=== PATIENT | female | born 1935 | race Caucasian/White ===

== ENCOUNTER 2020-09-03 13:22 | Outpatient (REF) | payer MEDICARE, SELFPAY ==
--- NOTE | 2020-09-03 13:52 | XR_ITS ---
EXAMINATION: XR LUMBOSACRAL SPINE CLINICAL INFORMATION: Back pain. COMPARISON: None TECHNIQUE: Three views of the lumbosacral spine. FINDINGS: There is normal lumbar lordosis. There is mild levoscoliosis The vertebral heights are normal. There is loss of disc height virtually at every disc level with ventral spondylosis. No lytic or sclerotic process seen. The paravertebral soft tissues are normal. XR/XR lumbar spine 2-3V IMPRESSION: Degenerative disc changes lumbar spine with mild levoscoliosis and spondylosis. No visible acute fracture or dislocation.
[2020-09-03 14:30] LABS: MANUAL DIFF FLAG NO
[2020-09-03 14:40] LABS: Basophils Absolute Auto 0.1 X10*3/uL (0.0-0.2); Basophils Percent Auto 1.2 % (0-2); Eosinophils Absolute Auto 0.2 X10*3/uL (0.0-0.4); Eosinophils Percent Auto 2.2 % (0-4); Hemoglobin 14.4 g/dl (12.0-16.0); Imm Gran Abs Auto 0.05 X10*3/uL (0.00-0.03); Imm Gran Pct Auto 0.6 % (0.0-0.4); Lymphocytes Absolute Auto 1.8 X10*3/uL (1.2-4.9); Lymphocytes Percent Auto 20.8 % (20-40); Mean Corpuscular HGB Conc 32.7 g/dl (31.0-35.0); Mean Corpuscular Hemoglobin 28.6 pg (27.0-33.0); Mean Corpuscular Volume 87.5 fL (80-98); Monocytes Absolute Auto 1.3 X10*3/uL (0.1-1.2); Monocytes Percent Auto 14.9 % (2-11); Neutrophils Absolute Auto 5.2 X10*3/uL (2.0-8.3); Neutrophils Percent Auto 60.3 % (45-73); Platelet Count 307 X10*3/uL (160-400); Red Blood Count 5.03 X10*6/uL (4.20-5.50); Red Cell Distribution Width 14.7 % (11.0-16.0); White Blood Count 8.7 X10*3/uL (4.8-10.8)
[2020-09-03 15:13] LABS: Alanine Aminotransferase 11 U/L (0-31); Alkaline Phosphatase 69 U/L (39-117); Anion Gap 15 (12-20); Aspartate Amino Transferase 20 U/L (5-31); Bilirubin Total 0.3 mg/dL (0.0-1.0); Blood Urea Nitrogen 20 mg/dL (9-16); C Reactive Protein 0.04 mg/dL (< or = 0.50); Calcium 9.4 mg/dL (8.4-10.2); Carbon Dioxide 25 mmol/L (22-29); Chloride 102 mmol/L (96-108); Estimated Glomerular Filt Rate 51; Glucose Random 84 mg/dL (60-115); Potassium 5.5 mmol/l (3.3-5.1); Sodium 136 mmol/L (135-145); Total Protein 7.1 g/dL (6.5-8.0)
== END 2020-09-03 13:23 | disposition home or self-care (01) ==
LOC: HO.LAB 13:22
PROVIDERS: PCP Internal Medicine; Visit Provider Internal Medicine
DX: M54.9 Dorsalgia, unspecified (principal); K21.9 Gastro-esophageal reflux disease without esophagitis; J44.9 Chronic obstructive pulmonary disease, unspecified; I10 Essential (primary) hypertension
CPT/HCPCS: 36415; 72100; 80053; 85025; 86140

== ENCOUNTER 2021-02-09 10:57 | Outpatient (REF) | payer MEDICARE, SELFPAY ==
--- NOTE | ~2021-02-09 | XR_ITS ---
EXAMINATION: XR CHEST CLINICAL INFORMATION: Chest wall pain, right. Hypertension. COMPARISON: Previous chest x-rays most recent February [address] February 2020 TECHNIQUE: 2 views of the chest were obtained. FINDINGS: The cardiac and mediastinal contours are stable. There is slight elevation of the right hemidiaphragm similar to previous exams. The lungs are clear. There is blunting of the right costophrenic angle that is unchanged. When compared with previous CT scan there is evidence of previous right lower lobe lobectomy. There is no left pleural effusion. There is no pneumothorax. There are degenerative changes of the spine and thoracolumbar scoliosis. No rib fracture or bone lesion is seen.. XR/XR chest 2V IMPRESSION: Stable postsurgical changes to the right hemithorax with elevation of the right hemidiaphragm and blunting of the costophrenic angle. No evidence for acute disease in the chest.
[2021-02-09 11:30] LABS: MANUAL DIFF FLAG NO
[2021-02-09 11:36] LABS: Basophils Absolute Auto 0.1 X10*3/uL (0.0-0.2); Basophils Percent Auto 0.8 % (0-2); Eosinophils Absolute Auto 0.2 X10*3/uL (0.0-0.4); Hematocrit 44.6 % (37-47); Hemoglobin 14.6 g/dl (12.0-16.0); Imm Gran Abs Auto 0.04 X10*3/uL (0.00-0.03); Imm Gran Pct Auto 0.4 % (0.0-0.4); Lymphocytes Percent Auto 22.5 % (20-40); Mean Corpuscular HGB Conc 32.7 g/dl (31.0-35.0); Mean Corpuscular Hemoglobin 28.5 pg (27.0-33.0); Mean Corpuscular Volume 86.9 fL (80-98); Mean Platelet Volume 11.7 fL (9.4-12.3); Monocytes Absolute Auto 1.2 X10*3/uL (0.1-1.2); Monocytes Percent Auto 13.4 % (2-11); Neutrophils Absolute Auto 5.5 X10*3/uL (2.0-8.3); Neutrophils Percent Auto 60.9 % (45-73); Platelet Count 267 X10*3/uL (160-400); Red Blood Count 5.13 X10*6/uL (4.20-5.50); Red Cell Distribution Width 15.2 % (11.0-16.0)
[2021-02-09 12:17] LABS: Alanine Aminotransferase 13 U/L (0-31); Alkaline Phosphatase 65 U/L (39-117); Anion Gap 16 (12-20); Aspartate Amino Transferase 19 U/L (5-31); Bilirubin Total 0.4 mg/dL (0.0-1.0); Blood Urea Nitrogen 19 mg/dL (9-16); C Reactive Protein 0.04 mg/dL (< or = 0.50); Calcium 9.3 mg/dL (8.4-10.2); Carbon Dioxide 24 mmol/L (22-29); Chloride 102 mmol/L (96-108); Estimated Glomerular Filt Rate 54; Glucose Random 89 mg/dL (60-115); Potassium 5.3 mmol/L (3.3-5.1); Sodium 137 mmol/L (135-145); Total Protein 7.1 g/dL (6.5-8.0)
== END 2021-02-09 10:58 | disposition home or self-care (01) ==
LOC: HO.LAB 10:57
PROVIDERS: PCP Internal Medicine; Visit Provider Internal Medicine
DX: I12.9 Hypertensive chronic kidney disease with stage 1 through stage 4 chronic kidney disease, or unspecified chronic kidney disease (principal); N18.9 Chronic kidney disease, unspecified; R07.89 Other chest pain
CPT/HCPCS: 36415; 71046; 80053; 85025; 86140

== ENCOUNTER → 2021-05-27 14:14 | Outpatient (BNVA) | payer MEDICARE, SELFPAY | PROVIDERS: PCP Internal Medicine; Visit Provider Internal Medicine | DX: R05 Cough (principal); J44.9 Chronic obstructive pulmonary disease, unspecified; R53.83 Other fatigue; Z79.899 Other long term (current) drug therapy | CPT/HCPCS: 99202 ==

== ENCOUNTER 2021-06-23 12:49 | Outpatient (REF) | payer MEDICARE, SELFPAY ==
--- NOTE | 2021-06-23 14:12 | PFT_ITS ---
Forced vital capacity is normal. FEV1 is slightly reduced. [id number] and MVV are moderately reduced. Post bronchodilator therapy, there is no significant response. Total lung capacity and residual volume are slightly decreased. Diffusion capacity is markedly decreased. Resting O2 saturation 91% and with 6 minutes walking, the patient had an oxygen dropped to 84% to 85%, after oxygen 2 L/minute, O2 saturation remained around 94%. IMPRESSION: Mild obstructive airway disorder. Mild restrictive lung disorder. Marked decrease in the diffusion capacity, probably related to pulmonary emphysema and non-pulmonary factors. No significant response to bronchodilator therapy was noted. MD MIKE Trinidad/MODL / [id number]
== END 2021-06-23 12:50 | disposition home or self-care (01) ==
LOC: HO.RESP 12:49
PROVIDERS: PCP Internal Medicine; Visit Provider Internal Medicine
DX: J44.9 Chronic obstructive pulmonary disease, unspecified (principal); R09.02 Hypoxemia; Z79.899 Other long term (current) drug therapy
CPT/HCPCS: 94060; 94727; 94729; 99212

== ENCOUNTER 2021-08-10 12:03 | Outpatient (REF) | payer MEDICARE, SELFPAY ==
--- NOTE | ~2021-08-10 | XR_ITS ---
EXAMINATION: XR LUMBOSACRAL SPINE CLINICAL INFORMATION: Low back pain. COMPARISON: Lumbar spine 09/03/2020 TECHNIQUE: Three views of the lumbosacral spine. FINDINGS: Is maintained lumbar lordosis with grade 1 anterolisthesis L4 over L5 and grade 1 retrolisthesis L2 over L3 L3. Is mild levoscoliosis with loss of disc height from L2-L3 through L5/S1 disc levels. No acute fracture or lytic process seen. Paravertebral soft tissues are normal. XR/XR lumbar spine 2-3V IMPRESSION: Listhesis as described above. Severe degenerative disc changes with mild to moderate levoscoliosis midlumbar spine. No acute fracture or lytic process seen.
--- NOTE | ~2021-08-10 | XR_ITS ---
EXAMINATION: XR PELVIS CLINICAL INFORMATION: Low back pain. COMPARISON: None TECHNIQUE: AP view of the pelvis. FINDINGS: There is normal symmetry of bilateral hip joints and SI joints. No visible acute fracture or dislocation seen. There is no lytic process. The soft tissues are normal. XR/XR pelvis 1-2V IMPRESSION: Unremarkable AP pelvis exam.
[2021-08-10 12:25] LABS: MANUAL DIFF FLAG NO
[2021-08-10 12:30] LABS: Basophils Absolute Auto 0.1 X10*3/uL (0.0-0.2); Eosinophils Absolute Auto 0.1 X10*3/uL (0.0-0.4); Eosinophils Percent Auto 1.8 % (0-4); Hematocrit 43.9 % (37-47); Hemoglobin 14.4 g/dl (12.0-16.0); Imm Gran Abs Auto 0.04 X10*3/uL (0.00-0.03); Imm Gran Pct Auto 0.5 % (0.0-0.4); Lymphocytes Absolute Auto 1.8 X10*3/uL (1.2-4.9); Lymphocytes Percent Auto 22.7 % (20-40); Mean Corpuscular HGB Conc 32.8 g/dl (31.0-35.0); Mean Corpuscular Hemoglobin 28.5 pg (27.0-33.0); Mean Corpuscular Volume 86.8 fL (80-98); Mean Platelet Volume 11.1 fL (9.4-12.3); Monocytes Absolute Auto 1.1 X10*3/uL (0.1-1.2); Monocytes Percent Auto 13.5 % (2-11); Neutrophils Absolute Auto 4.8 X10*3/uL (2.0-8.3); Neutrophils Percent Auto 60.5 % (45-73); Platelet Count 246 X10*3/uL (160-400); Red Blood Count 5.06 X10*6/uL (4.20-5.50); Red Cell Distribution Width 15.4 % (11.0-16.0); White Blood Count 7.9 X10*3/uL (4.8-10.8)
[2021-08-10 13:01] LABS: Alanine Aminotransferase 15 U/L (0-31); Alkaline Phosphatase 68 U/L (39-117); Anion Gap 13 (12-20); Aspartate Amino Transferase 21 U/L (5-31); Bilirubin Total 0.5 mg/dL (0.0-1.0); Blood Urea Nitrogen 15 mg/dL (9-16); Calcium 9.4 mg/dL (8.4-10.2); Carbon Dioxide 23 mmol/L (22-29); Chloride 102 mmol/L (96-108); Estimated Glomerular Filt Rate 55; Glucose Random 91 mg/dL (60-115); Sodium 133 mmol/L (135-145); Total Protein 7.1 g/dL (6.5-8.0)
== END 2021-08-10 12:04 | disposition home or self-care (01) ==
LOC: HO.LAB 12:03
PROVIDERS: Visit Provider Internal Medicine
DX: J44.9 Chronic obstructive pulmonary disease, unspecified (principal); R05 Cough; I12.9 Hypertensive chronic kidney disease with stage 1 through stage 4 chronic kidney disease, or unspecified chronic kidney disease; N18.9 Chronic kidney disease, unspecified; M54.5 Low back pain; R09.02 Hypoxemia
CPT/HCPCS: 36415; 72100; 72170; 80053; 85025; 99212

== ENCOUNTER 2021-12-08 12:10 | Outpatient (REF) | payer MEDICARE, SELFPAY ==
[2021-12-08 12:24] LABS: MANUAL DIFF FLAG NO
[2021-12-08 12:36] LABS: Basophils Absolute Auto 0.1 X10*3/uL (0.0-0.2); Basophils Percent Auto 0.9 % (0-2); Eosinophils Absolute Auto 0.2 X10*3/uL (0.0-0.4); Eosinophils Percent Auto 2.1 % (0-4); Hematocrit 45.4 % (37.0-47.0); Hemoglobin 14.7 g/dl (12.0-16.0); Imm Gran Abs Auto 0.05 X10*3/uL (0.00-0.03); Imm Gran Pct Auto 0.6 % (0.0-0.4); Lymphocytes Percent Auto 23.9 % (20-40); Mean Corpuscular HGB Conc 32.4 g/dl (31.0-35.0); Mean Corpuscular Hemoglobin 28.3 pg (27.0-33.0); Mean Corpuscular Volume 87.5 fL (80.0-98.0); Mean Platelet Volume 11.4 fL (9.4-12.3); Monocytes Absolute Auto 1.2 X10*3/uL (0.1-1.2); Monocytes Percent Auto 14.2 % (2-11); Neutrophils Percent Auto 58.3 % (45-73); Platelet Count 250 X10*3/uL (160-400); Red Blood Count 5.19 X10*6/uL (4.20-5.50); Red Cell Distribution Width 15.8 % (11.0-16.0); White Blood Count 8.5 X10*3/uL (4.8-10.8)
[2021-12-08 12:56] LABS: Anion Gap 13 (12-20); Blood Urea Nitrogen 21 mg/dL (9-16); C Reactive Protein 0.04 mg/dL (< or = 0.50); Calcium 9.8 mg/dL (8.4-10.2); Carbon Dioxide 24 mmol/L (22-29); Chloride 105 mmol/L (96-108); Estimated Glomerular Filt Rate 52; Glucose Random 84 mg/dL (60-115); Potassium 5.2 mmol/L (3.3-5.1); Sodium 137 mmol/L (135-145)
== END 2021-12-08 12:11 | disposition home or self-care (01) ==
LOC: HO.LAB 12:10
PROVIDERS: PCP Internal Medicine; Visit Provider Internal Medicine
DX: R04.2 Hemoptysis (principal); J44.9 Chronic obstructive pulmonary disease, unspecified; N18.9 Chronic kidney disease, unspecified
CPT/HCPCS: 36415; 80048; 85025; 86140

== ENCOUNTER 2021-12-31 13:12 | Outpatient (REF) | payer MEDICARE, SELFPAY ==
--- NOTE | ~2021-12-31 | CT_ITS ---
EXAMINATION: CT CHEST WITHOUT CONTRAST CLINICAL INFORMATION: Unspecified voice and resonance disorder. COMPARISON: CT chest 03/11/2020. TECHNIQUE: Multidetector volumetric CT imaging of the chest was done. Axial MIP volume rendering provided. Sagittal and coronal reformatted images were obtained. This CT examination was performed using dose optimization techniques as appropriate, variously including the following: *Automated exposure control *Adjustment of mA and/or kV according to patient size (this includes techniques or standardized protocols for targeted exams where dose is matched to indication/reason for exam; i.e. extremities or head) *Use of iterative reconstruction technique DLP: 417 mGy-cm FINDINGS: DERRICKMAN HELPER: Well-inflated lungs. LUNGS: The lungs are hyperinflated but clear of acute pneumonic process. Tiny pulmonary nodules described measuring a few millimeters are stable to previous exam. There is no new pulmonary nodule, mass or consolidation. No ground-glass density seen. There is minimal peribronchial thickening in both upper lobes but no bronchiectasis. Mild atelectasis changes are seen in the right middle lobe subpleural-based. Thick surgical scar is seen along the right middle lobe adjacent to the mediastinum. MEDIASTINUM: The thyroid lobes are symmetrical. The central trachea and the bronchi are widely patent. No abnormal size lymph node or mass seen in the hilar regions or the mediastinum. There are moderate coronary artery calcifications present. No pericardial effusion seen. No abnormal mediastinal lymph nodes. PLEURA: There is minimal right posterior pleural thickening. No evidence of pleural calcification or effusion. AXILLA: There are small scattered bilateral axillary lymph nodes. UPPER ABDOMEN: Visualized liver, spleen, pancreas and bilateral adrenal glands are unremarkable. OSSEOUS STRUCTURES: No lytic or sclerotic process seen. CT/CT chest wo con IMPRESSION: Postsurgical changes following right lower lobectomy. No change in small 1-2 mm pulmonary nodules right lower lobe. There are no new nodules seen. No abnormal mediastinal or axillary lymphadenopathy. Fleischner guidelines were followed.
--- NOTE | ~2021-12-31 | CT_ITS ---
EXAMINATION: CT SOFT TISSUE NECK WITHOUT CONTRAST CLINICAL INFORMATION: 86-year-old with unspecified voice and resonance disorder. COMPARISON: None. TECHNIQUE: Helical imaging was performed in the axial plane with generation of coronal and sagittal reformatted images. This CT examination was performed using dose optimization techniques as appropriate, variously including the following: *Automated exposure control *Adjustment of mA and/or kV according to patient size (this includes techniques or standardized protocols for targeted exams where dose is matched to indication/reason for exam; i.e. extremities or head) *Use of iterative reconstruction technique DLP: 417 mGy-cm FINDINGS: Skull Base: The bony skull base appears grossly intact. Osteopenia is noted. The visualized calvarium is grossly intact. The mastoids and middle ear cavities are unopacified. There is a tiny sclerotic focus in the alveolar process of the maxilla on the left, which is nonspecific and may be a bone marrow and. The visualized intracranial soft tissue structures are grossly unremarkable within the limitations of the exam. Limited assessment. Bilateral lens extractions are suspected at both globes, with nonspecific scleral calcifications bilaterally. Suprahyoid Neck: The nasopharynx, flash oven operator and parapharyngeal spaces appear within normal limits. Multiple calcified tonsilloliths are seen within the pharyngeal tonsils bilaterally, which are otherwise bilaterally symmetric with unremarkable noncontrast attenuation. The oropharynx is smoothly contoured without nodularity and there is a normal appearance to the retropharyngeal soft tissues. The parotid glands are bilaterally symmetric and are normal in morphology and attenuation. The oral tongue, base of the tongue and floor of the mouth structures demonstrate relative symmetry and unremarkable in attenuation. Small, normal-sized, nonpathologic-appearing bilateral submandibular space lymph nodes and bilateral IJ chain lymph nodes are noted. Vallecula and epiglottis appear smoothly contoured. Submandibular glands are unremarkable. Minor calcified plaque at both carotid bulbs. Infrahyoid Neck: The hypopharynx is smoothly contoured. The aryepiglottic folds, preepiglottic and paraglottic fat stripes appear within normal limits. The true vocal folds are symmetric and are apposed and therefore the free edges are not clearly distinct. There is dense, asymmetric calcification of the arytenoid cartilage on the right, which is a normal variant in the absence of any history of laryngeal cancer. No definite soft tissue mass seen in this region. Piriform sinuses appear relatively symmetric and smoothly contoured. The thyroid gland demonstrates multiple, subcentimeter hyperdense nodules in both thyroid lobes. Not clinically significant and probably unchanged from previous CT of 03/10/2020. No follow up recommended. No cervical lymphadenopathy at this level. Upper Chest: 3 mm ground-glass nodule in the left upper lobe noted on image 357 of series 4. Probable pleural-parenchymal scarring in the right lung apex and to a lesser degree left lung apex. Extensive atheromatous calcification of the thoracic aorta. Atheromatous calcifications of the brachiocephalic vessels are also noted. Skeletal: Multilevel cervical DDD and spondylosis, with mild anterolisthesis at C3-C4 and minimal anterolisthesis at C4-C5. Osteopenia. Multilevel cervical facet arthropathy and uncovertebral arthrosis with severe left-sided neural foraminal stenosis at C3-C4 as well as other levels of okgzbnei-py-[id number] foraminal stenosis. Other Comments: None. CT/CT soft tissue neck wo con IMPRESSION: 1. No evidence for vocal cord paralysis or laryngeal mass. Asymmetric calcification of the right arytenoid cartilages noted, which can be a normal variant and is unchanged from previous CT of 03/10/2020. 2. No cervical lymphadenopathy identified. 3. Pulmonary parenchymal findings. See accompanying CT of the chest of 11/30/2021. 4. Cervical degenerative changes as discussed above.
== END 2021-12-31 13:13 | disposition home or self-care (01) ==
LOC: HO.CT 13:12
PROVIDERS: PCP Internal Medicine; Visit Provider Internal Medicine
DX: R49.9 Unspecified voice and resonance disorder (principal)
CPT/HCPCS: 70490; 71250

== ENCOUNTER 2022-01-11 12:27 | Outpatient (REF) | payer MEDICARE, SELFPAY ==
[2022-01-11 12:53] LABS: MANUAL DIFF FLAG NO
[2022-01-11 13:04] LABS: Basophils Absolute Auto 0.1 X10*3/uL (0.0-0.2); Eosinophils Absolute Auto 0.1 X10*3/uL (0.0-0.4); Eosinophils Percent Auto 1.1 % (0-4); Hematocrit 48.2 % (37.0-47.0); Hemoglobin 15.2 g/dl (12.0-16.0); Imm Gran Abs Auto 0.05 X10*3/uL (0.00-0.03); Imm Gran Pct Auto 0.5 % (0.0-0.4); Lymphocytes Absolute Auto 1.6 X10*3/uL (1.2-4.9); Lymphocytes Percent Auto 17.4 % (20-40); Mean Corpuscular HGB Conc 31.5 g/dl (31.0-35.0); Mean Corpuscular Volume 88.9 fL (80.0-98.0); Mean Platelet Volume 11.6 fL (9.4-12.3); Monocytes Absolute Auto 1.1 X10*3/uL (0.1-1.2); Monocytes Percent Auto 12.2 % (2-11); Neutrophils Absolute Auto 6.2 x10*3/uL (2.0-8.3); Neutrophils Percent Auto 67.8 % (45-73); Platelet Count 241 X10*3/uL (160-400); Red Blood Count 5.42 X10*6/uL (4.20-5.50); Red Cell Distribution Width 14.9 % (11.0-16.0); White Blood Count 9.2 X10*3/uL (4.8-10.8)
[2022-01-11 13:33] LABS: Alanine Aminotransferase 9 U/L (0-31); Alkaline Phosphatase 65 U/L (39-117); Anion Gap 13 (12-20); Aspartate Amino Transferase 22 U/L (5-31); Bilirubin Total 0.6 mg/dL (0.0-1.0); Blood Urea Nitrogen 18 mg/dL (9-16); Calcium 9.8 mg/dL (8.4-10.2); Carbon Dioxide 24 mmol/L (22-29); Chloride 104 mmol/L (96-108); Estimated Glomerular Filt Rate 54; Glucose Random 90 mg/dL (60-115); Potassium 4.9 mmol/L (3.3-5.1); Sodium 136 mmol/L (135-145); Total Protein 7.3 g/dL (6.5-8.0)
== END 2022-01-11 12:28 | disposition home or self-care (01) ==
LOC: HO.LAB 12:27
PROVIDERS: PCP Internal Medicine; Visit Provider Internal Medicine
DX: J44.9 Chronic obstructive pulmonary disease, unspecified (principal); M54.9 Dorsalgia, unspecified; I12.9 Hypertensive chronic kidney disease with stage 1 through stage 4 chronic kidney disease, or unspecified chronic kidney disease; N18.9 Chronic kidney disease, unspecified
CPT/HCPCS: 36415; 80053; 85025

== ENCOUNTER 2022-05-03 14:00 | Outpatient (REF) | payer MEDICARE, SELFPAY ==
--- NOTE | ~2022-05-03 | XR_ITS ---
EXAMINATION: CHEST X-RAY AND BILATERAL RIB X-RAYS CLINICAL INFORMATION: Adenocarcinoma of the lung COMPARISON: Previous chest x-ray January [address] December 2021 TECHNIQUE: PA and lateral chest. 3 views of the ribs FINDINGS: . CHEST: The cardiac and mediastinal contours are stable. There is elevation of the right hemidiaphragm and blunting of the right costophrenic angle. This is similar to previous exams and probably related to postsurgical changes from right lower lobe lobectomy. The lungs are clear. There is no pleural effusion or pneumothorax. There are degenerative changes of the spine and scoliosis. There are old right posterior lateral eighth and ninth rib fractures. No acute rib fracture is seen. XR/XR ribs BI 3V IMPRESSION: Stable elevation of the right hemidiaphragm and blunting of the right lateral costophrenic angle from previous exams. No evidence for acute disease in the chest. Old right posterior lateral eighth and ninth rib fractures. No acute rib fracture seen.
--- NOTE | ~2022-05-03 | XR_ITS ---
EXAMINATION: CHEST X-RAY AND BILATERAL RIB X-RAYS CLINICAL INFORMATION: Adenocarcinoma of the lung COMPARISON: Previous chest x-ray January [address] December 2021 TECHNIQUE: PA and lateral chest. 3 views of the ribs FINDINGS: . CHEST: The cardiac and mediastinal contours are stable. There is elevation of the right hemidiaphragm and blunting of the right costophrenic angle. This is similar to previous exams and probably related to postsurgical changes from right lower lobe lobectomy. The lungs are clear. There is no pleural effusion or pneumothorax. There are degenerative changes of the spine and scoliosis. There are old right posterior lateral eighth and ninth rib fractures. No acute rib fracture is seen. XR/XR chest 2V IMPRESSION: Stable elevation of the right hemidiaphragm and blunting of the right lateral costophrenic angle from previous exams. No evidence for acute disease in the chest. Old right posterior lateral eighth and ninth rib fractures. No acute rib fracture seen.
== END 2022-05-03 14:01 | disposition home or self-care (01) ==
LOC: HO.XRAY 14:00
PROVIDERS: PCP Internal Medicine; Visit Provider Internal Medicine Medical Oncology
DX: C34.90 Malignant neoplasm of unspecified part of unspecified bronchus or lung (principal)
CPT/HCPCS: 71046; 71110

== ENCOUNTER 2023-01-31 09:10 | Outpatient (REF) | payer MEDICARE, SELFPAY ==
--- NOTE | ~2023-01-31 | CT_ITS ---
EXAMINATION: CT CHEST WITHOUT CONTRAST CLINICAL INFORMATION: History of lung cancer, chronic cough, rib pain COMPARISON: 12/31/2021 TECHNIQUE: Multidetector volumetric CT imaging of the chest was done. Axial MIP volume rendering provided. Sagittal and coronal reformatted images were obtained. This CT examination was performed using dose optimization techniques as appropriate, variously including the following: *Automated exposure control *Adjustment of mA and/or kV according to patient size (this includes techniques or standardized protocols for targeted exams where dose is matched to indication/reason for exam; i.e. extremities or head) *Use of iterative reconstruction technique DLP: 115.5 mGy-cm FINDINGS: LUNGS: Postsurgical changes of the right lung consistent with partial lobectomies. Mild bronchial wall thickening in the bilateral lower lobes likely reflects small airways inflammation/infection. Right lower lobe 2 mm nodule is unchanged (5:232) Central airways are patent. No new or enlarging pulmonary nodule. MEDIASTINUM: Dense coronary artery atherosclerotic calcifications. No mediastinal adenopathy. PLEURA: There is no pleural effusion. No pleural mass or thickening. AXILLA: No lymphadenopathy. UPPER ABDOMEN: Unremarkable. OSSEOUS STRUCTURES/SOFT TISSUES: Old right-sided rib fractures. Degenerative changes of the spine. CT/CT chest wo IV con IMPRESSION: 1. Mild bronchial wall thickening in the bilateral lower lobes likely reflects small airways inflammation/infection. 2. Right lower lobe 2 mm nodule is unchanged. No new or enlarging pulmonary nodule.
== END 2023-01-31 09:11 | disposition home or self-care (01) ==
LOC: HO.CT 09:10
PROVIDERS: Visit Provider Internal Medicine
DX: R07.81 Pleurodynia (principal); R05.3 Chronic cough; Z85.118 Personal history of other malignant neoplasm of bronchus and lung
CPT/HCPCS: 71250

== ENCOUNTER 2023-04-25 15:06 | Outpatient (REF) | payer MEDICARE, SELFPAY ==
--- NOTE | ~2023-04-25 | CT_ITS ---
EXAMINATION: CT head/brain wo IV con CLINICAL INFORMATION: Reason for Exam DIZZINESS GIDDINESS S/P FALL COMPARISON: None. TECHNIQUE: Contiguous axial imaging was performed from the skull base to vertex without intravenous contrast. Sagittal and coronal reformatted images were obtained. This CT examination was performed using dose optimization techniques as appropriate, variously including the following: * Automated exposure control * Adjustment of mA and/or kV according to patient size (this includes techniques or standardized protocols for targeted exams where dose is matched to indication/reason for exam; i.e. extremities or head) Use of iterative reconstruction technique DLP: 621 mGy-cm FINDINGS: No acute osseous or soft tissue abnormality. The mastoid air cells and visualized portions of the paranasal sinuses are well aerated. There is no evidence of acute intracranial hemorrhage or territorial infarction. No abnormal mass effect or midline shift is seen. [place] to white matter differentiation is well preserved. No extra-axial fluid collections are identified. No hydrocephalus. No significant volume loss. Patchy periventricular and deep white matter hypoattenuation is consistent with mild small vessel ischemic changes. CT/CT head/brain wo IV con IMPRESSION: No acute intracranial abnormality including hemorrhage, mass effect, hydrocephalus, or acute territorial edematous infarction.
== END 2023-04-25 15:07 | disposition home or self-care (01) ==
LOC: HO.CT 15:06
PROVIDERS: PCP Internal Medicine; Visit Provider Internal Medicine
DX: R42 Dizziness and giddiness (principal)
CPT/HCPCS: 70450

== ENCOUNTER 2024-11-07 09:24 | Outpatient (REF) | payer MEDICARE, SELFPAY ==
--- NOTE | ~2024-11-07 | XR_ITS ---
EXAMINATION: XR CHEST CLINICAL INFORMATION: COPD, cough. COMPARISON: Most recent chest CT dated 01/31/2023. TECHNIQUE: 2 views of the chest were obtained. FINDINGS: Small right-sided pleural effusion, new when compared to the prior examination. No left-sided pleural effusion. No pneumothorax. Stable cardiomediastinal silhouette. No focal airspace consolidation. XR/XR chest 2V IMPRESSION: Small right-sided pleural effusion, new when compared to the prior examination. Electronically signed by: Juan Mitchell MD 11/07/2024 02:34 PM EST
--- NOTE | ~2024-11-07 | XR_ITS ---
EXAMINATION: XR PELVIS CLINICAL INFORMATION: Pain. COMPARISON: Pelvic radiograph dated 08/10/2021. TECHNIQUE: AP view of the pelvis. FINDINGS: No acute fracture or dislocation. Mild bilateral hip osteoarthritis with chondrocalcinosis, unchanged. No concerning lytic or blastic osseous lesion. No evidence of femoral head avascular necrosis. Phleboliths within the pelvis. XR/XR pelvis 1-2V IMPRESSION: Mild bilateral hip osteoarthritis with chondrocalcinosis, unchanged. Electronically signed by: Juan Mitchell MD 11/07/2024 02:34 PM BILL
[2024-11-07 10:01] LABS: MANUAL DIFF FLAG NO
[2024-11-07 10:50] LABS: Basophils Absolute Auto 0.1 X10*3/uL (0.0-0.2); Basophils Percent Auto 1.5 % (0-2); Eosinophils Absolute Auto 0.2 X10*3/uL (0.0-0.4); Eosinophils Percent Auto 2.4 % (0-4); Hematocrit 43.4 % (37.0-47.0); Hemoglobin 13.9 g/dl (12.0-16.0); Imm Gran Abs Auto 0.03 X10*3/uL (0.00-0.03); Imm Gran Pct Auto 0.4 % (0.0-0.4); Lymphocytes Absolute Auto 1.5 X10*3/uL (1.2-4.9); Lymphocytes Percent Auto 19.6 % (20-40); Mean Corpuscular Hemoglobin 25.6 pg (27.0-33.0); Mean Corpuscular Volume 80.1 fL (80.0-98.0); Mean Platelet Volume 11.8 fL (9.4-12.3); Monocytes Percent Auto 13.8 % (2-11); Neutrophils Absolute Auto 4.6 x10*3/uL (2.0-8.3); Neutrophils Percent Auto 62.3 % (45-73); Platelet Count 280 X10*3/uL (160-400); Red Blood Count 5.42 X10*6/uL (4.20-5.50); Red Cell Distribution Width 17.7 % (11.0-16.0); White Blood Count 7.4 X10*3/uL (4.8-10.8)
[2024-11-07 11:26] LABS: Alanine Aminotransferase 17 U/L (0-31); Albumin Level 4.1 g/dL (3.5-5.0); Anion Gap 13 (12-20); Aspartate Amino Transferase 26 U/L (5-31); Bilirubin Total 0.5 mg/dL (0.0-1.0); Blood Urea Nitrogen 20 mg/dL (9-16); C Reactive Protein < 0.04 mg/dL (< or = 0.50); Calcium 9.6 mg/dL (8.4-10.2); Carbon Dioxide 25 mmol/L (22-29); Chloride 102 mmol/L (96-108); Estimated Glomerular Filt Rate 56; Glucose Random 103 mg/dL (60-115); Potassium 4.7 mmol/L (3.3-5.1); Sodium 135 mmol/L (135-145); Total Protein 7.6 g/dL (6.5-8.0)
[2024-11-07 11:53] LABS: Thyroid Stimulating Hormone 1.57 uIU/mL (0.32-4.0)
[2024-11-07 11:58] LABS: Alkaline Phosphatase 57 U/L (39-117)
[2024-11-07 11:59] LABS: Vitamin B12 1062 pg/mL (200-900)
== END 2024-11-07 09:25 | disposition home or self-care (01) ==
LOC: HO.XRAY 09:24
PROVIDERS: PCP Internal Medicine; Visit Provider Internal Medicine
DX: J90 Pleural effusion, not elsewhere classified (principal); M16.0 Bilateral primary osteoarthritis of hip; J44.9 Chronic obstructive pulmonary disease, unspecified; R06.9 Unspecified abnormalities of breathing; Z85.118 Personal history of other malignant neoplasm of bronchus and lung; R63.4 Abnormal weight loss
CPT/HCPCS: 36415; 71046; 72170; 80053; 82607; 84443; 85025; 86140

== ENCOUNTER 2025-04-03 12:53 | Outpatient (AMB) | payer MEDICARE, SELFPAY ==
--- OUTSIDE RECORDS SUMMARY | 2025-04-03 12:56 | XMS_ITS | Patient Health Record ---
Author Organization Kyle Lechuga III, MD Address [address] [place] [address] Care Team Providers Care Lead Javascript Engineer Name Role Phone Júnior Sunshine MD Primary Care Provider Kyle Gomes Unavailable [phone] Allergies No Known Allergies Reason For Referral No Information Medications Medication SIG (Take, Route, Frequency, Duration) Notes Start Date End Date Status Spiriva HandiHaler 18 MCG 1 capsule Inha lation Once a day Active Robitussin AC 6.25-2.5-160 MG/5ML 20 ml as needed Orally every 4 hrs Active Omeprazole 40 MG 1 capsule Orally Onc e a day Active Losartan Potassium 50 MG 1 tablet Orally Once a day Active Metoprolol Tartrate 25 MG 1/2 tablet Ora lly Twice a day Active Aleve 220 MG 1 tablet as needed O rally every 12 hrs Active Breo Ellipta 100-25 MCG/INH 1 puff Inhalation Once a day Active Immunizations Vaccine Route Administration Date Status Comme nts Influenza Unknown 08/13/2013 Administered Pneumococcal Unknown 11/13/2009 Administered Social History Tobacco Use: Social History Observation Description Date Details (start date - stop date) Former Smoker NA - NA Tobacco Use/Smoking Question Answer Notes Patient is a former smoker How long has it been since you last smoked? 1-5 years Alcohol Screen Question Answer Notes Did you have a drink containing alcohol in the p ast year? No Points 0 Interpretation Negative Problems Problem Type SNOMED Code ICD Code Onset Dates Problem Status W/U Status Risk Notes Problem 3168555 Former smoker (Z87.891) Active confirmed She is highly motivated not to smoke. She has a plan to prevent relapse in times of stress and illness. Problem 87007654 Hypertension (I10) Active confirmed Her blood press ure stable at this time and no change in her regimen is necessary. Problem 51520495 COPD (chronic obstructive pulmonary disease) (J44.9) Active confirmed Her COPD is stable and she is breathing room air comfortably. No change in her regimen was necessary. Problem 08208720 Colonic polyp (K63.5) Active confirmed Problem 407409425 Osteoarthritis (M19.90) Active confirmed Problem 727281760 Barretts esophagus (K22.70) Active confirmed I have strongly recommended that she see a digital product manager periodically for endoscopy. She has agreed to do so. Problem 607768449 Adenocarcinoma of lung (C34.90) Active confirmed There is cu rrently no sign of recurrent disease and she is comfortable breathing room air. He is medically stable only be followed annually. Problem 00088925 Pleural effusion on right (J90) Active confirmed The chest x-r ay is stable and no change is noted compared to previous examinations. Plan Of Treatment Pending Test Test Name Order Date XR CHEST 2 VIEW PA & LAT 03/29/2019 XR CHEST 2 VIEW PA & LAT 05/03/2022 XR RIBS BILATERAL 05/03/2022 Insurance Providers Payer Name Payer Address Payer Phone Subscriber Number Group Number Insured Name Patient Relationship to Insured Coverage Start Date Coverage End Date MEDICARE NGS [address] [place] [phone] [id number] Billie Rangel Self - patient is the insured [facility] [address] [place] [phone] [id number] Billie Rangel Self - patient is the insured Medical (General) History Medical History History ICD Code copd hypertension [id number] osteoarthritis dysfunctional uterine bleeding adenocarcinoma of the lung, right lower lobe,07/2013 tubular adenomas of the colon Rojas's esophagus Surgical History Surgery Date(Month/Year) hysterectomy 1985 right first toe surgery 1998 left knee replacement 2000 colonoscopy, Dr. Kyle Bhardwaj right lower lobectomy, adenocarcinoma of lung 07/2013
--- NOTE | 2025-04-03 13:07 | A.OFFPC_ITS ---
Vital Signs 04/03/25 13:15 Height 4 ft 9.09 in Weight 205 lb BMI 44.2 BP 128/90 H Respiration 18 Pulse 65 Pulse Source Pulse Oximeter Temp 97.7 F Temp Source Temporal Artery Scan Pulse Oximetry (%) 92 Oxygen Delivery Method Room Air Intake Visit Reasons: Routine Polystyrene Bead Molder Required: No Accompanied by: Self / Same As Patient Allergies No Known Allergies Allergy (Mild, Verified 04/03/25 13:08) N/A Tobacco use date assessed: 04/03/25 Fall risk assessment: No Falls in past year Last assessed Fall Risk: 04/03/25 Dental Screening Dental Screen Date: 04/03/25 Did you have a dental visit in the last 12 months?: No Did you have a dental problem in the last 6 months where you did not have access to dental care?: No Was dental information given to patient?: Patient has dentist (patient has dentures) HPI HPI Comments History of Present Illness Details The patient is a 89 year old female with a past medical history of hypertension, GERD, barretts, COPD, SAYDA, lung cancer, back pain presenting for follow up. Last seen by pcp in Oct. Low back pain with pain across the pelvis at that time. Xray was ordered. No fracture was identified. Still having quite severe low back pain, pelvic pain CV: On metoprolol-12.5 twice daily, losartan 50mg twice daily. Blood pressure well controlled COPD/SAYDA: on spiriva, breo. SAYDA untreated. Previously followed by pulmonology. Chronic cough, shortness of breath ROS see HPI PHYSICAL EXAM: GENERAL: Alert and oriented x 3. NAD EYES: EOMI. Anicteric. HENT: Moist mucous membranes. No scleral icterus. No cervical lymphadenopathy. LUNGS: Clear to auscultation bilaterally. CARDIOVASCULAR: Regular rate and rhythm. No murmur. No JVD. ABDOMEN: Soft, non-tender +bs EXTREMITIES: Decreased strength, plantar flexion right LE SKIN: No rashes or lesions. Warm. NEUROLOGIC: No focal neurological deficits. CN II-XII grossly intact PSYCHIATRIC: Cooperative. Appropriate mood and affect- [facility] Medical History Exercise hypoxemia COPD (chronic obstructive pulmonary disease) Cough in adult patient Family History Father No problems noted. Mother No problems noted. Social History Housing: House Alcohol intake: current Alcohol intake frequency: does not drink Patient Tobacco Use Status: Former Tobacco user service: No Current occupational status: retired Cognitive needs: No Hearing needs: No Vision needs: No Questionnaire PHQ-9 Over the last 2 weeks, how often have you been bothered by any of the following problems? 1. Little interest or pleasure in doing things: not at all 2. Feeling down, depressed, or hopeless: not at all 3. Trouble falling or staying asleep, or sleeping too much: not at all 4. Feeling tired or having little energy: not at all 5. Poor appetite or overeating: not at all 6. Feeling bad about yourself - or that you are a failure or have let yourself or your family down: not at all 7. Trouble concentrating on things, such as reading the newspaper or watching television: not at all 8. Moving or speaking so slowly that other people could have noticed. Or the opposite - being so fidgety or restless that you have been moving around a lot more than usual: not at all 9. Thoughts that you would be better off or of hurting yourself in some way: not at all Total score: 0 Source: Developed by Drs. Kyle Lambert, Luz Irene, Acosta Lindsey and colleagues, with an educational zandra from [employer]. Thrive Questionnaire Date Thrive assessed: 04/03/25 I am a: Patient What is your living situation today?: I have a steady place to live Within the past 12 months, did the food you bought not last and you didn't have the money to get more?: Never true Within the past 12 months, did you worry whether your food would run out before you got money to buy more?: Never true Do you have trouble paying for medicines?: No Do you have trouble getting transportation to medical appointments?: No Do you have trouble paying your heating and electricity bill?: No Do you have trouble taking care of your child, family member or friend?: No Do you have trouble with day-to-day activities such as bathing, preparing meals, shopping, managing finances, etc.?: No Are you currently unemployed and looking for a job?: No Are you interested in more education?: No Please select the resources that you would like help with: None THRIVE Score: 0 AUDIT C Alcohol Use Questionnaire (AUDIT-C) 1. How often do you have a drink containing alcohol?: Never 3. How often do you have six or more drinks on one occasion?: Never Total Score: 0 AUGUSTUS-7 AMB Questionnaire AUGUSTUS-7 Date AUGUSTUS - 7 assessed: 04/03/25 Feeling nervous, anxious, or on edge: 0 = Not at all Not being able to stop or control worryin = Not at all Worrying too much about different things: 0 = Not at all Trouble relaxin = Not at all Being so restless that it is hard to sit still: 0 = Not at all Becoming easily annoyed or irritable: 0 = Not at all Feeling afraid as if something awful might happen: 0 = Not at all Total AUGUSTUS-7 score (0-4 normal; 5-9 mild; 10-14 moderate; 15-21 severe): 0 Source: Developed by Drs. Kyle Lambert, Luz Irene, Acosta Lindsey and colleagues, with an educational zandra from [employer]. Physical exam (Primary Care) Vital Signs: Last Vital Signs Temp 97.7 F 04/03/25 13:15 Pulse 65 04/03/25 13:15 Resp 18 04/03/25 13:15 BP 128/90 H 04/03/25 13:15 Pulse Ox 92 04/03/25 13:15 Oxygen Delivery Method Room Air 04/03/25 13:15 BMI result Body Mass Index 44.2 Tobacco/Smoking Status: Tobacco use Status Tobacco use date assessed 04/03/25 04/03/25 13:09 Patient Tobacco Use Status Former Tobacco user 04/03/25 13:22 PHQ-9: PHQ-9 Score PHQ-9: Total score 0 04/03/25 13:29 Thrive Assessment: Date of Thrive Assessment Date Thrive assessed 04/03/25 04/03/25 13:09 Coding Level of Care Code New Pt Level 4 (58883) Complex EM visit Add On G2211 Diagnoses Degeneration of intervertebral disc of lumbar region with discogenic back pain and lower extremity pain M51.362 Disc-related pain type: discogenic back pain and lower extremity pain Osteoporosis, unspecified osteoporosis type, unspecified pathological fracture presence M81.0 Osteoporosis type: unspecified Presence of current pathological fracture: unspecified Low back pain M54.50 COPD (chronic obstructive pulmonary disease) J44.9 Cough R05.9 Assessment & Plan Assessment & Plan (1) DDD (degenerative disc disease), lumbar: Code(s): M51.369 - Other intervertebral disc degeneration, lumbar region without mention of lumbar back pain or lower extremity pain Category: Medical Qualifiers: Disc-related pain type: discogenic back pain and lower extremity pain Qualified Code(s): M51.362 - Other intervertebral disc degeneration, lumbar region with discogenic back pain and lower extremity pain (2) Osteoporosis: Code(s): M81.0 - Age-related osteoporosis without current pathological fracture Category: Medical Qualifiers: Osteoporosis type: unspecified Presence of current pathological fracture: unspecified Qualified Code(s): M81.0 - Age-related osteoporosis without current pathological fracture (3) Low back pain: Code(s): M54.50 - Low back pain, unspecified Category: Medical (4) COPD (chronic obstructive pulmonary disease): Comment: PER PULMONARY FUNCTION TEST IN 2010 SHE DID HAVE EVIDENCE OF MILD OBSTRUCTIVE AIRWAY DISORDER. PFT ON HER LAST VISIT CONFIRMED MILD TO MODERATE DEGREE OF OBSTRUCTIVE DISORDER, AND MILD RESTRICTIVE DISORDER DLCO IS MARKEDLY DECREASED, 30, INDICATING SIGNIFICANT V-Q ABNORMALITY. [place] : ADVISED TO CONTINUE BREO-100/25 1 INHALATION DAILY AND SPIRIVA HANDIHALER 1 INHALATION DAILY. Code(s): J44.9 - Chronic obstructive pulmonary disease, unspecified Category: Medical (5) Cough: Code(s): R05.9 - Cough, unspecified Category: Medical Plan 89 year old to establish care Past medical, surgical, social reviewed Low back pain-xr MRI ordered. Referral to pain management Trial tramadol for severe pain Shortness of breath, chronic cough. Stop losartan, start norvasc. Referral to pulm. CXR ordered Orders: Orders MR lumbar spine wo con 04/03/25 M51.369 - Other intervertebral disc degeneration, lumbar region without mention of lumbar back pain or lower extremity pain, M54.50 - Low back pain, unspecified, M81.0 - Age-related osteoporosis without current pathological fracture XR chest 2V 04/03/25 R05.9 - Cough, unspecified XR lumbar spine 2-3V 04/03/25 M54.50 - Low back pain, unspecified Referrals Pain Management Referral M51.369 - Other intervertebral disc degeneration, lumbar region without mention of lumbar back pain or lower extremity pain, M54.50 - Low back pain, unspecified Pulmonology Referral J44.9 - Chronic obstructive pulmonary disease, unspecified, R05.9 - Cough, unspecified Medications: New hydrocodone-homatropine 5-1.5 mg/5 mL 5 mL PO QID PRN 473 mL 0RF cough amlodipine (Norvasc) 10 mg PO DAILY 30 tabs 0RF amlodipine (Norvasc) 10 mg PO DAILY 90 tabs 3RF tramadol 50 mg PO Q8H PRN 21 tabs 0RF pain 7 days metoprolol succinate ER 12.5 mg (1/2 x 25 mg) PO DAILY 45 tabs 3RF amlodipine (Norvasc) 10 mg PO DAILY 90 tabs 3RF Changed From fluticasone furoate-vilanterol 100-25 mcg/dose 1 ea inhalation DAILY J44.9 - Chronic obstructive pulmonary disease, unspecified To Breo Ellipta 100-25 mcg/dose (fluticasone furoate-vilanterol) 1 ea inhalation DAILY 3 ea 3RF NS J44.9 - Chronic obstructive pulmonary disease, unspecified Refilled Breo Ellipta 100-25 mcg/dose (fluticasone furoate-vilanterol) 1 ea inhalation DAILY 3 ea 3RF NS J44.9 - Chronic obstructive pulmonary disease, unspecified metoprolol succinate ER 12.5 mg (1/2 x 25 mg) PO DAILY 45 tabs 3RF
[2025-04-03 13:15] VITALS: BP 128/90; PULSE 65; RESP 18; TEMP 36.5; O2SAT 92; BMI 44.2
== END 2025-04-03 13:42 | disposition home or self-care (01) ==
LOC: HO.HMCHD 12:54
PROVIDERS: PCP Internal Medicine; Visit Provider Internal Medicine
DX: M51.362 Other intervertebral disc degeneration, lumbar region with discogenic back pain and lower extremity pain (principal); M81.0 Age-related osteoporosis without current pathological fracture; M54.50 Low back pain, unspecified; J44.9 Chronic obstructive pulmonary disease, unspecified; R05.9 Cough, unspecified

== ENCOUNTER 2025-04-03 12:53 | Outpatient (REF) | payer MEDICARE, SELFPAY ==
--- NOTE | ~2025-04-03 | XR_ITS ---
CLINICAL HISTORY: PAIN 3 views lumbar spine Comparison: None Findings: No acute fracture. Levoscoliosis. Multilevel degenerative changes of the lumbar spine with osteophytes and narrowing of the intervertebral disc space. Grade 1 anterolisthesis of L4 on L5. Atherosclerosis calcification of the aorta. IMPRESSION: No acute findings. This document has been electronically signed by: Doug Phillips MD on 04/04/2025 15:38:40
--- NOTE | ~2025-04-03 | XR_ITS ---
CLINICAL HISTORY: COPD,COUGH 2 view chest x-ray Comparison: CR/SR - XR CHEST 2V - 11/07/24 09:43 EST Findings: The lungs are clear. Chronic elevation of the right hemidiaphragm. Stable blunting of the right costophrenic angle. Normal size heart. No acute fracture. IMPRESSION: Stable chest radiograph without acute findings. This document has been electronically signed by: Doug Phillips MD on 04/04/2025 15:37:29
== END 2025-04-03 12:54 | disposition home or self-care (01) ==
LOC: HO.XRAY 12:53
PROVIDERS: PCP Internal Medicine; Visit Provider Internal Medicine
DX: M51.362 Other intervertebral disc degeneration, lumbar region with discogenic back pain and lower extremity pain (principal); M54.50 Low back pain, unspecified; R05.9 Cough, unspecified; J44.9 Chronic obstructive pulmonary disease, unspecified
CPT/HCPCS: 71046; 72100; 99202

== ENCOUNTER → 2025-04-03 14:13 | Outpatient (BNV) | payer MEDICARE, SELFPAY | PROVIDERS: PCP Internal Medicine; Visit Provider Nuclear Medicine | DX: M51.369 Other intervertebral disc degeneration, lumbar region without mention of lumbar back pain or lower extremity pain (principal); J44.9 Chronic obstructive pulmonary disease, unspecified | CPT/HCPCS: 71046; 72100 ==

== ENCOUNTER 2025-05-06 13:22 | Outpatient (AMB) | payer MEDICARE, SELFPAY ==
--- NOTE | 2025-05-06 13:29 | MHC.OFFVIS ---
Vital Signs 05/06/25 13:32 05/06/25 14:03 Height 4 ft 9.09 in Weight 105 lb BMI 22.6 BP 220/115 H 160/80 H Blood Pressure Location Rt brachial Rt brachial Position Sitting Sitting Pulse 64 Pulse Source Pulse Oximeter Pulse Oximetry (%) 91 L Oxygen Delivery Method Room Air Comment bp recheck done manually Intake Visit Reasons: Low back pain, unspecified Allergies No Known Allergies Allergy (Mild, Verified 04/03/25 13:08) N/A HPI Comments Details: The patient is a very pleasant 89-year-old female presenting with chronic back pain. The back pain has been present for years and recently exacerbated, described as stabbing, tight, and sharp, without radiation to the legs. The pain is most severe with movement, bending, standing, and walking. The patient has a history of osteoporosis, scoliosis, and spondylolisthesis at L4-L5, contributing to her chronic back pain. She has tried physical therapy in the past, but the current pain level prevents her from engaging in exercises or prolonged walking or standing. Previous medications like tramadol worsened her condition, causing increased tightness in the back. The patient has a history of lung cancer surgery in 2010 and is currently managed for COPD, using oxygen only when walking long distances. She denies any current symptoms of chest pain, headache, or dizziness. Patient presented with elevated BP readings today, but reports she feel fine and declined to go to ER for evaluation. Manual recheck at the end of visit showed improved BP reading. The patient also reports h/o osteoarthritis in her right big toe, which required surgery with a pin insertion. She does not use a cane or walker regularly but has them available at home. - Onset: Present for years, recently exacerbated - Quality: Stabbing, tight, sharp, throbbing, hurting, aching, exhausting, tight, squeezing - Location: Back, without radiation to legs - Exacerbating factors: Movement, bending, standing, walking - Relieving factors: None, mild temporary relief with rest and activity modifications - Interference: Prevents exercise, causes unsteadiness - Affect: Pain causes unsteadiness and potential falls - Analgesia: Current medications include Tylenol; tramadol worsened condition - Adverse Effects: Tramadol caused increased back tightness - Activities of Daily Living: Pain prevents exercise and causes unsteadiness - Aberrant Drug Related Behaviors: None reported Oswestry Low Back Pain Disability Score=26 [facility] Medical History Exercise hypoxemia COPD (chronic obstructive pulmonary disease) Cough in adult patient Family History Father No problems noted. Mother No problems noted. Social History Housing: House Alcohol intake: current Alcohol intake frequency: does not drink Patient Tobacco Use Status: Former Tobacco user service: No Current occupational status: retired Cognitive needs: No Hearing needs: No Vision needs: No Review of Systems Const Details: - Musculoskeletal: Reports chronic back pain, exacerbated by movement - Cardiovascular: Denies chest pain, reports hypertension - Respiratory: Denies dyspnea, reports COPD - Neurological: Reports unsteadiness due to back pain All systems reviewed & are unremarkable except as noted in HPI and below Physical Exam Vital Signs: Last Vital Signs Pulse 64 05/06/25 13:32 BP 160/80 H 05/06/25 14:03 Pulse Ox 91 L 05/06/25 13:32 Oxygen Delivery Method Room Air 05/06/25 13:32 BMI result Body Mass Index 22.6 General: Appears afebrile. Alert and oriented. Mood and affect appropriate. Follows and participates in conversation appropriately. Respiratory effort is unlabored. No cough. Able to transition from sit to stand unassisted. Ambulates with bilaterally normal heel strike and toe off. General: Yes no CVA tenderness Back/Spine/Pelvis Other: Limited lumbar ROM due to pain and stiffness upon forward flexion and extension; increased discomfort while rising from flexed position. Back: no CVA tenderness Cervical Spine: loss of normal cervical lordosis, cervical muscular tenderness, pain with cervical ROM and No Cervical spine tenderness Thoracic/Lumbar Spine: thoracic and lumbar spine normal to inspection, No Thoracic/lumbar spine scar(s), Lasegue's sign positive bilateral and localized, pain with thoraco-lumbar ROM, paraspinal muscle tenderness, thoraco-lumbar ROM limited, No thoracic spinal tenderness and lumbar spinal tenderness (L4-S1) Sacroiliac joints: bilaterally tender to palpation Extrem General: Yes capillary refill normal, Yes no clubbing, cyanosis or edema and Yes no calf tenderness Results Reviewed Results Reviewed: XR lumbar spine 2-3V 04/04/25 CLINICAL HISTORY: PAIN 3 views lumbar spine Comparison: None Findings: No acute fracture. Levoscoliosis. Multilevel degenerative changes of the lumbar spine with osteophytes and narrowing of the intervertebral disc space. Grade 1 anterolisthesis of L4 on L5. Atherosclerosis calcification of the aorta. IMPRESSION: No acute findings. Assessment & Plan Assessment & Plan (1) Low back pain: Code(s): M54.50 - Low back pain, unspecified Category: Medical (2) DDD (degenerative disc disease), lumbar: Code(s): M51.369 - Other intervertebral disc degeneration, lumbar region without mention of lumbar back pain or lower extremity pain Category: Medical Qualifiers: Disc-related pain type: discogenic back pain and lower extremity pain Qualified Code(s): M51.362 - Other intervertebral disc degeneration, lumbar region with discogenic back pain and lower extremity pain (3) Osteoporosis: Code(s): M81.0 - Age-related osteoporosis without current pathological fracture Category: Medical Qualifiers: Osteoporosis type: unspecified Presence of current pathological fracture: unspecified Qualified Code(s): M81.0 - Age-related osteoporosis without current pathological fracture (4) Spondylolisthesis, lumbar region: Code(s): M43.16 - Spondylolisthesis, lumbar region Category: Medical (5) Lumbar radiculopathy: Code(s): M54.16 - Radiculopathy, lumbar region Category: Medical (6) Lumbar spondylosis: Code(s): M47.816 - Spondylosis without myelopathy or radiculopathy, lumbar region Category: Medical Plan The plan includes obtaining an MRI to evaluate slippage at L4-L5 and the presence of bone spurs and arthritis in the spine in the setting of worsening low back pain with limited mobility and instability. A lidocaine patch has been prescribed to manage the back pain, and the patient is encouraged to use a cane to prevent falls due to unsteadiness. The patient is instructed to monitor her blood pressure at home and to seek emergency care if she experiences symptoms such as chest tightness, dizziness, or headache. All questions and concerns have been answered and patient agreed with the plan. Follow-up will occur after the MRI results are available to determine further management steps. Patient was informed and verbally consented to the use of an ambient scribe for clinic note documentation during this visit. Orders: Orders MR lumbar spine wo con Today M43.16 - Spondylolisthesis, lumbar region, M51.362 - Other intervertebral disc degeneration, lumbar region with discogenic back pain and lower extremity pain, M54.16 - Radiculopathy, lumbar region, M54.50 - Low back pain, unspecified Medications: New lidocaine 5% 1 patch topical DAILY 30 ea 0RF pain 30 days M47.816 - Spondylosis without myelopathy or radiculopathy, lumbar region, M54.50 - Low back pain, unspecified Coding Level of Care Code New Pt Level 4 (26663) Diagnoses Low back pain M54.50 Degeneration of intervertebral disc of lumbar region with discogenic back pain and lower extremity pain M51.362 Disc-related pain type: discogenic back pain and lower extremity pain Osteoporosis, unspecified osteoporosis type, unspecified pathological fracture presence M81.0 Osteoporosis type: unspecified Presence of current pathological fracture: unspecified Spondylolisthesis, lumbar region M43.16 Lumbar radiculopathy M54.16 Lumbar spondylosis M47.816
[2025-05-06 13:32] VITALS: BP 220/115; PULSE 64; O2SAT 91; BMI 22.6
[2025-05-06 14:03] VITALS: BP 160/80
--- OUTSIDE RECORDS SUMMARY | 2025-05-06 15:21 | XMS_ITS | Patient Health Record ---
Author Organization Kyle Lechuga III, MD Address [address] [place] [address] Care Team Providers Care Mortgage Loan Officer Name Role Phone Júnior Sunshine MD Primary Care Provider Kyle Gomes Unavailable [phone] Allergies No Known Allergies Reason For Referral [...] Problem Status W/U Status Risk Notes Problem 8697459 Former smoker (Z87.891) Active confirmed She is highly motivated not to smoke. She has a plan to prevent relapse in times of stress and illness. Problem 55061610 Hypertension (I10) Active confirmed Her blood press ure stable at this time and no change in her regimen is necessary. Problem 20196378 COPD (chronic obstructive pulmonary disease) (J44.9) Active confirmed Her COPD is stable and she is breathing room air comfortably. No change in her regimen was necessary. Problem 43626711 Colonic polyp (K63.5) Active confirmed Problem 482837156 Osteoarthritis (M19.90) Active confirmed Problem 939429058 Barretts esophagus (K22.70) Active confirmed I have strongly recommended that she see a animal humane agent supervisor periodically for endoscopy. She has agreed to do so. Problem 957814597 Adenocarcinoma of lung (C34.90) Active confirmed There is cu rrently no sign of recurrent disease and she is comfortable breathing room air. He is medically stable only be followed annually. Problem 74583642 Pleural effusion on right (J90) Active confirmed [...] End Date MEDICARE NGS [address] [place] [address] [id number] Billie Rangel Self - patient is the insured [facility] [address] [place] [address] [phone] [id number] Billie Rangel Self - patient is the insured Medical (General) History Medical History History ICD Code copd hypertension [id number] osteoarthritis dysfunctional uterine bleeding adenocarcinoma of the lung, right lower lobe,07/2013 tubular adenomas of the colon Rojas's esophagus Surgical History Surgery Date(Month/Year) hysterectomy 1985 right first toe surgery 1998 left knee replacement 2000 colonoscopy, Dr. Kyle Bhardwaj right lower lobectomy, adenocarcinoma of lung 07/2013
== END 2025-05-06 14:07 | disposition home or self-care (01) ==
PROVIDERS: PCP Internal Medicine; Visit Provider Nurse Practitioner Family
DX: M54.50 Low back pain, unspecified (principal); M51.362 Other intervertebral disc degeneration, lumbar region with discogenic back pain and lower extremity pain; M81.0 Age-related osteoporosis without current pathological fracture; M43.16 Spondylolisthesis, lumbar region; M54.16 Radiculopathy, lumbar region; M47.816 Spondylosis without myelopathy or radiculopathy, lumbar region
CPT/HCPCS: 99204

== ENCOUNTER → 2025-05-06 13:22 | Outpatient (BNVA) | payer MEDICARE, SELFPAY | PROVIDERS: PCP Internal Medicine; Visit Provider Nurse Practitioner Family | DX: M47.816 Spondylosis without myelopathy or radiculopathy, lumbar region (principal); M43.16 Spondylolisthesis, lumbar region; M81.0 Age-related osteoporosis without current pathological fracture; M51.362 Other intervertebral disc degeneration, lumbar region with discogenic back pain and lower extremity pain; M54.50 Low back pain, unspecified | CPT/HCPCS: 99202 ==

== ENCOUNTER 2025-05-08 14:34 | Outpatient (AMB) | payer MEDICARE, SELFPAY ==
[2025-05-08 14:48] VITALS: BP 130/72; TEMP 36.4; BMI 22.4
--- NOTE | 2025-05-08 14:48 | MHC.PC.OV ---
Vital Signs 05/08/25 14:48 Height 4 ft 9.9 in Weight 107 lb BMI 22.4 BP 130/72 Blood Pressure Location Rt brachial Position Sitting Temp 97.5 F Temp Source Axillary Intake Visit Reasons: 1 Month F/U Derrick Builder Required: No Accompanied by: Self / Same As Patient Allergies No Known Allergies Allergy (Mild, Verified 05/08/25 14:49) N/A Tobacco use date assessed: 05/08/25 Fall risk assessment: No Falls in past year Last assessed Fall Risk: 05/08/25 Dental Screening Dental Screen Date: 05/08/25 Did you have a dental visit in the last 12 months?: No Did you have a dental problem in the last 6 months where you did not have access to dental care?: No HPI HPI Comments History of Present Illness Details The patient is a 89 year old female with a past medical history of hypertension, GERD, barretts, COPD, SAYDA, lung cancer, back pain presenting for follow up. Last seen by pcp in Oct. Low back pain with pain across the pelvis at that time. Xray was ordered. No fracture was identified. Still having quite severe low back pain, pelvic pain. She did not tolerate the tramadol that was ordered. CV: On metoprolol-12.5 twice daily, losartan 50mg twice daily. Blood pressure well controlled COPD/SAYDA: on spiriva, breo. SAYDA untreated. Previously followed by pulmonology. Chronic cough, shortness of breath. She has used cough medicine chronically. The robitussin with codeine is not effective as the hydrocodone-homotropine. She could pay for this out of pocket. She has work up pending. ROS see HPI PHYSICAL EXAM: GENERAL: Alert and oriented x 3. NAD EYES: EOMI. Anicteric. HENT: Moist mucous membranes. No scleral icterus. No cervical lymphadenopathy. LUNGS: Clear to auscultation bilaterally. CARDIOVASCULAR: Regular rate and rhythm. No murmur. No JVD. ABDOMEN: Soft, non-tender +bs EXTREMITIES: Decreased strength, plantar flexion right LE SKIN: No rashes or lesions. Warm. NEUROLOGIC: No focal neurological deficits. CN II-XII grossly intact PSYCHIATRIC: Cooperative. Appropriate mood and affect- [facility] Medical History Exercise hypoxemia COPD (chronic obstructive pulmonary disease) Cough in adult patient Family History Father No problems noted. Mother No problems noted. Social History Housing: House Alcohol intake: current Alcohol intake frequency: does not drink Patient Tobacco Use Status: Former Tobacco user e-Cigarette/Vaping Use: Former Use service: No Current occupational status: retired Cognitive needs: No Hearing needs: No Vision needs: No Questionnaire PHQ-9 Over the last 2 weeks, how often have you been bothered by any of the following problems? 1. Little interest or pleasure in doing things: not at all 2. Feeling down, depressed, or hopeless: nearly every day 3. Trouble falling or staying asleep, or sleeping too much: several days 4. Feeling tired or having little energy: several days 5. Poor appetite or overeating: not at all 6. Feeling bad about yourself - or that you are a failure or have let yourself or your family down: not at all 7. Trouble concentrating on things, such as reading the newspaper or watching television: not at all 8. Moving or speaking so slowly that other people could have noticed. Or the opposite - being so fidgety or restless that you have been moving around a lot more than usual: not at all 9. Thoughts that you would be better off or of hurting yourself in some way: not at all Total score: 5 Depression Screening Interpretation: Positive Depression Screening Done: Yes 22258 - PHQ-9 Billing: Yes Source: Developed by Drs. Kyle Lambert, Luz Irene, Acosta Lindsey and colleagues, with an educational zandra from [employer]. Thrive Questionnaire Date Thrive assessed: 05/08/25 I am a: Patient Within the past 12 months, did the food you bought not last and you didn't have the money to get more?: Never true Within the past 12 months, did you worry whether your food would run out before you got money to buy more?: Never true Do you have trouble paying for medicines?: No Do you have trouble getting transportation to medical appointments?: No Do you have trouble paying your heating and electricity bill?: No Do you have trouble taking care of your child, family member or friend?: No Do you have trouble with day-to-day activities such as bathing, preparing meals, shopping, managing finances, etc.?: No Are you currently unemployed and looking for a job?: No Are you interested in more education?: No THRIVE Score: 0 AUDIT C Alcohol Use Questionnaire (AUDIT-C) 1. How often do you have a drink containing alcohol?: Never 3. How often do you have six or more drinks on one occasion?: Never Total Score: 0 AUGUSTUS-7 AMB Questionnaire AUGUSTUS-7 Date AUGUSTUS - 7 assessed: 05/08/25 Feeling nervous, anxious, or on edge: 0 = Not at all Not being able to stop or control worryin = Not at all Worrying too much about different things: 0 = Not at all Trouble relaxin = Not at all Being so restless that it is hard to sit still: 0 = Not at all Becoming easily annoyed or irritable: 0 = Not at all Feeling afraid as if something awful might happen: 0 = Not at all Total AUGUSTUS-7 score (0-4 normal; 5-9 mild; 10-14 moderate; 15-21 severe): 0 Source: Developed by Drs. Kyle Lambert, Luz Irene, Acosta Lindsey and colleagues, with an educational zandra from [employer]. Physical exam (Primary Care) Vital Signs: Last Vital Signs Temp 97.5 F 05/08/25 14:48 BP 130/72 05/08/25 14:48 BMI result Body Mass Index 22.4 Tobacco/Smoking Status: Tobacco use Status Tobacco use date assessed 05/08/25 05/08/25 14:51 Patient Tobacco Use Status Former Tobacco user 05/08/25 14:51 e-Cigarette/Vaping Use Former Use 05/08/25 14:51 PHQ-9: PHQ-9 Score PHQ-9: Total score 5 05/11/25 11:44 Depression Screening Interpretation: Positive Thrive Assessment: Date of Thrive Assessment Date Thrive assessed 05/08/25 05/08/25 14:51 Coding Level of Care Code Est Pt Level 4 (19903) Complex EM visit Add On G2211 Diagnoses Lumbar radiculopathy M54.16 Degeneration of intervertebral disc of lumbar region with discogenic back pain and lower extremity pain M51.362 Disc-related pain type: discogenic back pain and lower extremity pain Osteoporosis, unspecified osteoporosis type, unspecified pathological fracture presence M81.0 Osteoporosis type: unspecified Presence of current pathological fracture: unspecified Chronic cough R05.3 Cough type: chronic Additional Codes PHQ-9 - 41823 - PHQ-9 Billing: Yes ([id number]) Assessment & Plan Assessment & Plan (1) Lumbar radiculopathy: Code(s): M54.16 - Radiculopathy, lumbar region Category: Medical (2) DDD (degenerative disc disease), lumbar: Code(s): M51.369 - Other intervertebral disc degeneration, lumbar region without mention of lumbar back pain or lower extremity pain Category: Medical Qualifiers: Disc-related pain type: discogenic back pain and lower extremity pain Qualified Code(s): M51.362 - Other intervertebral disc degeneration, lumbar region with discogenic back pain and lower extremity pain (3) Osteoporosis: Code(s): M81.0 - Age-related osteoporosis without current pathological fracture Category: Medical Qualifiers: Osteoporosis type: unspecified Presence of current pathological fracture: unspecified Qualified Code(s): M81.0 - Age-related osteoporosis without current pathological fracture (4) Cough: Code(s): R05.9 - Cough, unspecified Category: Medical Qualifiers: Cough type: chronic Qualified Code(s): R05.3 - Chronic cough Plan 89 year old presenting for follow up chronic cough and back pain She is seeing pain management She will start a trial of baclofen Pulmonary work up is pending Medications: New losartan 50 mg PO BID 180 tabs 3RF baclofen 10 mg PO BID 60 tabs 3RF Changed From hydrocodone-homatropine 5-1.5 mg/5 mL 5 mL PO QID PRN 473 mL 0RF cough J44.9 - Chronic obstructive pulmonary disease, unspecified, R05.9 - Cough, unspecified To hydrocodone-homatropine 5-1.5 mg/5 mL Patient may pay out pocket 5 mL PO QID PRN 473 mL 0RF cough J44.9 - Chronic obstructive pulmonary disease, unspecified, R05.9 - Cough, unspecified Refilled hydrocodone-homatropine 5-1.5 mg/5 mL Patient may pay out pocket 5 mL PO QID PRN 600 mL 0RF cough J44.9 - Chronic obstructive pulmonary disease, unspecified, R05.9 - Cough, unspecified Discontinued amlodipine (Norvasc) Discontinued Reason: Doctor's Order 10 mg PO DAILY 30 tabs 0RF
--- OUTSIDE RECORDS SUMMARY | 2025-05-08 17:44 | XMS_ITS | Patient Health Record ---
Author Organization Kyle Lechuga III, MD Address [address] [facility] [place] [address] Care Team Providers Care Incinerator Plant General Supervisor Name Role Phone Júnior Sunshine MD Primary Care Provider Kyle Gomes Unavailable [phone] Allergies No Known Allergies Reason For Referral [...] Problem Status W/U Status Risk Notes Problem 1022509 Former smoker (Z87.891) Active confirmed She is highly motivated not to smoke. She has a plan to prevent relapse in times of stress and illness. Problem 10483221 Hypertension (I10) Active confirmed Her blood press ure stable at this time and no change in her regimen is necessary. Problem 24686743 COPD (chronic obstructive pulmonary disease) (J44.9) Active confirmed Her COPD is stable and she is breathing room air comfortably. No change in her regimen was necessary. Problem 57077059 Colonic polyp (K63.5) Active confirmed Problem 515411902 Osteoarthritis (M19.90) Active confirmed Problem 210306505 Barretts esophagus (K22.70) Active confirmed I have strongly recommended that she see a environmental services floor tech periodically for endoscopy. She has agreed to do so. Problem 123658842 Adenocarcinoma of lung (C34.90) Active confirmed There is cu rrently no sign of recurrent disease and she is comfortable breathing room air. He is medically stable only be followed annually. Problem 34178925 Pleural effusion on right (J90) Active confirmed [...] End Date MEDICARE NGS [address] [place] [address] [phone] [id number] Billie Rangel Self - patient is the insured [facility] [address] [place] [address] [id number] Billie Rangel Self - patient is the insured Medical (General) History Medical History History ICD Code copd hypertension [id number] osteoarthritis dysfunctional uterine bleeding adenocarcinoma of the lung, right lower lobe,07/2013 tubular adenomas of the colon Rojas's esophagus Surgical History Surgery Date(Month/Year) hysterectomy 1985 right first toe surgery 1998 left knee replacement 2000 colonoscopy, Dr. Kyle Bhardwaj right lower lobectomy, adenocarcinoma of lung 07/2013
== END 2025-05-08 15:27 | disposition home or self-care (01) ==
LOC: HO.HMCHD 14:34
PROVIDERS: PCP Internal Medicine; Visit Provider Internal Medicine
DX: M54.16 Radiculopathy, lumbar region (principal); M51.362 Other intervertebral disc degeneration, lumbar region with discogenic back pain and lower extremity pain; M81.0 Age-related osteoporosis without current pathological fracture; R05.3 Chronic cough

== ENCOUNTER → 2025-05-08 14:34 | Outpatient (BNVA) | payer MEDICARE, SELFPAY | PROVIDERS: PCP Internal Medicine; Visit Provider Internal Medicine | DX: M54.16 Radiculopathy, lumbar region (principal); M81.0 Age-related osteoporosis without current pathological fracture; M51.362 Other intervertebral disc degeneration, lumbar region with discogenic back pain and lower extremity pain; R05.3 Chronic cough; K21.9 Gastro-esophageal reflux disease without esophagitis; I10 Essential (primary) hypertension; J44.9 Chronic obstructive pulmonary disease, unspecified; G47.33 Obstructive sleep apnea (adult) (pediatric); Z13.31 Encounter for screening for depression | CPT/HCPCS: 96127; 99212 ==

== ENCOUNTER 2025-05-27 15:01 | Inpatient (IN) | payer MEDICARE, SELFPAY ==
[2025-05-27] VITALS (7 sets, daily range): BP systolic 135–232; BP diastolic 56–108; PULSE 53–95; RESP 14–22; TEMP 36.6–36.7; O2SAT 95–99; BMI 24.9
--- NOTE | ~2025-05-27 | CT_ITS ---
EXAMINATION: CT HEAD WITHOUT CONTRAST CLINICAL INFORMATION: Altered mental status COMPARISON: April 25, 2023 TECHNIQUE: Contiguous axial imaging was performed from the skull base to vertex without intravenous administration of contrast. This CT examination was performed using dose optimization techniques as appropriate, variously including the following: *Automated exposure control *Adjustment of mA and/or kV according to patient size (this includes techniques or standardized protocols for targeted exams where dose is matched to indication/reason for exam; i.e. extremities or head) *Use of iterative reconstruction technique DLP: 628 mGY*cm FINDINGS: There is no acute ischemic change. There is no intracranial hemorrhage. There is no mass-effect or midline shift. There is mild generalized atrophy. Basal cisterns and ventricles are within normal limits for age/cerebral volume. Orbits are symmetrical and unremarkable. Paranasal sinuses and mastoid air cells are pneumatized. There are no bony abnormalities. CT/CT head/brain wo IV con IMPRESSION: No acute intracranial abnormality. Electronically signed by: Uri Michaels MD 05/28/2025 05:09 PM EDT
--- NOTE | ~2025-05-27 | US_ITS ---
EXAMINATION: US TRIPLEX LOWER EXTREMITY, BILATERAL CLINICAL INFORMATION: Edema and pain, lower extremities. COMPARISON: None available. TECHNIQUE: Color-flow triplex imaging with spectral analysis and compression Doppler were performed on the bilateral lower extremities. FINDINGS: Respiratory variation, normal compression and augmented flow are present throughout the interrogated common femoral vein, superficial femoral vein, profunda femoral vein, popliteal vein and midcalf peroneal and posterior tibial venous segments, bilaterally. There is no Vigil's cyst. US/US venous duplex LE BI IMPRESSION: No acute deep venous thrombosis interrogated veins, bilateral lower extremities. Negative for DVT. Electronically signed by: Enoch Hoover MD 05/28/2025 12:20 PM EDT
--- NOTE | ~2025-05-27 | CT_ITS ---
EXAMINATION: CT CHEST WITHOUT IV CONTRAST INDICATION: copd, /pna COMPARISON: There are no prior studies available for comparison. TECHNIQUE: Helical CT scan of the chest was performed without intravenous contrast. Coronal and sagittal reformatted images were generated and reviewed. This CT exam was performed with one or more of the following dose reduction techniques: automated exposure control, adjustment of the mA and/or kV according to patient size, use of iterative reconstruction technique. DLP: 97 mGy-cm CHEST: THYROID: The thyroid is unremarkable. LUNGS: There are mild emphysematous changes. Postsurgical changes are again noted on the right. There is a new irregular spiculated nodule in the right upper lung zone measuring 11 x 6 x 11 mm (series 4 image 55 and series 6 image 58). There are are additional punctate nodules at the lung apices (series 4, images 20 and 36). MEDIASTINUM: There is no mediastinal lymphadenopathy. BERNARDA: Evaluation of the hilar regions is limited by lack of intravenous contrast material. CARDIOVASCULATURE: The heart is enlarged. There is no pericardial effusion. The thoracic aorta demonstrates marked atherosclerotic calcification, but is normal in caliber. DEGREE OF CORONARY CALCIFICATION: severe PLEURA: There are trace bilateral pleural effusions. No pneumothorax. MAIN AIRWAYS: The mainstem bronchi and proximal branches are patent. AXILLA: There is no axillary lymphadenopathy. BONES AND SOFT TISSUES: Unremarkable UPPER ABDOMEN: The visualized portions of the liver, spleen, and adrenals have an unremarkable unenhanced appearance. CT/CT chest wo IV con IMPRESSION: Postsurgical changes on the right. New irregular spiculated nodule in the right upper lobe measuring 11 x 6 x 11 mm. Findings are suspicious for neoplasm, especially given the patient's history of prior lung cancer. Surgical consultation is recommended. Short-term follow-up chest CT versus PET/CT scan is also recommended. Findings were communicated to Harsha Mascorro MD by secure text message on 05/29/2025 at 8:49 AM. Electronically signed by: Kyle Medina MD 05/29/2025 08:51 AM EDT
--- NOTE | ~2025-05-27 | XR_ITS ---
EXAMINATION: XR CHEST 1 VIEW HISTORY: sob/hypoxic COMPARISON: Comparison is made with the prior examination dated 04/03/2025. FINDINGS: A single AP portable view of the chest performed at 7:42 PM is submitted. Again seen is blunting of the right costophrenic angles consistent with pleural thickening. The lungs are clear. There is no pleural effusion, pneumothorax, or pulmonary vascular congestion. The heart remains enlarged. The aorta is calcified. The bones are intact. XR/XR chest 1V IMPRESSION: Cardiomegaly. No acute cardiopulmonary abnormality. Electronically signed by: Kyle Medina MD 05/28/2025 08:04 AM EDT
--- NOTE | 2025-05-27 15:33 | PC.NURSE ---
Patient is a 89 year old female with a past medical history of hypertension, GERD, barretts, COPD, SAYDA, lung cancer, back pain who presents to the ED from home via EMS with FTT per EMS. c/o decreased PO intake, weakness and sob. Patient placed on threat monitoring analyst upon arrival and noted to be extremely hypertensive and hypoxic with a pox in the 70's which resolved with o2 therapy and now is in the high 90's. Lungs clear but diminished L>R. Respirations even and non-labored at rest but extremely dyspneic upon exertion. Abdomen flat, soft, non-tender with positive bowel sounds. Positive pedal pulses with LE edema noted.
--- OUTSIDE RECORDS SUMMARY | 2025-05-27 16:51 | XMS_ITS | Patient Health Record ---
Author Organization Kyle Lechuga III, MD Address [address] [facility] [address] Care Team Providers Care Health And Physical Education Teacher Name Role Phone Júnior Sunshine MD Primary Care Provider Kyle Gomes Unavailable [phone] Allergies No Known Allergies Reason For Referral [...] Problem Status W/U Status Risk Notes Problem 3535035 Former smoker (Z87.891) Active confirmed She is highly motivated not to smoke. She has a plan to prevent relapse in times of stress and illness. Problem 30455135 Hypertension (I10) Active confirmed Her blood press ure stable at this time and no change in her regimen is necessary. Problem 23193859 COPD (chronic obstructive pulmonary disease) (J44.9) Active confirmed Her COPD is stable and she is breathing room air comfortably. No change in her regimen was necessary. Problem 54907501 Colonic polyp (K63.5) Active confirmed Problem 928958328 Osteoarthritis (M19.90) Active confirmed Problem 254179480 Barretts esophagus (K22.70) Active confirmed I have strongly recommended that she see a parking lot spotter periodically for endoscopy. She has agreed to do so. Problem 468182754 Adenocarcinoma of lung (C34.90) Active confirmed There is cu rrently no sign of recurrent disease and she is comfortable breathing room air. He is medically stable only be followed annually. 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 Kyle Bhardwaj right lower lobectomy, adenocarcinoma of lung 07/2013
--- OUTSIDE RECORDS SUMMARY | 2025-05-27 16:51 | XMS_ITS | Patient Health Record ---
Author Organization [facility] Address [address] [place] [address] Care Team Providers Care Electrotype Caster Name Role Phone Lashae Kyle Unavailable [phone] Reason For Referral No Information Plan Of Treatment No Information
[2025-05-27 17:40] LABS: MANUAL DIFF FLAG NO
[2025-05-27 17:50] LABS: Hematocrit 32.6 % (37.0-47.0); Hemoglobin 11.0 g/dl (12.0-16.0); Imm Gran Abs Auto 0.05 X10*3/uL (0.00-0.03); Imm Gran Pct Auto 0.7 % (0.0-0.4); Lymphocytes Absolute Auto 1.3 X10*3/uL (1.2-4.9); Mean Corpuscular HGB Conc 33.7 g/dl (31.0-35.0); Mean Corpuscular Hemoglobin 27.6 pg (27.0-33.0); Mean Corpuscular Volume 81.7 fL (80.0-98.0); NRBC Abs Auto 0.000 X10*3/uL (0.0-0.012); NRBC Pct Auto 0.0 /100WBC (0.0-0.2); Platelet Count 166 X10*3/uL (160-400); Red Blood Count 3.99 X10*6/uL (4.20-5.50); White Blood Count 7.4 X10*3/uL (4.8-10.8)
[2025-05-27 17:57] LABS: Alanine Aminotransferase 31 U/L (0-31); Albumin Level 3.7 g/dL (3.5-5.0); Alkaline Phosphatase 61 U/L (39-117); Anion Gap 11 (12-20); Aspartate Amino Transferase 30 U/L (5-31); Blood Urea Nitrogen 18 mg/dL (9-16); Calcium 8.7 mg/dL (8.4-10.2); Carbon Dioxide 22 mmol/L (22-29); Chloride 99 mmol/L (96-108); Creatinine Clr Calc Pharmacy 32.9; Estimated Glomerular Filt Rate > 60; Potassium 4.9 mmol/L (3.3-5.1); Sodium 127 mmol/L (135-145); Total Protein 6.5 g/dL (6.5-8.0)
[2025-05-27 18:04] LABS: Troponin-I High Sensitivity 9.5 ng/L (<3.5-17.0)
--- NOTE | 2025-05-27 18:46 | ECG_ITS ---
Test Reason : SOB Blood Pressure : */* mmHG Vent. Rate : 63 BPM Atrial Rate : 63 BPM P-R Int : 126 ms QRS Dur : 82 ms QT Int : 422 ms P-R-T Axes : 57 18 -5 degrees QTcB Int : 431 ms Normal sinus rhythm ST & T wave abnormality, consider inferior ischemia Abnormal ECG When compared with ECG of 28-Feb-2017 23:02, T wave inversion now evident in Anterolateral leads Referred By: Khadijah Chase Electronically Signed By: SHRAVAN CUEVAS
[2025-05-27 19:14] LABS: B Type Natriuretic Peptide 2171 pg/mL (<100)
[2025-05-27 19:36] LABS: Resp Syncy Virus RNA Qual PCR NEGATIVE (Negative); SARS COV2 PCR INHOUSE NEGATIVE (Negative)
[2025-05-27 19:40] LABS: VBG HCO3 21 mmol/L (22-26); VBG O2 % Saturation 63.0 %
[2025-05-27 19:40] LABS: Venous Blood Gas Refer to POC result
[2025-05-27] MEDS: Furosemide 40 MG/4 ML VIAL IVPUSH (19:42)
--- NOTE | 2025-05-27 19:42 | ED.GENADULT ---
HPI - General Adult General Chief complaint: Failure to Thrive Stated complaint: WEAK,NAUSEA,SOB/89 RA,EDEMA,DIFF AMB PER EMS Time Seen by Provider: 05/27/25 19:15 Source: patient and EMS Mode of arrival: EMS Limitations: no limitations History of Present Illness ED Provider: Dr. Anila Aguilar HPI narrative: Patient comes to the emergency room via ambulance from home. According to EMS, the son reported that the patient has been having more weakness than usual, shortness of breath with minimal exertion., decreased p.o. intake. Patient's seems weak, states that she has no chest pain but states that if she moves minimally, she gets very short of breath. Patient denies any cardiac history. Related Data Home Medications ?Medication ?Instructions ?Recorded ?Confirmed acetaminophen 650 mg 650 mg PO Q12H 05/06/25 tablet,extended release Previous Rx's ?Medication ?Instructions ?Recorded Breo Ellipta 100 mcg-25 mcg/dose 1 ea inhalation DAILY #3 ea 04/03/25 powder for inhalation (fluticasone furoate-vilanterol) metoprolol succinate 25 mg 12.5 mg (1/2 x 25 mg) PO DAILY #45 04/03/25 tablet,extended release 24 hr tabs codeine 10 mg-guaifenesin 100 mg/5 5 ml PO Q6H PRN flu symptoms #473 04/11/25 mL oral liquid mL lidocaine 5 % topical patch 1 patch topical DAILY pain 30 days 05/06/25 #30 ea baclofen 10 mg tablet 10 mg PO BID #60 tabs 05/08/25 losartan 50 mg tablet 50 mg PO BID #180 tabs 05/08/25 hydrocodone-homatropine 5 mg-1.5 5 ml PO QID PRN cough #600 mL 05/11/25 mg/5 mL oral solution Allergies Allergy/AdvReac Type Severity Reaction Status Date / Time No Known Allergies Allergy Mild N/A Verified 05/27/25 15:21 Review of Systems Review of Systems: Constitutional : No Weight loss, No Fever, No Chills, No Night Sweats, complaining of fatigue and generalized malaise ENT/Mouth : No Hearing loss, No Ear Pain, No Nasal Congestion, No Sinus Pain, No Hoarseness, No sore throat, No Rhinorrhea, No Swallowing Difficulty Eyes: No Eye Pain, No Swelling, No Redness, No Foreign Body, No Discharge, No Vision Changes Cardiovascular : No Chest Pain, complaining of dyspnea and orthopnea Respiratory : No Cough, No Sputum, No Wheezing, No Smoke Exposure, complaining of dyspnea Gastrointestinal : No Nausea, No Vomiting, No Diarrhea, No Constipation, No abdominal Pain, No Hematochezia, No Melena Genitourinary : no irregular bleeding, No Dysuria, No Urinary Frequency, No Hematuria, No Urinary Incontinence, No Urgency, No Flank Pain, No Urinary Flow Changes, No Hesitancy Musculoskeletal : No joint pain, No Myalgias, No Joint Swelling Skin : No Skin Lesions, No rash Neuro : No Weakness, No Numbness, No Paresthesias, No Loss of Consciousness, No Dizziness, No Headache Psych : No Anxiety/Panic, No Depression, No SI/HI/AH/VH, No Social Issues, Heme/Lymph: No Bruising, No Bleeding,No Lymphadenopathy Endocrine : No Polyuria, No Polydipsia, No Temperature Intolerance PMFSH Past Medical History Medical History Exercise hypoxemia COPD (chronic obstructive pulmonary disease) Cough in adult patient Family History Family History Father No problems noted. Mother No problems noted. Social History Social History Housing: House Alcohol intake: current Alcohol intake frequency: does not drink Patient Tobacco Use Status: Former Tobacco user Smoked in Last 30 Days: No e-Cigarette/Vaping Use: Former Use Use of substances other than those prescribed or required for medical reasons: No Advance Directives: No Advance Directives Information Provided: No service: No Current occupational status: retired Cognitive needs: No Hearing needs: No Vision needs: No Physical Exam ED Vital Signs: Vital Signs - 24 hr 05/27/25 15:19 05/27/25 15:23 05/27/25 15:23 Temperature 98.0 F Pulse Rate 56 57 Respiratory Rate 20 20 Blood Pressure 205/88 H 232/97 H Pulse Oximetry 96 96 97 Oxygen Delivery Method Nasal Cannula Nasal Cannula Nasal Cannula Oxygen Flow Rate 4 05/27/25 17:15 05/27/25 19:29 Temperature 97.8 F Pulse Rate 95 63 Respiratory Rate 19 14 Blood Pressure 209/88 H 135/56 L Pulse Oximetry 95 97 Oxygen Delivery Method Nasal Cannula Oxymask Oxygen Flow Rate 2 6 BMI result Body Mass Index 24.9 Const Other: Appearance: Alert. Patient looks very weak Eyes: Pupils equal, round and reactive to light. ENT: Pharynx normal. Neck: Normal inspection. Neck supple. No lymph nodes noted. No crepitus CVS: Normal heart rate and rhythm. Pulses normal. Normal S1 and S2 Respiratory: Patient is not O2 dependent. Patient's oxygen saturation drops to 84% with minimal exertion. Abdomen: Soft and nontender. No rigidity. No distention. Skin: Skin warm and dry. Normal skin color. Normal skin turgor. Extremities: +2 pitting edema bilaterally No Lacerations. No Rash Neuro: Oriented X 3. No motor deficit. No sensory deficit. Moving all extremities. No slurred speech. CN 2 through 12 grossly intact Psych: calm, cooperative, normal affect Medications Administered Discontinued Medications Generic Name Dose Route Start Last Admin Trade Name Wandy PRN Reason Stop Dose Admin Acetaminophen 650 mg 05/27/25 19:19 05/27/25 19:43 Acetaminophen 325 Mg Tablet PO 05/27/25 19:20 650 mg ONCE ONE Administration Diazepam 1 mg 05/27/25 20:36 05/27/25 20:44 Diazepam 2 Mg Tablet PO 05/27/25 20:37 1 mg ONCE ONE Administration Furosemide 40 mg 05/27/25 19:37 05/27/25 19:42 Furosemide 40 Mg/4 Ml Vial IVPUSH 05/27/25 19:38 40 mg STAT STA Administration Protocol Medical Decision Making Medical Decision Making [facility] Narrative: Patient's oxygen saturation dropped to the low 80s with very minimal exertion while sitting in bed. Patient's seems to have history of this per her past medical history in her records. Seems that patient does not use oxygen although she is supposed to. Patient has +2 pitting edema in her lower extremities. The seems to be new. My interpretation of labs: Patient's hematology shows a hemoglobin of 11 which is a bit lower than patient's baseline. Blood gases did not show any acute abnormality, chemistry shows a sodium of 127 which is new for the patient, normal LFTs, BNP is 2171 which is new for the patient. According to her, she does not have history of CHF. Serology negative for influenza RSV and COVID Patient is now on an OxyMask at 6 L, saturating 97% on room air. Patient's seems very weak. Patient's blood pressure now 135/56. On arrival it was 205/88 which dropped with no significant intervention. At this time, patient receiving Lasix. Pending: Chest x-ray -my interpretation, cardiomegaly, possible congestion. Radiology report pending Patient likely has new onset CHF. I discussed the above-mentioned with Dr. Mohr, patient being admitted Differential Diagnosis Differential Diagnoses: The differential diagnosis associated with the presentation includes (CHF exacerbation, failure to thrive, viral illness) Admission/Observation Consideration of admission/observation: Escalation of care including admission/observation considered Consult Healthcare Provider Management of the patient was discussed with: Hospitalist Lab Data MDM Lab Attestation statement: I reviewed the patient's lab results. 05/27/25 17:37 05/27/25 17:37 Labs: Lab Results 05/27/25 05/27/25 05/27/25 Range/Units 17:37 18:51 19:37 WBC 7.4 (4.8-10.8) X10*3/uL RBC 3.99 L D (4.20-5.50) X10*6/uL Hgb 11.0 L D (12.0-16.0) g/dl Hct 32.6 L D (37.0-47.0) % MCV 81.7 (80.0-98.0) fL MCH 27.6 (27.0-33.0) pg MCHC 33.7 (31.0-35.0) g/dl RDW 17.2 H (11.0-16.0) % Plt Count 166 D (160-400) X10*3/uL MPV 10.0 (9.4-12.3) fL Immature Gran % (Auto) 0.7 H (0.0-0.4) % Neut % (Auto) 62.7 (45-73) % Lymph % (Auto) 17.1 L (20-40) % Charles % (Auto) 17.6 H (2-11) % Eos % (Auto) 1.1 (0-4) % Baso % (Auto) 0.8 (0-2) % Lymph # (Auto) 1.3 (1.2-4.9) X10*3/uL Charles # (Auto) 1.3 H (0.1-1.2) X10*3/uL Eos # (Auto) 0.1 (0.0-0.4) X10*3/uL Baso # (Auto) 0.1 (0.0-0.2) X10*3/uL Abs Immat Gran (auto) 0.05 H (0.00-0.03) X10*3/uL Absolute Neuts (auto) 4.7 (2.0-8.3) x10*3/uL Absolute Nucleated RBC 0.000 (0.0-0.012) X10*3/uL Nucleated RBC % (auto) 0.0 (0.0-0.2) /100WBC VBG pH 7.35 (7.32-7.43) VBG pCO2 36 mmHg VBG pO2 43 mmHg VBG HCO3 21 L (22-26) mmol/L VBG O2 Saturation 63.0 % VBG Base Excess -3.9 mmol/L Sodium 127 L (135-145) mmol/L Potassium 4.9 (3.3-5.1) mmol/L Chloride 99 (96-108) mmol/L Carbon Dioxide 22 (22-29) mmol/L Anion Gap 11 L (12-20) BUN 18 H (9-16) mg/dL Creatinine 0.82 (0.5-1.4) mg/dL Estim Creat Clear Calc 32.9 Estimated GFR > 60 Random Glucose 98 (60-115) mg/dL Calcium 8.7 D (8.4-10.2) mg/dL Total Bilirubin 0.9 (0.0-1.0) mg/dL AST 30 (5-31) U/L ALT 31 (0-31) U/L Alkaline Phosphatase 61 (39-117) U/L Troponin I High Sens 9.5 (<3.5-17.0) ng/L B-Natriuretic Peptide 2171 H (<100) pg/mL Total Protein 6.5 (6.5-8.0) g/dL Albumin 3.7 (3.5-5.0) g/dL Influenza Type A (PCR) NEGATIVE (Negative) Influenza Type B (PCR) NEGATIVE (Negative) RSV RNA Qual (PCR) NEGATIVE (Negative) SARS-CoV-2 RNA (RT-PCR) NEGATIVE (Negative) Independent Interpretation I performed an independent interpretation of an: EKG and Plain X-Ray Critical Care Time Critical Care Time Critical Care Time: Yes Total Critical Care Time: 60 Attestation: I have personally provided critical care time. Time includes review of lab data, radiology results, discussion with consultants, and monitoring for potential decompensation. Intervention performed as documented. Discharge Plan Discharge Clinical Impression: New onset of congestive heart failure, Acute hyponatremia Patient Disposition: Admitted As Inpatient Print Language: Ecuadorean
--- NOTE | 2025-05-27 19:54 | PC.NURSE ---
upon assuming care pt was 93% on 2.5L NC. axox4, states takes 650mg Tylenol for chronic neck pain. pt was evaluated by MD Aguilar, requested pt be placed on oxymask, 97% on 6L. 2nd iv established. vbg ordered per verbal md order and xr changed to 1V. pt took tylenol cut in half with water, nad. iv lasix given per jan. pt is on purewick to monitor output/incontinence. denies further complaints. call gonzales within reach.
--- NOTE | 2025-05-27 20:36 | PC.NURSE ---
pt found to be groaning and restless, reports ble pain, has been intermittent since ble edema per pt. legs elevated and warm blanket placed on them pt denies improvement. MD Aguilar made aware states will order po meds.
--- NOTE | 2025-05-27 21:01 | P.HPHOSP_ITS ---
History of Present Illness Date of Service: 05/27/25 Chief Complaint: Dyspnea This has a 89-year-old female with pertinent history of chronic hypoxemic respiratory failure due to COPD on baseline supplemental oxygen while ambulation, lumbar radiculopathy, hypertension who presents to the emergency department for evaluation of dyspnea. Patient states her symptoms started about a week prior to presentation. She has been having dyspnea which has been progressive and worse with exertion. Also admits orthopnea. Patient complains of malaise and easy fatigability. She has been weak overall. Does use supplemental oxygen 2 L while ambulation for COPD. No wheezing or cough. No fever or chills. She denies chest pain, palpitations, abdominal pain, changes in urinary or bowel habits. In the emergency department, BNP found to be elevated and patient requiring 6 L supplemental oxygen. Review of Systems 2 Constitutional: Constitutional: Reports fatigue, Reports lethargy, Reports malaise and Reports weakness Cardiovascular: Cardiovascular: Reports dyspnea on exertion and Reports orthopnea Respiratory: Respiratory: Reports dyspnea on exertion Gastrointestinal: Gastrointestinal: Reports no additional gastrointestinal complaints Genitourinary: Genitourinary: Reports no additional female genitourinary complaints Neurologic: Reports weakness Endocrine: Endocrine: Reports fatigue [facility] Medical History Exercise hypoxemia COPD (chronic obstructive pulmonary disease) Cough in adult patient Family History Father No problems noted. Mother No problems noted. Social History Housing: House Alcohol intake: current Alcohol intake frequency: does not drink Patient Tobacco Use Status: Former Tobacco user Smoked in Last 30 Days: No e-Cigarette/Vaping Use: Former Use Use of substances other than those prescribed or required for medical reasons: No Advance Directives: No Advance Directives Information Provided: No service: No Current occupational status: retired Cognitive needs: No Hearing needs: No Vision needs: No Meds Allergies Allergy/AdvReac Type Severity Reaction Status Date / Time No Known Allergies Allergy Mild N/A Verified 05/27/25 15:21 Home Medications ?Medication ?Instructions ?Recorded ?Confirmed ?Last Taken ?Type acetaminophen 650 mg 650 mg PO TID 05/06/2505/2705/27/25 History tablet,extended release metoprolol succinate 25 mg 12.5 mg PO BID 05/27/2505/27/25 History tablet,extended release 24 hr omeprazole 20 mg capsule,delayed 20 mg PO DAILY@0630 0 05/27/25 05/27/25 05/27/25 History release Physical Exam 2 Vital Signs and Narrative: Vital Signs: Last Vital Signs Temp 97.8 F 05/27/25 17:15 Pulse 63 05/27/25 19:29 Resp 14 05/27/25 19:29 BP 135/56 L 05/27/25 19:29 Pulse Ox 97 05/27/25 19:29 O2 Del Method Oxymask 05/27/25 19:29 O2 Flow Rate 6 05/27/25 19:29 Oxygen Flow Rate 4 05/27/25 15:23 BMI result Body Mass Index 24.9 Elderly female lying in bed in mild distress on supplemental oxygen Neck supple Regular rate and rhythm, S1-S2 heard Bilateral crackles appreciated Abdomen soft nontender, no guarding, no rigidity Patient is awake, alert and oriented x3 ; no focal motor deficit Psych: Normal mood Bilateral pitting edema Results Labs 05/27/25 17:37 05/27/25 17:37 Labs: Laboratory Results - last 24 hr 05/27/25 05/27/25 05/27/25 17:37 18:51 19:37 MCV 81.7 MCH 27.6 MCHC 33.7 RDW 17.2 H Plt Count 166 D MPV 10.0 Immature Gran % (Auto) 0.7 H Neut % (Auto) 62.7 Lymph % (Auto) 17.1 L [place] % (Auto) 17.6 H Eos % (Auto) 1.1 Baso % (Auto) 0.8 Lymph # (Auto) 1.3 [place] # (Auto) 1.3 H Eos # (Auto) 0.1 Baso # (Auto) 0.1 Abs Immat Gran (auto) 0.05 H Absolute Neuts (auto) 4.7 Absolute Nucleated RBC 0.000 Nucleated RBC % (auto) 0.0 VBG pH 7.35 VBG pCO2 36 VBG pO2 43 VBG HCO3 21 L VBG O2 Saturation 63.0 VBG Base Excess -3.9 Anion Gap 11 L Estim Creat Clear Calc 32.9 Estimated GFR > 60 Random Glucose 98 Calcium 8.7 D Total Bilirubin 0.9 AST 30 ALT 31 Alkaline Phosphatase 61 B-Natriuretic Peptide 2171 H Total Protein 6.5 Albumin 3.7 Influenza Type A (PCR) NEGATIVE Influenza Type B (PCR) NEGATIVE RSV RNA Qual (PCR) NEGATIVE SARS-CoV-2 RNA (RT-PCR) NEGATIVE Assessment and Plan (1) New onset of congestive heart failure: Status: Acute Plan This has a 89-year-old female with pertinent history of chronic hypoxemic respiratory failure due to COPD on baseline supplemental oxygen while ambulation, lumbar radiculopathy, hypertension who presents to the emergency department for evaluation of dyspnea. #. Acute hypoxemic respiratory failure due to acute congestive heart failure, unknown EF: Will admit patient with IV diuresis. Strict I's and O's. Low-salt diet. Obtaining transthoracic echocardiogram. Consulted Cardiology, appreciate assistance. Patient on beta-rasheeda and ARB #. Hyponatremia, hypervolemic: Monitor with IV diuresis #. Hypertension: Continue home antihypertensives #. Lumbar radiculopathy: Continue p.o. analgesics. Will need PT eval. #. Chronic hypoxemic respiratory failure due to COPD: States only uses baseline supplemental oxygen 2 L while ambulation. Continue home inhaler Med rec pending DVT prophylaxis: Lovenox DNR/DNI. Discussed with patient at bedside. Tried to call the son but no answer Admit as inpatient and will require two night minimum hospital stay for supplemental oxygen, IV diuresis (as above), which is not possible in a lesser acute setting. Quality Stroke Does the patient have a stroke diagnosis?: No VTE Prior VTE?: No VTE Risk Level:: Medical - moderate - high VTE Device Contraindication: Treatment Not Indicated VTE Drug Contraindication: N/A - Med Ordered
--- NOTE | 2025-05-27 21:37 | PHA.MEDREC ---
Addendum entered by Doug Francisco [facility] 05/27/25 21:48: MED REC CHECKED BY [facility] Original Note: Pharmacy Consult ? Medication Reconciliation Pharmacy has completed the medication reconciliation. Spoke to patient to confirm med list. patient was able to name all of her medications. Patient states she is not taking Amlodipine 10 mg, Baclofen 10 mg, Codein 10-Guaifenesin 100mg/5m, and Lidocaine 5 % patch. Patient states she takes Metoprolol Succ ER 12.5 mg (1/2 of 25mg) BID, however claims has Metoprolol Succ 12.5 mg ( 1/2 of 25 mg) daily. Patient says she had all of her morning medications today.
--- NOTE | 2025-05-27 22:09 | PC.NURSE ---
Addendum entered by Esequiel Antony 05/27/25 22:23: pt had small amount of urine incontinence bladder scan shows 433, pt denies needing to urinate. aware. Original Note: pt reports pain has returned in ble, previously improved with po valium. MD Mohr made aware.
[2025-05-28] VITALS (16 sets, daily range): BP systolic 120–186; BP diastolic 51–68; PULSE 54–90; RESP 16–22; TEMP 36.1–37.1; O2SAT 85–100; BMI 25.3
--- NOTE | 2025-05-28 | ECG_ITS ---
Test Reason : BRADYCARDIA Blood Pressure : */* mmHG Vent. Rate : 60 BPM Atrial Rate : 60 BPM P-R Int : 130 ms QRS Dur : 82 ms QT Int : 436 ms P-R-T Axes : 51 13 154 degrees QTcB Int : 436 ms Normal sinus rhythm Nonspecific ST and T wave abnormality Abnormal ECG When compared with ECG of 27-May-2025 19:03, T wave inversion no longer evident in Inferior leads T wave inversion more evident in Lateral leads Referred By: Jose Mohr Electronically Signed By: SHRAVAN CUEVAS
[2025-05-28] MEDS: 0.9 % Sodium Chloride Flush 3 ML SYRINGE IVFLUSH ×4 (00:35→22:00)
--- NOTE | 2025-05-28 03:30 | PC.NURSE ---
pt began dry heaving and reports sudden onset nausea. reports leg pain returned and groaning d/t pain. HR noted to drop to 40s during this episode. MD made aware. vitals obtained. ekg obtained. for ekg hr return to 60s. PRN zofran given. PRN tylenol given per Onur as wants to avoid iv meds at this time d/t HR. rectal temp obtained and warm blankets given.
--- NOTE | 2025-05-28 04:30 | PC.NURSE ---
pt is now sleeping, resp even and unlabored. bed alarm on. call gonzales within reach.
[2025-05-28 05:07] LABS: MANUAL DIFF FLAG NO
[2025-05-28 05:11] LABS: Hematocrit 31.4 % (37.0-47.0); Hemoglobin 10.2 g/dl (12.0-16.0); Imm Gran Abs Auto 0.04 X10*3/uL (0.00-0.03); Imm Gran Pct Auto 0.5 % (0.0-0.4); Lymphocytes Absolute Auto 1.3 X10*3/uL (1.2-4.9); Mean Corpuscular HGB Conc 32.5 g/dl (31.0-35.0); Mean Corpuscular Hemoglobin 26.9 pg (27.0-33.0); Mean Corpuscular Volume 82.8 fL (80.0-98.0); NRBC Abs Auto 0.000 X10*3/uL (0.0-0.012); NRBC Pct Auto 0.0 /100WBC (0.0-0.2); Platelet Count 173 X10*3/uL (160-400); Red Blood Count 3.79 X10*6/uL (4.20-5.50); White Blood Count 7.5 X10*3/uL (4.8-10.8)
[2025-05-28 05:25] LABS: Anion Gap 10 (12-20); Blood Urea Nitrogen 19 mg/dL (9-16); Calcium 8.3 mg/dL (8.4-10.2); Carbon Dioxide 22 mmol/L (22-29); Chloride 100 mmol/L (96-108); Creatinine Clr Calc Pharmacy 24.3; Estimated Glomerular Filt Rate 46; Potassium 4.0 mmol/L (3.3-5.1); Sodium 128 mmol/L (135-145)
--- NOTE | 2025-05-28 05:38 | PC.NURSE ---
pt was due to void approx 0500. has not had UO. obtaining bladder scan now.
--- NOTE | 2025-05-28 07:00 | CA_ITS ---
Transthoracic Echocardiogram Patient (Last, First, Middle): Billie Rangel G Gender: Female Date of : 1935 Age: 89 Procedure Date: 05/28/2025 Procedure Type: Transthoracic Echocardiogram Location: S3E Height: 144.78 cm Weight: 52.16 kg BSA: 1.42 m2 Heart Rate: 52 bpm BP: 120 / 54 mmHg Site Technician: SB Referring MD: Jose Mohr MD Symptoms: CHF Study Quality: Adequate w contrast ECG Rhythm: Bradycardia Conclusions: - The left ventricular systolic function is hyperdynamic. The visually estimated ejection fraction is >70%. - There is moderate mitral annular calcification. - There is moderate tricuspid valve regurgitation. - The right ventricular systolic pressure is 88 mmHg. Severe pulmonary hypertension is present. Findings Procedure Information Contrast agent, definity, is being given per protocol without apparent complications. Left Ventricle Normal left ventricular cavity size. There is mildly increased left ventricular wall thickness. The left ventricular systolic function is hyperdynamic. The visually estimated ejection fraction is >70%. There is no evidence of regional wall motion abnormalities. Evidence suggests grade I (mild) diastolic dysfunction. Right Ventricle Mildly increased right ventricular cavity size. There is normal right ventricular systolic function. Atria The left atrium is moderately dilated. The right atrium is severely dilated. Aortic Valve There is a normal trileaflet aortic valve. There is mild calcification of the aortic valve. There is no aortic valve stenosis. There is no aortic valve regurgitation. Mitral Valve There is moderate mitral annular calcification. There is mild mitral valve regurgitation. There is no mitral valve stenosis. Pulmonic Valve The pulmonic valve is likely normal. Tricuspid Valve There is moderate tricuspid valve regurgitation. The right ventricular systolic pressure is 88 mmHg. Severe pulmonary hypertension is present. Great Vessels The asc aorta is normal in size. Venous The inferior vena cava is mildly dilated and collapses greater than 50% with inspiration. Pericardium/Pleural There is no evidence of pericardial effusion. Prior Study Comparison Changes noted compared to prior study dated: 12/22/2009. Development of pulmonary hypertension. Measurements 2D Linear Measurements IVSd: 1.23 0.6-0.9/0.6-1.0 cm LVIDd: 4.09 3.9-5.3/4.2-5.9 cm LVIDd Index: 2.88 2.4-3.2/2.2-3.1 cm/m2 LVIDs: 2.82 2.0-3.6 cm LVPWd: 1.11 0.7-1.1 cm LA Diam: 3.90 2.7-3.8/3.0-4.0 cm LAIDs Index: 2.75 1.5-2.3 cm/m2 LV Mass: 205.33 67-162/88-224 g LV Mass Index: 144.60 43-95/49-115 g/m2 LVOT Diam: 1.90 3.0+(-)1.3 cm 2D Systolic Function EF 4C: 72.10 >55% EF 2C: 82.20 >55% EF BiP: 78.60 >55% Mitral Valve MV VTI: 0.42 MV Pk Nacho: 1.29 MV Mn Nacho: 0.64 MV Pk Grad: 7.00 MV Mn Grad: 2.00 MV Pk E: 0.96 MV PK A: 1.26 MV Decel Time: 345.00 E/A: 0.80 E'Lateral: 4.06 E'Medial: 4.00 E/E' Med: 23.90 E/E' Lat: 23.50 PHT: 101.00 MVA PHT: 2.18 MVA Continuity: 1.54 Decel [place] Mix: 2.77 Aortic Valve AoV Pk Nacho: 1.63 AoV Mn Nacho: 1.07 AoV VTI: 0.35 AoV Pk Grad: 11.00 Aov Mn Grad: 5.00 ОЛЬГА Cont.VTI: 1.85 LVOT LVOT Pk Nacho: 0.99 LVOT Mn Nacho: 0.67 LVOT VTI: 0.23 LVOT Pk Grad: 4.00 LVOT Mn Grad: 2.00 LVOT Diam: 1.90 LVOT Area: 2.84 Diastolic Function MV Pk E: 0.96 MV Pk A: 1.26 E/A: 0.80 E'Medial: 4.00 E/E' Med: 23.90 E' Laterial: 4.06 E/E' Lat: 23.50 Right Ventricle TAPSE (mm): 17.10 TVS' Nacho: 12.20 Tricuspid Valve TR Pk Nacho: 4.27 TR Pk Grad: 73.00 RA Press: 15.00 RVSP: 88.00 Great Vessels Aorta Sinus of Valsalva: 3.00 2.0-3.5 cm Ao Asc: 3.30 2.1-3.4 cm Pulmonary Valve PV Pk Nacho: 0.66 Peak PV Grad: 2.00 Updated in Other Vendor System with Status of Final Agustin Cunningham MD electronically signed on 05/28/2025 2:55:32 PM with status of Final
--- NOTE | 2025-05-28 07:26 | P.CNUR_ITS ---
History of Present Illness Consult details Consult date: 05/28/25 Narrative: CC: urinary retention 89-year-old female presents with hyponatremia Baseline chronic hypoxia secondary to COPD on supplemental oxygen Failure to urinate in emergency room Straight catheterization 400 cc Unable to urinate and subsequent Rae catheter placement No prior history of urinary issues Does have generalized weakness. Found to have new onset CHF. Recommend Rae catheter stay for 48 hours during management of hyponatremia. Output may be managed. Start low-dose alpha-rasheeda. May have voiding trial after 48 hours. Doxazosin 0.5 mg p.o. q.h.s. ordered Review of Systems 2 Constitutional: Constitutional: Denies chills and Denies fever(s) Cardiovascular: Cardiovascular: Reports no additional cardiovascular complaints and Denies syncope Respiratory: Respiratory: Denies cough Gastrointestinal: Gastrointestinal: Denies abdominal pain and Denies heartburn Genitourinary: Genitourinary: Reports as per HPI and Denies change in libido Neurologic: Denies syncope Psychiatric: Psychiatric: Denies change in libido Endocrine: Endocrine: Denies change in libido [facility] Past Medical History Medical History Exercise hypoxemia COPD (chronic obstructive pulmonary disease) Cough in adult patient Family History Family History Father No problems noted. Mother No problems noted. Social History Social History Housing: House Alcohol intake: current Alcohol intake frequency: does not drink Patient Tobacco Use Status: Former Tobacco user Smoked in Last 30 Days: No e-Cigarette/Vaping Use: Former Use Use of substances other than those prescribed or required for medical reasons: No Advance Directives: No Advance Directives Information Provided: No service: No Current occupational status: retired Cognitive needs: No Hearing needs: No Vision needs: No Meds Allergies Allergy/AdvReac Type Severity Reaction Status Date / Time No Known Allergies Allergy Mild N/A Verified 05/27/25 15:21 Active Medications: Current Medications Acetaminophen (Acetaminophen 325 Mg Tablet) 650 mg PO Q6H PRN PRN Reason: Pain, Mild 1-3,fever,headache Last Admin: 05/28/25 03:24 Dose: 650 mg Albuterol/Ipratropium (Albuterol/Iprat 2.5/0.5mg 3 Ml Ampul.Neb) 3 ml INHALE Q4H PRN PRN Reason: Shortness of Breath/Wheezing Benzonatate (Benzonatate 100 Mg Capsule) 100 mg PO TID PRN PRN Reason: Cough Calcium Carbonate (Calcium Carbonate 750 Mg Tab.Chew) 750 mg PO Q4H PRN PRN Reason: Heartburn Enoxaparin Sodium (Enoxaparin Sodium 40 Mg/0.4 Ml Syringe) 40 mg SUBCUT Q24H [facility] Last Admin: 05/27/25 22:31 Dose: 40 mg Furosemide (Furosemide 40 Mg/4 Ml Vial) 40 mg IVPUSH DAILY [facility]; Protocol Magnesium Hydroxide (Milk Of Magnesia 30 Ml Oral.Susp) 30 ml PO DAILY PRN PRN Reason: Constipation Melatonin (Melatonin 3 Mg Tablet) 6 mg PO BEDTIME PRN PRN Reason: Insomnia Ondansetron HCl (Ondansetron Hcl 4 Mg/2 Ml Vial) 4 mg IVPUSH Q8H PRN PRN Reason: Nausea and Vomiting Last Admin: 05/28/25 03:14 Dose: 4 mg Sodium Chloride (0.9 % Sodium Chloride Flush 3 Ml Syringe) 3 ml IVFLUSH QSHIFT [facility] Last Admin: 05/28/25 00:35 Dose: 3 ml Home Medications ?Medication ?Instructions ?Recorded ?Confirmed ?Last Taken ?Type acetaminophen 650 mg 650 mg PO TID 05/06/2505/2705/27/25 History tablet,extended release metoprolol succinate 25 mg 12.5 mg PO BID 05/27/2505/27/25 History tablet,extended release 24 hr omeprazole 20 mg capsule,delayed 20 mg PO DAILY@0630 0 05/27/25 05/27/25 05/27/25 History release Physical Exam 2 Vital Signs: Vital Signs: Last Vital Signs Temp 96.9 F 05/28/25 03:35 Pulse 54 05/28/25 05:10 Resp 20 05/28/25 05:10 BP 120/54 L 05/28/25 05:10 Pulse Ox 100 05/28/25 05:10 O2 Del Method Oxymask 05/28/25 05:10 O2 Flow Rate 7 05/28/25 03:15 Oxygen Flow Rate 4 05/27/25 15:23 BMI result Body Mass Index 24.9 Const: General: cooperative, healthy appearing, comfortable and no acute distress Orientation/consciousness: patient oriented x3 HEENT: Face and sinus: Yes normal facial exam Mouth: moist mucous membranes Neck: Neck: Yes normal visual inspection, Yes full ROM and Yes trachea midline Chest: Chest palpation & inspection: normal inspection of the chest Resp: Effort & Inspection: normal respiratory effort, able to speak in complete sentences and no respiratory distress GI: Inspection: Yes normal to inspection Back/Spine/Pelvis: Cervical Spine: normal cervical lordosis Thoracic/Lumbar Spine: thoracic and lumbar spine normal to inspection Skin: General skin exam: no rashes or lesions noted Neuro: General: patient oriented x3, gait normal, tone normal and moves all extremities Extrem: General: Yes normal to inspection and Yes capillary refill normal Results Labs 05/28/25 05:00 05/28/25 05:00 Labs: Abnormal lab results 05/27/25 05/27/25 05/28/25 Range/Units 17:37 19:37 05:00 RBC 3.99 L D 3.79 L (4.20-5.50) X10*6/uL Hgb 11.0 L D 10.2 L (12.0-16.0) g/dl Hct 32.6 L D 31.4 L (37.0-47.0) % MCH 26.9 L (27.0-33.0) pg RDW 17.2 H 17.2 H (11.0-16.0) % Immature Gran % (Auto) 0.7 H 0.5 H (0.0-0.4) % Lymph % (Auto) 17.1 L 16.6 L (20-40) % Wheeler % (Auto) 17.6 H 17.7 H (2-11) % Wheeler # (Auto) 1.3 H 1.3 H (0.1-1.2) X10*3/uL Abs Immat Gran (auto) 0.05 H 0.04 H (0.00-0.03) X10*3/uL VBG HCO3 21 L (22-26) mmol/L Sodium 127 L 128 L (135-145) mmol/L Anion Gap 11 L 10 L (12-20) BUN 18 H 19 H (9-16) mg/dL Calcium 8.3 L (8.4-10.2) mg/dL B-Natriuretic Peptide 2171 H (<100) pg/mL Short CBC 05/27/25 05/28/25 Range/Units 17:37 05:00 WBC 7.4 7.5 (4.8-10.8) X10*3/uL Hgb 11.0 L D 10.2 L (12.0-16.0) g/dl Hct 32.6 L D 31.4 L (37.0-47.0) % Plt Count 166 D 173 (160-400) X10*3/uL BMP 05/27/25 05/28/25 17:37 05:00 Sodium 127 L 128 L Potassium 4.9 4.0 Chloride 99 100 Carbon Dioxide 22 22 BUN 18 H 19 H Creatinine 0.82 1.11 Calcium 8.7 D 8.3 L Liver Function 05/27/25 Range/Units 17:37 Total Bilirubin 0.9 (0.0-1.0) mg/dL AST 30 (5-31) U/L ALT 31 (0-31) U/L Alkaline Phosphatase 61 (39-117) U/L Albumin 3.7 (3.5-5.0) g/dL All other labs normal. Assessment and Plan (1) Urinary retention with incomplete bladder emptying: Status: Acute Plan Rae catheter for 48 hours then voiding trial Low-dose alpha-rasheeda Follow-up outpatient 6-8 weeks Procedures Date of Service Date of Service: 05/28/25
--- NOTE | 2025-05-28 07:44 | PC.NURSE ---
Ultrasound at bedside
--- NOTE | 2025-05-28 09:14 | PM.CNCAR ---
History of Present Illness History of Present Illness Date of Service: 05/28/25 Chief complaint: dyspnea Narrative: This is a cardiology consultation regarding congestive heart failure. Per documentation, patient has a history of chronic hypoxemic respiratory failure/COPD on baseline supplemental oxygen. She presents to the hospital complaints of shortness of breath. She has had these symptoms for the last week or so. It has been progressive and it seems she has just been weak and generally fatigued. In the ER, apparently required 6L supplemental oxygen on also found to have elevated BNP and that led to the hospitalization. Currently, patient states she just feels weak but otherwise okay. She is resting in bed. Appears somewhat sleepy and tired. Review of Systems Review of Systems: Yes all other systems are reviewed and are negative Constitutional: Constitutional: Reports as per HPI and Reports no additional constitutional complaints Eyes: Eyes: Reports as per HPI and Denies no additional eye complaints ENT: Denies system reviewed and no additional complaints, except as documented and Reports as per HPI Cardiovascular: Cardiovascular: Reports as per HPI, Reports no additional cardiovascular complaints, Denies acrocyanosis, Denies cool extremities, Denies chest pain, Denies leg edema, Denies lightheadedness, Denies palpitations and Reports dyspnea Respiratory: Respiratory: Reports as per HPI, Denies no additional respiratory complaints and Reports dyspnea Gastrointestinal: Gastrointestinal: Reports as per HPI and Denies no additional gastrointestinal complaints Genitourinary: Genitourinary: Reports as per HPI Musculoskeletal: Musculoskeletal: Reports no additional musculoskeletal complaints and Reports as per HPI Integumentary/Breasts: Skin/Breast: Reports system reviewed and no additional complaints, except as docu Neurologic: Reports system reviewed and no additional complaints, except as documented and Reports as per HPI Psychiatric: Psychiatric: Reports no additional psychiatric complaints and Reports as per HPI Endocrine: Endocrine: Reports no additional endocrine complaints, Reports as per HPI and Denies palpitations Hematologic/Lymphatic: Hematologic/Lymphatic: Reports no additional hematologic/lymphatic complaints and Reports as per HPI Allergic/Immunologic: Allergic/Immunologic: Reports no additional allergic/immunologic complaints and Reports as per HPI [facility] Past Medical History Medical History Exercise hypoxemia COPD (chronic obstructive pulmonary disease) Cough in adult patient Family History Family History Father No problems noted. Mother No problems noted. Social History Social History Household Members: Family Housing: House Do you presently have visiting nurse or other home services: No Alcohol intake: current Alcohol intake frequency: does not drink Patient Tobacco Use Status: Former Tobacco user e-Cigarette/Vaping Use: Former Use service: No Current occupational status: retired Cognitive needs: No Hearing needs: No Vision needs: No Meds Allergies Allergy/AdvReac Type Severity Reaction Status Date / Time No Known Allergies Allergy Mild N/A Verified 05/27/25 15:21 Active Medications: Current Medications Acetaminophen (Acetaminophen 325 Mg Tablet) 650 mg PO Q6H PRN PRN Reason: Pain, Mild 1-3,fever,headache Last Admin: 05/28/25 03:24 Dose: 650 mg Albuterol/Ipratropium (Albuterol/Iprat 2.5/0.5mg 3 Ml Ampul.Neb) 3 ml INHALE Q4H PRN PRN Reason: Shortness of Breath/Wheezing Benzonatate (Benzonatate 100 Mg Capsule) 100 mg PO TID PRN PRN Reason: Cough Calcium Carbonate (Calcium Carbonate 750 Mg Tab.Chew) 750 mg PO Q4H PRN PRN Reason: Heartburn Doxazosin Mesylate (Doxazosin Mesylate 1 Mg Tablet) 0.5 mg PO BEDTIME VIRY; Protocol Enoxaparin Sodium (Enoxaparin Sodium 40 Mg/0.4 Ml Syringe) 40 mg SUBCUT Q24H VIRY Last Admin: 05/27/25 22:31 Dose: 40 mg Furosemide (Furosemide 40 Mg/4 Ml Vial) 40 mg IVPUSH DAILY VIRY; Protocol Magnesium Hydroxide (Milk Of Magnesia 30 Ml Oral.Susp) 30 ml PO DAILY PRN PRN Reason: Constipation Melatonin (Melatonin 3 Mg Tablet) 6 mg PO BEDTIME PRN PRN Reason: Insomnia Ondansetron HCl (Ondansetron Hcl 4 Mg/2 Ml Vial) 4 mg IVPUSH Q8H PRN PRN Reason: Nausea and Vomiting Last Admin: 05/28/25 03:14 Dose: 4 mg Sodium Chloride (0.9 % Sodium Chloride Flush 3 Ml Syringe) 3 ml IVFLUSH QSHIFT VIRY Last Admin: 05/28/25 00:35 Dose: 3 ml Home Medications ?Medication ?Instructions ?Recorded ?Confirmed ?Last Taken ?Type acetaminophen 650 mg 650 mg PO TID 05/06/25 05/27/25 05/27/25 History tablet,extended release metoprolol succinate 25 mg 12.5 mg PO BID 05/27/25 05/27/25 05/27/25 History tablet,extended release 24 hr omeprazole 20 mg capsule,delayed 20 mg PO DAILY@0630 05/27/25 05/27/25 05/27/25 History release Physical Exam Vital Signs: Vital Signs: Last Vital Signs Temp 98.3 F 05/28/25 08:00 Pulse 54 05/28/25 08:00 Resp 16 05/28/25 08:00 BP 130/55 L 05/28/25 08:00 Pulse Ox 96 05/28/25 08:00 O2 Del Method Oxymask 05/28/25 08:00 O2 Flow Rate 5 05/28/25 08:00 Oxygen Flow Rate 4 05/27/25 15:23 BMI result Body Mass Index 25.3 Const: Other: sleepy General: comfortable, no acute distress and ill appearing Orientation/consciousness: patient oriented x3 HEENT: Other: Unremarkable Head: Yes normal to inspection Neck: Neck: Yes normal visual inspection Chest: Chest palpation & inspection: normal inspection of the chest Resp: Auscultation: crackles Cardio: Palpation: normal PMI Heart sounds: S1 normal heart sound present, S2 normal heart sound present, no gallops, Murmur heart sound present systolic at the apex and no rubs GI: Palpation (GI): Soft to palpation Back/Spine/Pelvis: Other: unremarkable Skin: General skin exam: no rashes or lesions noted Neuro: General: patient oriented x3 Extrem: Other: Trace edema General: Yes normal to inspection Psych: Mental Status: mental status grossly normal Objective Labs and Meds 05/28/25 05:00 05/28/25 05:00 Lab results: Laboratory Results - last 24 hr 05/27/25 05/27/25 05/27/25 17:37 18:51 19:37 WBC 7.4 RBC 3.99 L D Hgb 11.0 L D Hct 32.6 L D MCV 81.7 MCH 27.6 MCHC 33.7 RDW 17.2 H Plt Count 166 D MPV 10.0 Immature Gran % (Auto) 0.7 H Neut % (Auto) 62.7 Lymph % (Auto) 17.1 L [place] % (Auto) 17.6 H Eos % (Auto) 1.1 Baso % (Auto) 0.8 Lymph # (Auto) 1.3 [place] # (Auto) 1.3 H Eos # (Auto) 0.1 Baso # (Auto) 0.1 Abs Immat Gran (auto) 0.05 H Absolute Neuts (auto) 4.7 Absolute Nucleated RBC 0.000 Nucleated RBC % (auto) 0.0 VBG pH 7.35 VBG pCO2 36 VBG pO2 43 VBG HCO3 21 L VBG O2 Saturation 63.0 VBG Base Excess -3.9 Sodium 127 L Potassium 4.9 Chloride 99 Carbon Dioxide 22 Anion Gap 11 L BUN 18 H Creatinine 0.82 Estim Creat Clear Calc 32.9 Estimated GFR > 60 Random Glucose 98 Calcium 8.7 D Total Bilirubin 0.9 AST 30 ALT 31 Alkaline Phosphatase 61 Troponin I High Sens 9.5 B-Natriuretic Peptide 2171 H Total Protein 6.5 Albumin 3.7 Influenza Type A (PCR) NEGATIVE Influenza Type B (PCR) NEGATIVE RSV RNA Qual (PCR) NEGATIVE SARS-CoV-2 RNA (RT-PCR) NEGATIVE 05/28/25 05:00 WBC 7.5 RBC 3.79 L Hgb 10.2 L Hct 31.4 L MCV 82.8 MCH 26.9 L MCHC 32.5 RDW 17.2 H Plt Count 173 MPV 10.8 Immature Gran % (Auto) 0.5 H Neut % (Auto) 63.5 Lymph % (Auto) 16.6 L [place] % (Auto) 17.7 H Eos % (Auto) 0.9 Baso % (Auto) 0.8 Lymph # (Auto) 1.3 [place] # (Auto) 1.3 H Eos # (Auto) 0.1 Baso # (Auto) 0.1 Abs Immat Gran (auto) 0.04 H Absolute Neuts (auto) 4.8 Absolute Nucleated RBC 0.000 Nucleated RBC % (auto) 0.0 VBG pH VBG pCO2 VBG pO2 VBG HCO3 VBG O2 Saturation VBG Base Excess Sodium 128 L Potassium 4.0 Chloride 100 Carbon Dioxide 22 Anion Gap 10 L BUN 19 H Creatinine 1.11 Estim Creat Clear Calc 24.3 Estimated GFR 46 Random Glucose 100 Calcium 8.3 L Total Bilirubin AST ALT Alkaline Phosphatase Troponin I High Sens B-Natriuretic Peptide Total Protein Albumin Influenza Type A (PCR) Influenza Type B (PCR) RSV RNA Qual (PCR) SARS-CoV-2 RNA (RT-PCR) ECG Interpretation: EKG with underlying sinus rhythm at 63/Min; T inversions in inferior leads; nonspecific changes in the anterior leads. In the repeat EKG, nonspecific changes in the inferior anterior, lateral leads. Imaging Radiologist's impression: Impressions Chest X-Ray 05/27/25 18:42 IMPRESSION: Cardiomegaly. No acute cardiopulmonary abnormality. Electronically signed by: Kyle Medina MD 05/28/2025 08:04 AM EDT RP Assessment and Plan (1) Acute hypoxic respiratory failure: Status: Acute Plan Cardiac BNP is over 2000. High sensitivity troponin within range. Ches x-ray reported have cardiomegaly but no acute findings. Described to have clear lung oneill. Etiology for the cardiac BNP elevation could be undiagnosed left ventricular dysfunction but could also be related to pulmonary hypertension/right heart dysfunction. Needs an echocardiogram for further evaluation. Currently on empiric diuretics and that can be continued. Procedures Date of Service Date of Service: 05/28/25
[2025-05-28] MEDS: Furosemide 40 MG/4 ML VIAL IVPUSH (09:29)
--- NOTE | 2025-05-28 11:53 | HO.WOUND ---
Wound Consult: Initial 89yr old female [place] [facility] [place] - See progress notes and H&P for detailed history.? Wound consult placed for sacrum.? Patient agreeable to assessment and photo documentation.? Chart review and photo assessment along with discussion with RN as patient was experiencing nausea at the time of my consult. Sacrum Etiology: ?Stage 1 Pressure Injury ?Present on Admission Wound Bed: red pink intact nonblanchable tissue Drainage / Odor: None Edges: ?attached Lynsey wound: ?intact No Induration, Fluctuance or Warmth noted Goals of Treatment: ? Off load pressure and friction with foam dressing Recommendations: 1. Turn and Reposition every 2 hours and as needed for patient comfort.? Use pillows or wedges to support off loading positions. 2. Off Load all bony prominences with use of pillows and heel boots if needed.? Apply Preventative foams where needed. ? 3. Monitor for incontinence and moisture control, use barrier creams when needed for prevention and treatment. 4. Provide adequate and supplemental nutrition.? 5. Order low air loss mattress. 6. When applicable maintain blood glucose levels per Providers order. Sacrum - Off Load Pressure with Q2 hr turns and use of pillows - Routine cleansing.? Apply skin prep allow to dry.? Cover with foam dressing to aid in off loading and protection from friction. Change every 3 days and PRN. Re-consult wound care Nurse for wound deterioration or wound changes.
--- NOTE | 2025-05-28 14:06 | MHC.CLN ---
NUTRITION DIET=2 GRAM SODIUM. DX NEW ONSET CHF REQUIRING IV DIURESIS. SKIN PER WOUND RN, STAGE I TO SACRUM, REDNESS TO BILATERAL HEELS. RD TO MONITOR WEEKLY FOR PO INTAKE AND SKIN INTEGRITY.
--- NOTE | 2025-05-28 14:10 | P.PNIM_ITS ---
Subjective Subjective Date of Service: 05/28/25 Interval History: c/o weakness, cough, dyspnea no chest pain Review of Systems Review of Systems: Yes all other systems are reviewed and are negative Physical Exam 2 Vital Signs: Vital Signs: Last Vital Signs Temp 98.3 F 05/28/25 08:00 Pulse 54 05/28/25 08:00 Resp 16 05/28/25 08:00 BP 130/55 L 05/28/25 08:00 Pulse Ox 96 05/28/25 08:00 O2 Del Method Oxymask 05/28/25 08:00 O2 Flow Rate 5 05/28/25 08:00 Oxygen Flow Rate 4 05/27/25 15:23 BMI result Body Mass Index 25.3 Gen: in no acute distress HEENT: sclera anicteric, moist mucus membranes Neck: supple Lungs: clear to auscultation bilaterally Heart: regular rate and rhythm, no murmurs Abd: soft, non-tender, non-distended Ext: 1+ bilateral leg edema Skin: warm/well-perfused Neuro: alert and oriented x3, no focal findings Psych: appropriate affect Objective Data Active Medications Acetaminophen (Acetaminophen 325 Mg Tablet) 650 mg PO Q6H PRN PRN Reason: Pain, Mild 1-3,fever,headache Last Admin: 05/28/25 03:24 Dose: 650 mg Documented By: NIC Albuterol/Ipratropium (Albuterol/Iprat 2.5/0.5mg 3 Ml Ampul.Neb) 3 ml INHALE Q4H PRN PRN Reason: Shortness of Breath/Wheezing Benzonatate (Benzonatate 100 Mg Capsule) 100 mg PO TID PRN PRN Reason: Cough Calcium Carbonate (Calcium Carbonate 750 Mg Tab.Chew) 750 mg PO Q4H PRN PRN Reason: Heartburn Doxazosin Mesylate (Doxazosin Mesylate 1 Mg Tablet) 0.5 mg PO BEDTIME VIRY; Protocol Enoxaparin Sodium (Enoxaparin Sodium 30 Mg/0.3 Ml Syringe) 30 mg SUBCUT Q24H VIRY Furosemide (Furosemide 40 Mg/4 Ml Vial) 40 mg IVPUSH DAILY VIRY; Protocol Last Admin: 05/28/25 09:29 Dose: 40 mg Documented By: JABIER Magnesium Hydroxide (Milk Of Magnesia 30 Ml Oral.Susp) 30 ml PO DAILY PRN PRN Reason: Constipation Melatonin (Melatonin 3 Mg Tablet) 6 mg PO BEDTIME PRN PRN Reason: Insomnia Ondansetron HCl (Ondansetron Hcl 4 Mg/2 Ml Vial) 4 mg IVPUSH Q8H PRN PRN Reason: Nausea and Vomiting Last Admin: 05/28/25 11:04 Dose: 4 mg Documented By: JABIER Sodium Chloride (0.9 % Sodium Chloride Flush 3 Ml Syringe) 3 ml IVFLUSH [facility] Last Admin: 05/28/25 09:30 Dose: 3 ml Documented By: JABIER Labs 05/28/25 05:00 05/28/25 05:00 Labs: Laboratory Results - last 24 hr 05/27/25 05/27/25 05/27/25 17:37 18:51 19:37 MCV 81.7 MCH 27.6 MCHC 33.7 RDW 17.2 H Plt Count 166 D MPV 10.0 Immature Gran % (Auto) 0.7 H Neut % (Auto) 62.7 Lymph % (Auto) 17.1 L [place] % (Auto) 17.6 H Eos % (Auto) 1.1 Baso % (Auto) 0.8 Lymph # (Auto) 1.3 [place] # (Auto) 1.3 H Eos # (Auto) 0.1 Baso # (Auto) 0.1 Abs Immat Gran (auto) 0.05 H Absolute Neuts (auto) 4.7 Absolute Nucleated RBC 0.000 Nucleated RBC % (auto) 0.0 VBG pH 7.35 VBG pCO2 36 VBG pO2 43 VBG HCO3 21 L VBG O2 Saturation 63.0 VBG Base Excess -3.9 Anion Gap 11 L Estim Creat Clear Calc 32.9 Estimated GFR > 60 Random Glucose 98 Calcium 8.7 D Total Bilirubin 0.9 AST 30 ALT 31 Alkaline Phosphatase 61 B-Natriuretic Peptide 2171 H Total Protein 6.5 Albumin 3.7 Influenza Type A (PCR) NEGATIVE Influenza Type B (PCR) NEGATIVE RSV RNA Qual (PCR) NEGATIVE SARS-CoV-2 RNA (RT-PCR) NEGATIVE 05/28/25 05:00 MCV 82.8 MCH 26.9 L MCHC 32.5 RDW 17.2 H Plt Count 173 MPV 10.8 Immature Gran % (Auto) 0.5 H Neut % (Auto) 63.5 Lymph % (Auto) 16.6 L [place] % (Auto) 17.7 H Eos % (Auto) 0.9 Baso % (Auto) 0.8 Lymph # (Auto) 1.3 [place] # (Auto) 1.3 H Eos # (Auto) 0.1 Baso # (Auto) 0.1 Abs Immat Gran (auto) 0.04 H Absolute Neuts (auto) 4.8 Absolute Nucleated RBC 0.000 Nucleated RBC % (auto) 0.0 VBG pH VBG pCO2 VBG pO2 VBG HCO3 VBG O2 Saturation VBG Base Excess Anion Gap 10 L Estim Creat Clear Calc 24.3 Estimated GFR 46 Random Glucose 100 Calcium 8.3 L Total Bilirubin AST ALT Alkaline Phosphatase B-Natriuretic Peptide Total Protein Albumin Influenza Type A (PCR) Influenza Type B (PCR) RSV RNA Qual (PCR) SARS-CoV-2 RNA (RT-PCR) Assessment and Plan (1) New onset of congestive heart failure: Status: Acute Plan d2 for 89yo F with chronic hypoxia due to COPD on 2L home O2, HTN, and lumbar radiculopathy presenting with 1 wk of exertional dyspnea and orthopnea and weakness, admitted for suspected CHF AHRF due to acute CHF, unknown EF - continue IV furosemide, TTE pending, Cardiology consult pending, continue metoprolol succinate + losartan, monitor I/O + wts + lytes + BNP - wean O2 as tolerated COPD with possible exacerbation - start IV methylprednisolone - nebs, Breo hypoNa - suspect due to CHF, continue diuresis as above AUR - doxazosin, Rae x48hr per Urology consulted HTN - continue metoprolol succinate + losartan VTE ppx - enoxaparin dispo - TBD In my clinical judgment, the patient requires continued inpatient hospitalization for the following reasons: IV diuresis Total time managing care of this patient today: 35 minutes. Quality Stroke Does the patient have a stroke diagnosis?: No VTE Prior VTE?: No VTE Risk Level:: Medical - moderate - high VTE Device Contraindication: Treatment Not Indicated VTE Drug Contraindication: N/A - Med Ordered
--- NOTE | 2025-05-28 15:05 | MHC.CM.PN ---
pt lives with son has home 02 will be transported home by son dc plan homew/family
[2025-05-28 16:15] LABS: Glucose, Whole Blood 87 mg/dL (60-115)
[2025-05-28 16:27] LABS: ABG HCO3 27 mmol/L (22-26); ABG O2 % Saturation 95.0 %
--- NOTE | 2025-05-28 17:44 | PC.NURSE ---
Pt found to be lethargic and arousable only to sternal rub. Fell asleep shortly after arousing. MD contacted and came to bedside head CT was ordered and results were negative. ABG s ordered PCO2 47. Vital signs WNL. She was placed on respiratory BIPAP machine and suggested by respiratory to have continuous O2 monitoring. Pt also placed on continuous telemetry. [facility] decided to cancel transfer to [facility] d/t DNR/DNI status.
[2025-05-28 18:19] LABS: Ammonia 23 umol/L (13-55)
[2025-05-28 18:28] LABS: Alanine Aminotransferase 23 U/L (0-31); Albumin Level 3.5 g/dL (3.5-5.0); Alkaline Phosphatase 59 U/L (39-117); Anion Gap 11 (12-20); Aspartate Amino Transferase 30 U/L (5-31); Blood Urea Nitrogen 18 mg/dL (9-16); Calcium 8.5 mg/dL (8.4-10.2); Carbon Dioxide 24 mmol/L (22-29); Chloride 100 mmol/L (96-108); Creatinine Clr Calc Pharmacy 24.9; Estimated Glomerular Filt Rate 47; Potassium 4.2 mmol/L (3.3-5.1); Sodium 131 mmol/L (135-145); Total Protein 6.0 g/dL (6.5-8.0)
[2025-05-28] MEDS: Metoprolol Succinate ER 12.5 MG HALFTAB.ER.24H PO (21:58)
[2025-05-28 23:45] LABS: ABG Refer to POC result
[2025-05-29 06:47] LABS: VBG HCO3 26 mmol/L (22-26); VBG O2 % Saturation 80.0 %
[2025-05-29 07:00] LABS: Anion Gap 13 (12-20); Blood Urea Nitrogen 32 mg/dL (9-16); Calcium 8.7 mg/dL (8.4-10.2); Carbon Dioxide 24 mmol/L (22-29); Chloride 102 mmol/L (96-108); Creatinine Clr Calc Pharmacy 17.8; Estimated Glomerular Filt Rate 32; Magnesium 2.2 mg/dL (1.6-2.6); Potassium 4.8 mmol/L (3.3-5.1); Sodium 134 mmol/L (135-145)
[2025-05-29 07:05] LABS: Venous Blood Gas Refer to POC result
[2025-05-29 07:55] VITALS: BP 118/65; PULSE 67; RESP 18; TEMP 37.1; O2SAT 95
[2025-05-29 07:57] VITALS: O2SAT 95
[2025-05-29] MEDS: Fluticasone/Vilanterol 100/25 BLST.W.DEV 1 PUFF INHALE (08:24)
[2025-05-29 08:25] VITALS: PULSE 69; PULSE 79; RESP 15; RESP 16; O2SAT 92
[2025-05-29] MEDS: 0.9 % Sodium Chloride Flush 3 ML SYRINGE IVFLUSH ×3 (08:36→23:43)
[2025-05-29] MEDS: Metoprolol Succinate ER 12.5 MG HALFTAB.ER.24H PO ×2 (08:36→21:14)
--- NOTE | 2025-05-29 11:53 | P.PNIM_ITS ---
Subjective Subjective Date of Service: 05/29/25 Interval History: much more awake c/o dyspnea no chest pain no edema Review of Systems Review of Systems: Yes all other systems are reviewed and are negative Physical Exam 2 Vital Signs: Vital Signs: Last Vital Signs Temp 98.7 F 05/29/25 07:55 Pulse 79 05/29/25 08:25 Resp 16 05/29/25 08:25 BP 118/65 05/29/25 07:55 Pulse Ox 95 05/29/25 07:57 O2 Del Method Nasal Cannula 05/29/25 07:57 O2 Flow Rate 2 05/29/25 07:55 Oxygen Flow Rate 2 05/29/25 07:57 BMI result Body Mass Index 25.3 Gen: in no acute distress HEENT: sclera anicteric, moist mucus membranes Neck: supple Lungs: diminished Heart: regular rate and rhythm, no murmurs Abd: soft, non-tender, non-distended Ext: no leg edema Skin: warm/well-perfused Neuro: alert and oriented x3, no focal findings Psych: appropriate affect Objective Data Active Medications Acetaminophen (Acetaminophen 325 Mg Tablet) 650 mg PO Q6H PRN PRN Reason: Pain, Mild 1-3,fever,headache Last Admin: 05/28/25 03:24 Dose: 650 mg Documented By: NIC Albuterol/Ipratropium (Albuterol/Iprat 2.5/0.5mg 3 Ml Ampul.Neb) 3 ml INHALE Q4H PRN PRN Reason: Shortness of Breath/Wheezing Benzonatate (Benzonatate 100 Mg Capsule) 100 mg PO TID PRN PRN Reason: Cough Last Admin: 05/29/25 08:42 Dose: 100 mg Documented By: SOREN Calcium Carbonate (Calcium Carbonate 750 Mg Tab.Chew) 750 mg PO Q4H PRN PRN Reason: Heartburn Doxazosin Mesylate (Doxazosin Mesylate 1 Mg Tablet) 0.5 mg PO BEDTIME VIRY; Protocol Last Admin: 05/28/25 21:57 Dose: 0.5 mg Documented By: LAURENCE Enoxaparin Sodium (Enoxaparin Sodium 30 Mg/0.3 Ml Syringe) 30 mg SUBCUT Q24H VIRY Last Admin: 05/28/25 21:59 Dose: 30 mg Documented By: LAURENCE Fluticasone/Vilanterol (Fluticasone/Vilanterol 100/25 Blst.W.Dev) 1 puff INHALE RDAILY [facility] Last Admin: 05/29/25 08:24 Dose: 1 puff Documented By: LILI Furosemide (Furosemide 40 Mg/4 Ml Vial) 40 mg IVPUSH DAILY [facility]; Protocol On Hold: 05/29/25 07:36 Last Admin: 05/28/25 09:29 Dose: 40 mg Documented By: JABIER Losartan Potassium (Losartan Potassium 50 Mg Tablet) 50 mg PO BID [facility]; Protocol Last Admin: 05/29/25 08:36 Dose: 50 mg Documented By: SOREN Magnesium Hydroxide (Milk Of Magnesia 30 Ml Oral.Susp) 30 ml PO DAILY PRN PRN Reason: Constipation Melatonin (Melatonin 3 Mg Tablet) 6 mg PO BEDTIME PRN PRN Reason: Insomnia Methylprednisolone Sodium Succinate (Methylprednisolone Sod Succ 40 Mg/Ml Vial) 40 mg IVPUSH Q24H [facility] Last Admin: 05/28/25 16:17 Dose: 40 mg Documented By: JABIER Metoprolol Succinate (Metoprolol Succinate Er 12.5 Mg Halftab.Er.24h) 12.5 mg PO BID [facility]; Protocol Last Admin: 05/29/25 08:36 Dose: 12.5 mg Documented By: SOREN Omeprazole (Omeprazole 20 Mg Capsule.Dr) 20 mg PO DAILY@0630 [facility] Last Admin: 05/29/25 06:12 Dose: 20 mg Documented By: LAURENCE Ondansetron HCl (Ondansetron Hcl 4 Mg/2 Ml Vial) 4 mg IVPUSH Q8H PRN PRN Reason: Nausea and Vomiting Last Admin: 05/28/25 11:04 Dose: 4 mg Documented By: JABIER Sodium Chloride (0.9 % Sodium Chloride Flush 3 Ml Syringe) 3 ml IVFLUSH QSHIFT [facility] Last Admin: 05/29/25 08:36 Dose: 3 ml Documented By: SOREN Labs 05/28/25 05:00 05/29/25 06:34 Labs: Laboratory Results - last 24 hr 05/28/25 05/28/25 05/28/25 16:11 16:24 18:04 O2 Saturation 95.0 ABG pH at Pt Temp 7.36 ABG pCO2 at Pt Temp 47 H ABG pO2 at Pt Temp 78 L ABG HCO3 27 H ABG Base Excess (Actual) 1.7 VBG pH VBG pCO2 VBG pO2 VBG HCO3 VBG O2 Saturation VBG Base Excess Anion Gap 11 L Estim Creat Clear Calc 24.9 Estimated GFR 47 POC Glucose 87 Random Glucose 93 Calcium 8.5 Magnesium Total Bilirubin 0.6 Direct Bilirubin 0.3 AST 30 ALT 23 Alkaline Phosphatase 59 Ammonia 23 Total Protein 6.0 L Albumin 3.5 05/29/25 05/29/25 06:34 06:44 O2 Saturation ABG pH at Pt Temp ABG pCO2 at Pt Temp ABG pO2 at Pt Temp ABG HCO3 ABG Base Excess (Actual) VBG pH 7.38 VBG pCO2 44 VBG pO2 50 VBG HCO3 26 VBG O2 Saturation 80.0 VBG Base Excess 1.4 Anion Gap 13 Estim Creat Clear Calc 17.8 Estimated GFR 32 POC Glucose Random Glucose 118 H Calcium 8.7 Magnesium 2.2 Total Bilirubin Direct Bilirubin AST ALT Alkaline Phosphatase Ammonia Total Protein Albumin Impressions Venous Duplex 05/28/25 11:55 IMPRESSION: No acute deep venous thrombosis interrogated veins, bilateral lower extremities. Negative for DVT. Electronically signed by: Enoch Hoover MD 05/28/2025 12:20 PM EDT RP Head CT 05/28/25 16:33 IMPRESSION: No acute intracranial abnormality. Electronically signed by: Uri Michaels MD 05/28/2025 05:09 PM EDT RP Chest CT 05/29/25 08:11 IMPRESSION: Postsurgical changes on the right. New irregular spiculated nodule in the right upper lobe measuring 11 x 6 x 11 mm. Findings are suspicious for neoplasm, especially given the patient's history of prior lung cancer. Surgical consultation is recommended. Short-term follow-up chest CT versus PET/CT scan is also recommended. Findings were communicated to Harsha Mascorro MD by secure text message on 05/29/2025 at 8:49 AM. Electronically signed by: Kyle Medina MD 05/29/2025 08:51 AM EDT RP Assessment and Plan (1) New onset of congestive heart failure: Status: Acute Plan d3 for 89yo F with chronic hypoxia due to COPD on 2L home O2, HTN, hx lung CA s/p LLLobectomy and lumbar radiculopathy presenting with 1 wk of exertional dyspnea and orthopnea and weakness, admitted for suspected CHF COPD with possible exacerbation - started IV methylprednisolone 05/28- - nebs, Breo suspicious lung nodule - Pulm consult, followed by Dr Elise as outpt acute/chronic HFpEF - diuresed with IV furosemide, neg negative 2900mL and now dry; hold further diuresis - continue losartan + metoprolol succinate ANGELA - suspect due to excess diuresis; hold furosemide and recheck BMP tomorrow AHRF - wean O2 as tolerated hypoNa - resolved AUR - doxazosin, Rae x48hr per Urology HTN - continue metoprolol succinate + losartan VTE ppx - enoxaparin dispo - PT consult In my clinical judgment, the patient requires continued inpatient hospitalization for the following reasons: IV diuresis Total time managing care of this patient today: 35 minutes. Quality Stroke Does the patient have a stroke diagnosis?: No VTE Prior VTE?: No VTE Risk Level:: Medical - moderate - high VTE Device Contraindication: Treatment Not Indicated VTE Drug Contraindication: N/A - Med Ordered
[2025-05-29 12:16] LABS: Chlamydia pneumoniae PCR Not Detected (Not Detect.); Coronavirus 229E PCR Not Detected (Not Detect.); Coronavirus HKU1 PCR Not Detected (Not Detect.); Coronavirus NL63 PCR Not Detected (Not Detect.); Coronavirus OC43 PCR Not Detected (Not Detect.); RSV PCR Not Detected (Not Detect.); Rhino/Enterovirus PCR Not Detected (Not Detect.)
[2025-05-29 12:39] LABS: Influenza A H1 PCR Not Detected (Not Detect.); Influenza A H1-2009 PCR Not Detected (Not Detect.); Influenza A H3 PCR Not Detected (Not Detect.); SARS-CoV-2 PCR Not Detected (Not Detect.)
--- NOTE | 2025-05-29 12:58 | PM.CNPUL ---
History of Present Illness History of Present Illness Consult date: 05/29/25 Chief complaint: dyspnea, abnormal CT chest Narrative: 89-year-old lady with underlying COPD on supplemental oxygen up to 2 L, prior right-sided cancer status post remote resection admitted on 05/27/2025 with a paroxysmally one-week history progressive dyspnea and orthopnea. On initial evaluation patient deemed to be in exacerbation of underlying congestive heart failure and treated with IV diuresis with improvement in her respiratory status essentially to baseline. CT chest was obtained in showed a new 16 mm right-sided pulmonary nodule. Review of Systems Constitutional: Constitutional: Denies weight loss Cardiovascular: Cardiovascular: Reports dyspnea, Reports dyspnea on exertion and Reports orthopnea Respiratory: Respiratory: Denies cough, Denies excessive phlegm production, Reports dyspnea, Reports dyspnea on exertion and Denies wheezing Allergic/Immunologic: Allergic/Immunologic: Denies wheezing PMF Past Medical History Medical History (Updated 05/29/25 @ 13:02 by Vance Chacko MD) Exercise hypoxemia COPD (chronic obstructive pulmonary disease) Cough in adult patient Family History Family History Father No problems noted. Mother No problems noted. Social History Social History Household Members: Family Housing: House Do you presently have visiting nurse or other home services: No Alcohol intake: current Alcohol intake frequency: does not drink Patient Tobacco Use Status: Former Tobacco user e-Cigarette/Vaping Use: Former Use service: No Current occupational status: retired Cognitive needs: No Hearing needs: No Vision needs: No Meds Allergies Allergy/AdvReac Type Severity Reaction Status Date / Time No Known Allergies Allergy Mild N/A Verified 05/27/25 15:21 Active Medications: Current Medications Acetaminophen (Acetaminophen 325 Mg Tablet) 650 mg PO Q6H PRN PRN Reason: Pain, Mild 1-3,fever,headache Last Admin: 05/28/25 03:24 Dose: 650 mg Albuterol/Ipratropium (Albuterol/Iprat 2.5/0.5mg 3 Ml Ampul.Neb) 3 ml INHALE Q4H PRN PRN Reason: Shortness of Breath/Wheezing Benzonatate (Benzonatate 100 Mg Capsule) 100 mg PO TID PRN PRN Reason: Cough Last Admin: 05/29/25 08:42 Dose: 100 mg Calcium Carbonate (Calcium Carbonate 750 Mg Tab.Chew) 750 mg PO Q4H PRN PRN Reason: Heartburn Doxazosin Mesylate (Doxazosin Mesylate 1 Mg Tablet) 0.5 mg PO BEDTIME [facility]; Protocol Last Admin: 05/28/25 21:57 Dose: 0.5 mg Enoxaparin Sodium (Enoxaparin Sodium 30 Mg/0.3 Ml Syringe) 30 mg SUBCUT Q24H [facility] Last Admin: 05/28/25 21:59 Dose: 30 mg Fluticasone/Vilanterol (Fluticasone/Vilanterol 100/25 Blst.W.Dev) 1 puff INHALE RDAILY [facility] Last Admin: 05/29/25 08:24 Dose: 1 puff Furosemide (Furosemide 40 Mg/4 Ml Vial) 40 mg IVPUSH DAILY [facility]; Protocol On Hold: 05/29/25 07:36 Last Admin: 05/28/25 09:29 Dose: 40 mg Losartan Potassium (Losartan Potassium 50 Mg Tablet) 50 mg PO BID [facility]; Protocol Last Admin: 05/29/25 08:36 Dose: 50 mg Magnesium Hydroxide (Milk Of Magnesia 30 Ml Oral.Susp) 30 ml PO DAILY PRN PRN Reason: Constipation Melatonin (Melatonin 3 Mg Tablet) 6 mg PO BEDTIME PRN PRN Reason: Insomnia Methylprednisolone Sodium Succinate (Methylprednisolone Sod Succ 40 Mg/Ml Vial) 40 mg IVPUSH Q24H [facility] Last Admin: 05/28/25 16:17 Dose: 40 mg Metoprolol Succinate (Metoprolol Succinate Er 12.5 Mg Halftab.Er.24h) 12.5 mg PO BID [facility]; Protocol Last Admin: 05/29/25 08:36 Dose: 12.5 mg Omeprazole (Omeprazole 20 Mg Capsule.Dr) 20 mg PO DAILY@0630 [facility] Last Admin: 05/29/25 06:12 Dose: 20 mg Ondansetron HCl (Ondansetron Hcl 4 Mg/2 Ml Vial) 4 mg IVPUSH Q8H PRN PRN Reason: Nausea and Vomiting Last Admin: 05/28/25 11:04 Dose: 4 mg Sodium Chloride (0.9 % Sodium Chloride Flush 3 Ml Syringe) 3 ml IVFLUSH QSHIFT [facility] Last Admin: 05/29/25 08:36 Dose: 3 ml Home Medications ?Medication ?Instructions ?Recorded ?Confirmed ?Last Taken ?Type acetaminophen 650 mg 650 mg PO TID 05/06/25 05/27/25 05/27/25 History tablet,extended release metoprolol succinate 25 mg 12.5 mg PO BID 05/27/25 05/27/25 05/27/25 History tablet,extended release 24 hr omeprazole 20 mg capsule,delayed 20 mg PO DAILY@0630 05/27/25 05/27/25 05/27/25 History release Physical Exam Vital Signs: Vital Signs: Last Vital Signs Temp 98.7 F 05/29/25 07:55 Pulse 79 05/29/25 08:25 Resp 16 05/29/25 08:25 BP 118/65 05/29/25 07:55 Pulse Ox 95 05/29/25 07:57 O2 Del Method Nasal Cannula 05/29/25 07:57 O2 Flow Rate 2 05/29/25 07:55 Oxygen Flow Rate 2 05/29/25 07:57 BMI result Body Mass Index 25.3 Const: General: no acute distress, alert and awake Eyes: Sclerae: sclerae normal EOM: EOMs intact bilaterally Neck: Neck: Yes no lymphadenopathy, Yes trachea midline and Yes supple Resp: Effort & Inspection: normal respiratory effort and no respiratory distress Auscultation: clear to auscultation bilaterally Cardio: Rate: regular rate Rhythm: regular rhythm Heart sounds: no gallops, no murmurs and no rubs GI: Palpation (GI): Soft to palpation and Other GI palpation findings present ( Nontender) Auscultation: normal bowel sounds Extrem: General: Yes no pedal edema, No clubbing and No cyanosis Results Laboratory Findings 05/28/25 05:00 05/29/25 06:34 Abnormal lab findings: Abnormal Labs 05/27/25 05/27/25 05/28/25 17:37 19:37 05:00 RBC 3.99 L D 3.79 L Hgb 11.0 L D 10.2 L Hct 32.6 L D 31.4 L MCH 26.9 L RDW 17.2 H 17.2 H Immature Gran % (Auto) 0.7 H 0.5 H Lymph % (Auto) 17.1 L 16.6 L [place] % (Auto) 17.6 H 17.7 H [place] # (Auto) 1.3 H 1.3 H Abs Immat Gran (auto) 0.05 H 0.04 H ABG pCO2 at Pt Temp ABG pO2 at Pt Temp ABG HCO3 VBG HCO3 21 L Sodium 127 L 128 L Anion Gap 11 L 10 L BUN 18 H 19 H Creatinine Random Glucose Calcium 8.3 L B-Natriuretic Peptide 2171 H Total Protein 05/28/25 05/28/25 05/29/25 16:24 18:04 06:34 RBC Hgb Hct MCH RDW Immature Gran % (Auto) Lymph % (Auto) [place] % (Auto) [place] # (Auto) Abs Immat Gran (auto) ABG pCO2 at Pt Temp 47 H ABG pO2 at Pt Temp 78 L ABG HCO3 27 H VBG HCO3 Sodium 131 L 134 L Anion Gap 11 L BUN 18 H 32 H Creatinine 1.53 H Random Glucose 118 H Calcium B-Natriuretic Peptide Total Protein 6.0 L Assessment and Plan (1) COPD (chronic obstructive pulmonary disease): Status: Acute (2) Acute on chronic hypoxic respiratory failure: Status: Acute (3) Pulmonary nodule 1 cm or greater in diameter: Status: Acute Plan Impression: 89-year-old lady with underlying COPD on 2 L of supplemental oxygen at baseline, remote history of right-sided lung cancer resection, now with newly noted 16 mm pulmonary nodule. Recommendation: Outpatient workup with likely IR guided biopsy, PET, and SBRT thereafter. Procedures Date of Service Date of Service: 05/29/25
[2025-05-29 13:43] LABS: B Type Natriuretic Peptide 1373 pg/mL (<100)
--- NOTE | 2025-05-29 14:43 | MHC.SL.SWA ---
Liquid Consistency and Strategies for Safe Swallow: Liquid Intake Recommendation: Thin Solid Food Consistency: Dietary Recommendations: Regular Oral Medication Intake: Whole with Liquid Please contact the pharmacy regarding appropriate crushable or liquid drug formulations that are available whenever modified delivery is recommended. Compensatory Strategies and Precautions to be Taken for Safe Swallow: slow rate alternate liquids and solids small bites Supervision While Eating and Drinking for Safe Swallow: Intermittent Supervision Recommendation for Speech: NA:Typical Evaluation Comment: Pt seen for clinical swallow evaluation. She presented with prolonged mastication likely secondary to limited dentition which would be expected. Overall, swallow WFL. Regular solids and thin liquids are appropriate. Pt reports difficulty w/ larger pills and expressed preference for large pills cut 1/2. MD reports evaluation initially placed d/t pt lethargy which has since improved. No further DIRECTOR [employer] tx is warranted. Please re-refer if additional concerns arise. [employer] Repairer Clinican/Clinical Fellow: No Supervisory Statement: I have reviewed and agree with the student/clinical fellow's documentation: N/A Speech Language Pathologist: Macy Sheridan M.A., CCC-DIRECTOR ON [employer]
[2025-05-29 15:27] VITALS: BP 140/65; PULSE 57; RESP 18; TEMP 36.4; O2SAT 100
[2025-05-29 15:49] VITALS: O2SAT 98
[2025-05-29 21:14] VITALS: BP 136/63; PULSE 66
[2025-05-30] VITALS (7 sets, daily range): BP systolic 130–183; BP diastolic 63–80; PULSE 60–67; RESP 14–18; TEMP 36.4–37.2; O2SAT 90–95
[2025-05-30 06:35] LABS: Anion Gap 10 (12-20); Blood Urea Nitrogen 31 mg/dL (9-16); Calcium 8.7 mg/dL (8.4-10.2); Carbon Dioxide 25 mmol/L (22-29); Chloride 102 mmol/L (96-108); Creatinine Clr Calc Pharmacy 21.9; Estimated Glomerular Filt Rate 41; Magnesium 2.2 mg/dL (1.6-2.6); Potassium 5.1 mmol/L (3.3-5.1); Sodium 132 mmol/L (135-145)
[2025-05-30 06:40] LABS: B Type Natriuretic Peptide 1030 pg/mL (<100)
[2025-05-30] MEDS: Fluticasone/Vilanterol 100/25 BLST.W.DEV 1 PUFF INHALE (07:51)
[2025-05-30] MEDS: 0.9 % Sodium Chloride Flush 3 ML SYRINGE IVFLUSH ×2 (08:55→16:24)
[2025-05-30] MEDS: Metoprolol Succinate ER 12.5 MG HALFTAB.ER.24H PO ×2 (08:55→21:38)
--- NOTE | 2025-05-30 11:21 | HO.PM.IMPN ---
Subjective Subjective Date of Service: 05/30/25 Interval History: cough and dyspnea slightly improved, good mental status Review of Systems Review of Systems: Yes all other systems are reviewed and are negative Physical Exam Vital Signs: Vital Signs: Last Vital Signs Temp 97.6 F 05/30/25 07:36 Pulse 61 05/30/25 07:55 Resp 14 05/30/25 07:55 BP 130/80 05/30/25 07:36 Pulse Ox 92 05/30/25 07:36 O2 Del Method Nasal Cannula 05/30/25 08:00 O2 Flow Rate 2 05/30/25 07:36 Oxygen Flow Rate 2 05/30/25 00:00 BMI result Body Mass Index 25.3 Gen: in no acute distress HEENT: sclera anicteric, moist mucus membranes Neck: supple Lungs: diminished Heart: regular rate and rhythm, no murmurs Abd: soft, non-tender, non-distended Ext: no leg edema Skin: warm/well-perfused Neuro: alert and oriented x3, no focal findings Psych: appropriate affect Objective Data Active Medications Acetaminophen (Acetaminophen 325 Mg Tablet) 650 mg PO Q6H PRN PRN Reason: Pain, Mild 1-3,fever,headache Last Admin: 05/29/25 14:19 Dose: 650 mg Documented By: SOREN Albuterol/Ipratropium (Albuterol/Iprat 2.5/0.5mg 3 Ml Ampul.Neb) 3 ml INHALE Q4H PRN PRN Reason: Shortness of Breath/Wheezing Benzonatate (Benzonatate 100 Mg Capsule) 100 mg PO TID PRN PRN Reason: Cough Last Admin: 05/30/25 08:55 Dose: 100 mg Documented By: SOREN Calcium Carbonate (Calcium Carbonate 750 Mg Tab.Chew) 750 mg PO Q4H PRN PRN Reason: Heartburn Doxazosin Mesylate (Doxazosin Mesylate 1 Mg Tablet) 0.5 mg PO BEDTIME [facility]; Protocol Last Admin: 05/29/25 21:14 Dose: 0.5 mg Documented By: KEVIN Enoxaparin Sodium (Enoxaparin Sodium 30 Mg/0.3 Ml Syringe) 30 mg SUBCUT Q24H [facility] Last Admin: 05/29/25 21:14 Dose: 30 mg Documented By: KEVIN Fluticasone/Vilanterol (Fluticasone/Vilanterol 100/25 Blst.W.Dev) 1 puff INHALE RDAILY [facility] Last Admin: 05/30/25 07:51 Dose: 1 puff Documented By: TR Furosemide (Furosemide 40 Mg/4 Ml Vial) 40 mg IVPUSH DAILY [facility]; Protocol On Hold: 05/29/25 07:36 Last Admin: 05/28/25 09:29 Dose: 40 mg Documented By: JABIER Losartan Potassium (Losartan Potassium 50 Mg Tablet) 50 mg PO BID [facility]; Protocol Last Admin: 05/30/25 08:55 Dose: 50 mg Documented By: SOREN Magnesium Hydroxide (Milk Of Magnesia 30 Ml Oral.Susp) 30 ml PO DAILY PRN PRN Reason: Constipation Melatonin (Melatonin 3 Mg Tablet) 6 mg PO BEDTIME PRN PRN Reason: Insomnia Metoprolol Succinate (Metoprolol Succinate Er 12.5 Mg Halftab.Er.24h) 12.5 mg PO BID [facility]; Protocol Last Admin: 05/30/25 08:55 Dose: 12.5 mg Documented By: SOREN Omeprazole (Omeprazole 20 Mg Capsule.Dr) 20 mg PO DAILY@0630 [facility] Last Admin: 05/30/25 05:37 Dose: 20 mg Documented By: LAURENCE Ondansetron HCl (Ondansetron Hcl 4 Mg/2 Ml Vial) 4 mg IVPUSH Q8H PRN PRN Reason: Nausea and Vomiting Last Admin: 05/28/25 11:04 Dose: 4 mg Documented By: JABIER Sodium Chloride (0.9 % Sodium Chloride Flush 3 Ml Syringe) 3 ml IVFLUSH QSHIFT [facility] Last Admin: 05/30/25 08:55 Dose: 3 ml Documented By: SOREN Labs 05/28/25 05:00 05/30/25 05:53 Labs: Laboratory Results - last 24 hr 05/28/25 05/29/25 05/30/25 17:29 06:34 05:53 Anion Gap 10 L Estim Creat Clear Calc 21.9 Estimated GFR 41 Random Glucose 119 H Calcium 8.7 Magnesium 2.2 B-Natriuretic Peptide 1373 H 1030 H Respiratory Panel Chin See Note Adenovirus (Rapid PCR) Not Detected B.pert (TEM-PCR) Not Detected B.parapertussis DNA PCR Not Detected C. pneumoniae DNA (PCR) Not Detected Coronavirus OC43 (PCR) Not Detected Coronavirus HKU1 (PCR) Not Detected Coronavirus 229E (PCR) Not Detected Coronavirus NL63 (PCR) Not Detected Human Metapneumovir PCR Not Detected Influenza A (RT-PCR) Not Detected Influenza A (H1) PCR Not Detected Influ A (H1/09) PCR Not Detected Influenza A (H3) PCR Not Detected Influenza B (RT-PCR) Not Detected M. pneumoniae (PCR) Not Detected Parainfluenza 1 (PCR) Not Detected Parainfluenza 2 (PCR) Not Detected Parainfluenza 3 (PCR) Not Detected Parainfluenza 4 (PCR) Not Detected RSV (PCR) Not Detected Entero/Rhino (PCR) Not Detected SARS-CoV-2 RNA (RT-PCR) Not Detected Assessment and Plan (1) New onset of congestive heart failure: Status: Acute Plan d4 for 89yo F with chronic hypoxia due to COPD on 2L home O2, HTN, hx lung CA s/p LLLobectomy and lumbar radiculopathy presenting with 1 wk of exertional dyspnea and orthopnea and weakness, admitted for suspected CHF acute COPD exacerbation - started IV methylprednisolone 05/28-, change to PO prednisone 05/30- - nebs, Breo suspicious lung nodule - Pulm consulted, will see as outpt for PET/CT, possible biopsy acute/chronic HFpEF - diuresed with IV furosemide, neg negative 4100mL and now dry; hold further diuresis - continue losartan + metoprolol succinate ANGELA - suspect due to excess diuresis; improved; recheck BMP tomorrow AHRF - wean O2 as tolerated hypoNa - resolved AUR - doxazosin, Rae x48hr per Urology; voiding trial today HTN - continue metoprolol succinate + losartan VTE ppx - enoxaparin dispo - PT consult In my clinical judgment, the patient requires continued inpatient hospitalization for the following reasons: COPD Total time managing care of this patient today: 35 minutes. Quality Stroke Does the patient have a stroke diagnosis?: No VTE Prior VTE?: No VTE Risk Level:: Medical - moderate - high VTE Device Contraindication: Treatment Not Indicated VTE Drug Contraindication: N/A - Med Ordered
[2025-05-30] MEDS: Milk of Magnesia 30 ML ORAL.SUSP PO (12:11)
--- NOTE | 2025-05-30 13:03 | MHC.CM.PN ---
EMR REVIEWED AND PER MD ROUNDS, PT NOT YET MEDICALLY CLEARED FOR DC, AWAITING P.T. EVAL TO DETERMINE DC DISPOSITION/NEEDS. CM WILL CONTINUE TO FOLLOW
[2025-05-31] VITALS (9 sets, daily range): BP systolic 145–185; BP diastolic 67–81; PULSE 62–70; RESP 16–18; TEMP 36.7–37; O2SAT 92–93
[2025-05-31 06:41] LABS: Anion Gap 12 (12-20); Blood Urea Nitrogen 31 mg/dL (9-16); Calcium 8.9 mg/dL (8.4-10.2); Carbon Dioxide 27 mmol/L (22-29); Chloride 99 mmol/L (96-108); Creatinine Clr Calc Pharmacy 25.4; Estimated Glomerular Filt Rate 48; Potassium 5.9 mmol/L (3.3-5.1); Sodium 132 mmol/L (135-145)
[2025-05-31] MEDS: Fluticasone/Vilanterol 100/25 BLST.W.DEV 1 PUFF INHALE (07:43)
[2025-05-31] MEDS: Metoprolol Succinate ER 12.5 MG HALFTAB.ER.24H PO ×2 (08:40→20:42)
[2025-05-31] MEDS: 0.9 % Sodium Chloride Flush 3 ML SYRINGE IVFLUSH ×3 (08:41→20:43)
--- NOTE | 2025-05-31 10:04 | P.PNIM_ITS ---
Subjective Subjective Date of Service: 05/31/25 Interval History: breathing/wheezing improved no chest pain feels weak Review of Systems Review of Systems: Yes all other systems are reviewed and are negative Physical Exam 2 Vital Signs: Vital Signs: Last Vital Signs Temp 98.2 F 05/31/25 08:00 Pulse 62 05/31/25 08:00 Resp 18 05/31/25 08:00 BP 160/80 H 05/31/25 08:00 Pulse Ox 92 05/31/25 08:00 O2 Del Method Nasal Cannula 05/31/25 08:00 O2 Flow Rate 2.0 05/31/25 08:00 Oxygen Flow Rate 2.0 05/31/25 08:00 BMI result Body Mass Index 25.3 Gen: in no acute distress HEENT: sclera anicteric, moist mucus membranes Neck: supple Lungs: diminished Heart: regular rate and rhythm, no murmurs Abd: soft, non-tender, non-distended Ext: no leg edema Skin: warm/well-perfused Neuro: alert and oriented x3, no focal findings Psych: appropriate affect Objective Data Active Medications Acetaminophen (Acetaminophen 325 Mg Tablet) 650 mg PO Q6H PRN PRN Reason: Pain, Mild 1-3,fever,headache Last Admin: 05/29/25 14:19 Dose: 650 mg Documented By: SOREN Albuterol/Ipratropium (Albuterol/Iprat 2.5/0.5mg 3 Ml Ampul.Neb) 3 ml INHALE Q4H PRN PRN Reason: Shortness of Breath/Wheezing Benzonatate (Benzonatate 100 Mg Capsule) 100 mg PO TID PRN PRN Reason: Cough Last Admin: 05/31/25 05:06 Dose: 100 mg Documented By: JOSEPHINE Calcium Carbonate (Calcium Carbonate 750 Mg Tab.Chew) 750 mg PO Q4H PRN PRN Reason: Heartburn Doxazosin Mesylate (Doxazosin Mesylate 1 Mg Tablet) 0.5 mg PO BEDTIME [facility]; Protocol Last Admin: 05/30/25 21:39 Dose: 0.5 mg Documented By: JOSEPHINE Enoxaparin Sodium (Enoxaparin Sodium 30 Mg/0.3 Ml Syringe) 30 mg SUBCUT Q24H [facility] Last Admin: 05/30/25 21:41 Dose: 30 mg Documented By: JOSEPHINE Fluticasone/Vilanterol (Fluticasone/Vilanterol 100/25 Blst.W.Dev) 1 puff INHALE RDAILY [facility] Last Admin: 05/31/25 07:43 Dose: 1 puff Documented By: NITA Furosemide (Furosemide 40 Mg/4 Ml Vial) 40 mg IVPUSH DAILY [facility]; Protocol On Hold: 05/29/25 07:36 Last Admin: 05/28/25 09:29 Dose: 40 mg Documented By: JABIER Losartan Potassium (Losartan Potassium 50 Mg Tablet) 50 mg PO BID [facility]; Protocol On Hold: 05/31/25 07:36 Last Admin: 05/30/25 21:39 Dose: 50 mg Documented By: JOSEPHINE Magnesium Hydroxide (Milk Of Magnesia 30 Ml Oral.Susp) 30 ml PO DAILY PRN PRN Reason: Constipation Last Admin: 05/30/25 12:11 Dose: 30 ml Documented By: SOREN Melatonin (Melatonin 3 Mg Tablet) 6 mg PO BEDTIME PRN PRN Reason: Insomnia Metoprolol Succinate (Metoprolol Succinate Er 12.5 Mg Halftab.Er.24h) 12.5 mg PO BID [facility]; Protocol Last Admin: 05/31/25 08:40 Dose: 12.5 mg Documented By: JABIER Omeprazole (Omeprazole 20 Mg Capsule.Dr) 20 mg PO DAILY@0630 [facility] Last Admin: 05/31/25 05:05 Dose: 20 mg Documented By: JOSEPHINE Ondansetron HCl (Ondansetron Hcl 4 Mg/2 Ml Vial) 4 mg IVPUSH Q8H PRN PRN Reason: Nausea and Vomiting Last Admin: 05/28/25 11:04 Dose: 4 mg Documented By: JABIER Prednisone (Prednisone 10 Mg Tablet) 30 mg PO DAILY [facility] Last Admin: 05/31/25 08:40 Dose: 30 mg Documented By: JABIER Sodium Chloride (0.9 % Sodium Chloride Flush 3 Ml Syringe) 3 ml IVFLUSH QSHIFT [facility] Last Admin: 05/31/25 08:41 Dose: 3 ml Documented By: JABIER Labs 05/28/25 05:00 05/31/25 05:52 Labs: Laboratory Results - last 24 hr 05/31/25 05:52 Hold Purple Top SEE NOTE Anion Gap 12 Estim Creat Clear Calc 25.4 Estimated GFR 48 Random Glucose 105 Calcium 8.9 Hold Yellow Top See Note Assessment and Plan (1) New onset of congestive heart failure: Status: Acute Plan d5 for 89yo F with chronic hypoxia due to COPD on 2L home O2, HTN, hx lung CA s/p LLLobectomy and lumbar radiculopathy presenting with 1 wk of exertional dyspnea and orthopnea and weakness, admitted for suspected CHF acute COPD exacerbation - started IV methylprednisolone 05/28-, changed to PO prednisone 05/30- and continue to taper - nebs, Breo suspicious lung nodule - Pulm consulted, will see as outpt for PET/CT, possible biopsy acute/chronic HFpEF, R-sided HF - diuresed with IV furosemide, neg negative 4290mL and now euvolemic; hold further diuresis - metoprolol succinate - TTE 05/28: - The left ventricular systolic function is hyperdynamic. The visually estimated ejection fraction is >70%. - There is moderate mitral annular calcification. - There is moderate tricuspid valve regurgitation. - The right ventricular systolic pressure is 88 mmHg. Severe pulmonary hypertension is present. ANGELA - suspect due to excess diuresis; resolved hyperK - hold losartan, give Lokelma, recheck BMP tomorrow AHRF - wean O2 as tolerated hypoNa - mild AUR - doxazosin, Rae out, passed voiding trial HTN - continue metoprolol succinate; hold losartan as above VTE ppx - enoxaparin dispo - PT consulted: STR In my clinical judgment, the patient requires continued inpatient hospitalization for the following reasons: hyperK, placement Total time managing care of this patient today: 35 minutes. Quality Stroke Does the patient have a stroke diagnosis?: No VTE Prior VTE?: No VTE Risk Level:: Medical - moderate - high VTE Device Contraindication: Treatment Not Indicated VTE Drug Contraindication: N/A - Med Ordered
[2025-05-31] MEDS: Milk of Magnesia 30 ML ORAL.SUSP PO (16:40)
[2025-06-01 06:19] LABS: Hematocrit 34.5 % (37.0-47.0); Hemoglobin 11.3 g/dl (12.0-16.0); Mean Corpuscular HGB Conc 32.8 g/dl (31.0-35.0); Mean Corpuscular Hemoglobin 27.0 pg (27.0-33.0); Mean Corpuscular Volume 82.3 fL (80.0-98.0); NRBC Abs Auto 0.020 X10*3/uL (0.0-0.012); NRBC Pct Auto 0.1 /100WBC (0.0-0.2); Platelet Count 194 X10*3/uL (160-400); Red Blood Count 4.19 X10*6/uL (4.20-5.50); White Blood Count 15.7 X10*3/uL (4.8-10.8)
[2025-06-01 06:32] LABS: Anion Gap 12 (12-20); Blood Urea Nitrogen 34 mg/dL (9-16); Calcium 8.8 mg/dL (8.4-10.2); Carbon Dioxide 29 mmol/L (22-29); Chloride 99 mmol/L (96-108); Creatinine Clr Calc Pharmacy 30.2; Estimated Glomerular Filt Rate 59; Potassium 5.5 mmol/L (3.3-5.1); Sodium 134 mmol/L (135-145)
[2025-06-01 07:15] VITALS: BP 142/58; PULSE 77; RESP 16; TEMP 36.9; O2SAT 97
[2025-06-01] MEDS: Fluticasone/Vilanterol 100/25 BLST.W.DEV 1 PUFF INHALE (07:39)
[2025-06-01 07:41] VITALS: PULSE 57; RESP 18; O2SAT 91
[2025-06-01] MEDS: 0.9 % Sodium Chloride Flush 3 ML SYRINGE IVFLUSH ×3 (08:39→20:57)
[2025-06-01] MEDS: Metoprolol Succinate ER 12.5 MG HALFTAB.ER.24H PO ×2 (08:39→20:55)
--- NOTE | 2025-06-01 10:35 | HO.PM.IMPN ---
Subjective Subjective Date of Service: 06/01/25 Interval History: breathing slightly improved Review of Systems Review of Systems: Yes all other systems are reviewed and are negative Physical Exam Vital Signs: Vital Signs: Last Vital Signs Temp 98.5 F 06/01/25 07:15 Pulse 57 06/01/25 07:41 Resp 18 06/01/25 07:41 BP 142/58 H 06/01/25 07:15 Pulse Ox 97 06/01/25 07:15 O2 Del Method Nasal Cannula 06/01/25 07:15 O2 Flow Rate 2.0 06/01/25 07:15 Oxygen Flow Rate 2.0 05/31/25 08:00 BMI result Body Mass Index 25.3 Gen: in no acute distress HEENT: sclera anicteric, moist mucus membranes Neck: supple Lungs: diminished Heart: regular rate and rhythm, no murmurs Abd: soft, non-tender, non-distended Ext: no leg edema Skin: warm/well-perfused Neuro: alert and oriented x3, no focal findings Psych: appropriate affect Objective Data Active Medications Acetaminophen (Acetaminophen 325 Mg Tablet) 650 mg PO Q6H PRN PRN Reason: Pain, Mild 1-3,fever,headache Last Admin: 05/29/25 14:19 Dose: 650 mg Documented By: SOREN Albuterol/Ipratropium (Albuterol/Iprat 2.5/0.5mg 3 Ml Ampul.Neb) 3 ml INHALE Q4H PRN PRN Reason: Shortness of Breath/Wheezing Benzonatate (Benzonatate 100 Mg Capsule) 100 mg PO TID PRN PRN Reason: Cough Last Admin: 06/01/25 10:17 Dose: 100 mg Documented By: JABIER Calcium Carbonate (Calcium Carbonate 750 Mg Tab.Chew) 750 mg PO Q4H PRN PRN Reason: Heartburn Doxazosin Mesylate (Doxazosin Mesylate 1 Mg Tablet) 0.5 mg PO BEDTIME VIRY; Protocol Last Admin: 05/31/25 20:39 Dose: 0.5 mg Documented By: AUSTIN Enoxaparin Sodium (Enoxaparin Sodium 30 Mg/0.3 Ml Syringe) 30 mg SUBCUT Q24H VIRY Last Admin: 05/31/25 20:42 Dose: 30 mg Documented By: AUSTIN Fluticasone/Vilanterol (Fluticasone/Vilanterol 100/25 Blst.W.Dev) 1 puff INHALE RDAILY [facility] Last Admin: 06/01/25 07:39 Dose: 1 puff Documented By: TIAGO Furosemide (Furosemide 40 Mg/4 Ml Vial) 40 mg IVPUSH DAILY [facility]; Protocol On Hold: 05/29/25 07:36 Last Admin: 05/28/25 09:29 Dose: 40 mg Documented By: JABIER Losartan Potassium (Losartan Potassium 50 Mg Tablet) 50 mg PO BID [facility]; Protocol On Hold: 05/31/25 07:36 Last Admin: 05/30/25 21:39 Dose: 50 mg Documented By: JOSEPHINE Magnesium Hydroxide (Milk Of Magnesia 30 Ml Oral.Susp) 30 ml PO DAILY PRN PRN Reason: Constipation Last Admin: 05/31/25 16:40 Dose: 30 ml Documented By: JABIER Melatonin (Melatonin 3 Mg Tablet) 6 mg PO BEDTIME PRN PRN Reason: Insomnia Metoprolol Succinate (Metoprolol Succinate Er 12.5 Mg Halftab.Er.24h) 12.5 mg PO BID [facility]; Protocol Last Admin: 06/01/25 08:39 Dose: 12.5 mg Documented By: JABIER Omeprazole (Omeprazole 20 Mg Capsule.Dr) 20 mg PO DAILY@0630 [facility] Last Admin: 06/01/25 05:58 Dose: 20 mg Documented By: AUSTIN Ondansetron HCl (Ondansetron Hcl 4 Mg/2 Ml Vial) 4 mg IVPUSH Q8H PRN PRN Reason: Nausea and Vomiting Last Admin: 05/28/25 11:04 Dose: 4 mg Documented By: JABIER Prednisone (Prednisone 10 Mg Tablet) 30 mg PO DAILY [facility] Last Admin: 06/01/25 08:39 Dose: 30 mg Documented By: JABIER Sodium Chloride (0.9 % Sodium Chloride Flush 3 Ml Syringe) 3 ml IVFLUSH QSHIFT [facility] Last Admin: 06/01/25 08:39 Dose: 3 ml Documented By: JABIER Labs 06/01/25 06:07 06/01/25 06:07 Labs: Laboratory Results - last 24 hr 06/01/25 06:07 MCV 82.3 MCH 27.0 MCHC 32.8 RDW 17.1 H Plt Count 194 MPV 11.0 Absolute Nucleated RBC 0.020 H Nucleated RBC % (auto) 0.1 Anion Gap 12 Estim Creat Clear Calc 30.2 Estimated GFR 59 Random Glucose 84 Calcium 8.8 Assessment and Plan (1) New onset of congestive heart failure: Status: Acute Plan d6 for 89yo F with chronic hypoxia due to COPD on 2L home O2, HTN, hx lung CA s/p LLLobectomy and lumbar radiculopathy presenting with 1 wk of exertional dyspnea and orthopnea and weakness, admitted for suspected CHF acute COPD exacerbation - started IV methylprednisolone 05/28-, changed to PO prednisone 05/30- and continue to taper - nebs, Breo suspicious lung nodule - Pulm consulted, will see as outpt for PET/CT, possible biopsy acute/chronic HFpEF, R-sided HF - diuresed with IV furosemide, neg negative 4.67L and now euvolemic; hold further diuresis - metoprolol succinate - TTE 05/28: - The left ventricular systolic function is hyperdynamic. The visually estimated ejection fraction is >70%. - There is moderate mitral annular calcification. - There is moderate tricuspid valve regurgitation. - The right ventricular systolic pressure is 88 mmHg. Severe pulmonary hypertension is present. ANGELA - suspect due to excess diuresis; resolved mild hyperK - continue to hold losartan, give another dose of Lokelma, recheck BMP later today AHRF - wean O2 as tolerated hypoNa - mild, resolving AUR - doxazosin, Rae out, passed voiding trial HTN - continue metoprolol succinate; hold losartan as above VTE ppx - enoxaparin dispo - PT consulted: [facility] In my clinical judgment, the patient requires continued inpatient hospitalization for the following reasons: hyperK, placement Total time managing care of this patient today: 35 minutes. Quality Stroke Does the patient have a stroke diagnosis?: No VTE Prior VTE?: No VTE Risk Level:: Medical - moderate - high VTE Device Contraindication: Treatment Not Indicated VTE Drug Contraindication: N/A - Med Ordered
--- NOTE | 2025-06-01 10:48 | P.DS_ITS ---
DS: Providers Provider Date of admission: 05/27/25 20:46 Primary care physician: Aurelia Mendoza MD Consults: 05/27/25 21:00 Consult to Cardiology Routine Consulting Provider: [facility] [place] [place] [facility] Reason for consultation: CHF, new onset Has provider been notified: Yes 05/28/25 05:44 Consult to Urology Routine Consulting Provider: [facility] [place] [place] [facility] Reason for consultation: urinary retention 05/28/25 09:01 Consult to Wound Care Routine Reason for consultation: PI kirtiyx 05/29/25 11:54 Consult to Pulmonology Routine Consulting Provider: [facility] [place] [place] [facility] Reason for consultation: irregular spiculated nodule in the RUL; Gosia pt; hx lung CA DS: Diagnosis Discharge Diagnosis (1) New onset of congestive heart failure: Status: Acute (2) Pulmonary hypertension: Status: Acute (3) COPD exacerbation: Status: Acute (4) Acute kidney failure: Status: Acute (5) Hyperkalemia: Status: Acute (6) Acute urinary retention: Status: Acute DS: Summary Hospital Course Hospital Course: From the history and physical by the admitting hospitalist, Gama Mohr MD, 05/27/25: This has a 89-year-old female with pertinent history of chronic hypoxemic respiratory failure due to COPD on baseline supplemental oxygen while ambulation, lumbar radiculopathy, hypertension who presents to the emergency department for evaluation of dyspnea. Patient states her symptoms started about a week prior to presentation. She has been having dyspnea which has been progressive and worse with exertion. Also admits orthopnea. Patient complains of malaise and easy fatigability. She has been weak overall. Does use supplemental oxygen 2 L while ambulation for COPD. No wheezing or cough. No fever or chills. She denies chest pain, palpitations, abdominal pain, changes in urinary or bowel habits. In the emergency department, BNP found to be elevated and patient requiring 6 L supplemental oxygen. 89yo F with chronic hypoxia due to COPD on 2L home O2, HTN, hx lung CA s/p RLL lobectomy and lumbar radiculopathy presenting with 1 wk of exertional dyspnea and orthopnea and weakness, admitted for suspected CHF. Hospital course by problem: acute COPD exacerbation - Started IV methylprednisolone 05/28-, changed to PO prednisone 05/30- and continue to taper upon discharge. suspicious lung nodule - Noted on CT scan: irregular spiculated nodule in the right upper lobe measuring 11 x 6 x 11 mm. Pulmonology consulted, will see as outpt for PET/CT, possible biopsy. acute/chronic HFpEF, R-sided HF - diuresed with IV furosemide, net negative 4.67L, started on PO furosemide upon discharge. - metoprolol succinate - TTE 05/28: - The left ventricular systolic function is hyperdynamic. The visually estimated ejection fraction is >70%. - There is moderate mitral annular calcification. - There is moderate tricuspid valve regurgitation. - The right ventricular systolic pressure is 88 mmHg. Severe pulmonary hypertension is present. ANGELA - suspect due to excess diuresis; resolved mild hyperK - resolved after discontinuing losartan and giving Lokelma AHRF - wean O2 as tolerated hypoNa - mild, resolving AUR - given doxazosin and Rae placed; resolved and passed voiding trial She was discharged to short-term rehabilitation and will need Pulmonology follow-up as above. Time Attestation Discharge Coordination Time (in mins): 45 Quality: Safe Use of Opioids Does Pt have an Active Cancer Diagnosis on the Problem List?: No Quality: Stroke Does the patient have a stroke diagnosis?: No Physical Exam Vital Signs: Vital Signs: Last Vital Signs Temp 98.5 F 06/01/25 07:15 Pulse 57 06/01/25 07:41 Resp 18 06/01/25 07:41 BP 142/58 H 06/01/25 07:15 Pulse Ox 97 06/01/25 07:15 O2 Del Method Nasal Cannula 06/01/25 07:15 O2 Flow Rate 2.0 06/01/25 07:15 Oxygen Flow Rate 2.0 05/31/25 08:00 BMI result Body Mass Index 25.3 Gen: in no acute distress HEENT: sclera anicteric, moist mucus membranes Neck: supple Lungs: diminished Heart: regular rate and rhythm, no murmurs Abd: soft, non-tender, non-distended Ext: no edema Skin: warm/well-perfused Neuro: alert and oriented x3, no focal findings Psych: appropriate affect Discharge Plan Discharge Anticipated Discharge Date/Time: 06/01/25 10:41 Patient Disposition: Xfer SNF Discharge Diagnosis: COPD R-sided CHF hyperkalemia suspicious pulmonary nodule Referrals: [facility] [place] [place] [facility] [Provider Group, Pulmonology] - 2 Weeks Aurelia Mendoza MD [Primary Care Provider, Endocrinology] - 1 Week Discharge Medications: New ipratropium-albuterol 0.5 mg-3 mg(2.5 mg base)/3 mL Solution For Nebulization 3 ml inhalation Q4H PRN (Reason: Shortness Of Breath/Wheezing) Qty: 1 0RF prednisone 10 mg tablet See Rx Instructions .ROUTE .COMPLEX Qty: 7 0RF Rx Instructions: 20 mg (2 tabs) daily for 2 days, then 10 mg (1 tab) daily for 2 days, then 5 mg (half tab) daily for 2 days furosemide 20 mg tablet 20 mg PO QAM Qty: 30 0RF Continued hydrocodone-homatropine 5-1.5 mg/5 mL solution 5 ml PO QID PRN (Reason: cough) Qty: 600 0RF Rx Instructions: Patient may pay out pocket omeprazole 20 mg Capsule,Delayed Release(Dr/Ec) 20 mg PO DAILY@0630 metoprolol succinate 25 mg tablet extended release 24 hr 12.5 mg PO BID Breo Ellipta 100-25 mcg/dose blister with device 1 ea inhalation DAILY Qty: 3 3RF acetaminophen 650 mg tablet extended release 650 mg PO TID Discontinued losartan 50 mg tablet 50 mg PO BID Qty: 180 3RF Diet: Low salt diet Activity on Discharge: As tolerated Stand Alone Forms: Patient Portal Discharge page Print Language: [place] Care Plan Goals: lung health Health Concerns: COPD R-sided CHF hyperkalemia suspicious pulmonary nodule Plan of Treatment: to short-term rehabilitation prednisone taper as follows: 20 mg (2 tabs) daily for 2 days, then 10 mg (1 tab) daily for 2 days, then 5 mg (half tab) daily for 2 days start furosemide 20 mg once daily Low-sodium diet: less than 2000 mg of sodium daily. Weigh yourself daily and call your doctor if your weight goes up by more than 3 lb/day or 5 lb/week. stop losartan due to hyperkalemia follow up with [facility] [place] [place] Pulmonology in 2 weeks for workup of nodule in lung suspicious for cancer Please follow up with your primary care doctor within 1 week of discharge from rehabilitation. Return to the hospital if you experience recurrent or worsening symptoms. Assessment: See Discharge Summary.
--- NOTE | 2025-06-01 12:17 | MHC.CM.PN ---
PT MEDICALLY STABLE FOR DC TO [facility], HOWEVER HAS NO BED OFFERS AT THIS TIME [facility] FOLLOWING, HOWEVER CONCERNED ABOUT PTS ONCOLOGY F/U PLAN PER PT, SHE WILL NOT BE FOLLOWING UP FOR BIOPSY/TREATMENT UNTIL AFTER [facility] UPDATED
[2025-06-01 12:46] LABS: Anion Gap 11 (12-20); Blood Urea Nitrogen 31 mg/dL (9-16); Calcium 8.7 mg/dL (8.4-10.2); Carbon Dioxide 28 mmol/L (22-29); Chloride 97 mmol/L (96-108); Creatinine Clr Calc Pharmacy 30.2; Estimated Glomerular Filt Rate 59; Potassium 4.8 mmol/L (3.3-5.1); Sodium 131 mmol/L (135-145)
[2025-06-01 15:19] VITALS: BP 135/63; PULSE 88; RESP 18; TEMP 36.7; O2SAT 92
[2025-06-01 20:50] VITALS: BP 138/70
[2025-06-01 23:31] VITALS: BP 137/63; PULSE 62; RESP 18; TEMP 36.8; O2SAT 95
[2025-06-02 03:56] VITALS: BP 104/77; PULSE 61; RESP 12; TEMP 36.1; O2SAT 98
[2025-06-02 07:57] VITALS: BP 176/82; PULSE 54; RESP 16; TEMP 36.6; O2SAT 95
--- NOTE | 2025-06-02 08:00 | PC.RT ---
PT HAS BEEN REFUSING BIPAP FOR MORE THAN 3 DAYS. THEREFORE ORDER WILL BE DC'D PER POLICY
[2025-06-02] MEDS: Fluticasone/Vilanterol 100/25 BLST.W.DEV 1 PUFF INHALE (08:05)
[2025-06-02 08:08] VITALS: PULSE 54; RESP 16
[2025-06-02] MEDS: Metoprolol Succinate ER 12.5 MG HALFTAB.ER.24H PO ×2 (08:34→20:07)
[2025-06-02] MEDS: 0.9 % Sodium Chloride Flush 3 ML SYRINGE IVFLUSH ×3 (08:35→20:14)
[2025-06-02] MEDS: guaiFEN/Codeine SF 200/20/10ML 10 ML LIQUID PO ×2 (10:48→16:23)
--- NOTE | 2025-06-02 11:30 | MHC.CM.PN ---
Per MD rounds patient medically cleared for dc to pulm rehab. Patient accepted a bed at [facility], who will submit for auth.
--- NOTE | 2025-06-02 14:12 | HO.PM.IMPN ---
Subjective Subjective Date of Service: 06/02/25 Interval History: No acute issues overnight. Still with nonproductive/dry cough Review of Systems Denies chest pain Denies shortness of breath Admits to cough that is nonproductive Denies nausea vomiting diarrhea Denies fever chills Physical Exam Vital Signs: Vital Signs: Last Vital Signs Temp 97.8 F 06/02/25 07:57 Pulse 54 06/02/25 08:08 Resp 16 06/02/25 08:08 BP 176/82 H 06/02/25 07:57 Pulse Ox 95 06/02/25 07:57 O2 Del Method Room Air 06/02/25 07:57 O2 Flow Rate 2 06/02/25 03:56 Oxygen Flow Rate 2.0 05/31/25 08:00 BMI result Body Mass Index 25.3 Const: Other: Awake alert oriented x3 in no acute distress Resp: Other: Diminished at bases with scattered expiratory wheezes Cardio: Other: No S4; positive S1-S2; no S3 murmurs rubs or gallops GI: Other: Soft nontender nondistended normoactive bowel sounds Extrem: Other: No edema bilaterally Objective Data Active Medications Acetaminophen (Acetaminophen 325 Mg Tablet) 650 mg PO Q6H PRN PRN Reason: Pain, Mild 1-3,fever,headache Last Admin: 05/29/25 14:19 Dose: 650 mg Documented By: SOREN Albuterol/Ipratropium (Albuterol/Iprat 2.5/0.5mg 3 Ml Ampul.Neb) 3 ml INHALE Q4H PRN PRN Reason: Shortness of Breath/Wheezing Benzonatate (Benzonatate 100 Mg Capsule) 100 mg PO TID PRN PRN Reason: Cough Last Admin: 06/02/25 05:40 Dose: 100 mg Documented By: JOMAR Bisacodyl (Bisacodyl 5 Mg Tablet.Dr) 10 mg PO BEDTIME PRN PRN Reason: Constipation Calcium Carbonate (Calcium Carbonate 750 Mg Tab.Chew) 750 mg PO Q4H PRN PRN Reason: Heartburn Doxazosin Mesylate (Doxazosin Mesylate 1 Mg Tablet) 0.5 mg PO BEDTIME VIRY; Protocol Last Admin: 06/01/25 20:55 Dose: 0.5 mg Documented By: JOMAR Enoxaparin Sodium (Enoxaparin Sodium 30 Mg/0.3 Ml Syringe) 30 mg SUBCUT Q24H [facility] Last Admin: 06/01/25 20:59 Dose: 30 mg Documented By: JOMAR Fluticasone/Vilanterol (Fluticasone/Vilanterol 100/25 Blst.W.Dev) 1 puff INHALE RDAILY [facility] Last Admin: 06/02/25 08:05 Dose: 1 puff Documented By: MARYBEL Furosemide (Furosemide 40 Mg/4 Ml Vial) 40 mg IVPUSH DAILY [facility]; Protocol On Hold: 05/29/25 07:36 Last Admin: 05/28/25 09:29 Dose: 40 mg Documented By: JABIER Guaifenesin/Codeine Phosphate (Guaifen/Codeine Sf 200/20/10ml 10 Ml Liquid) 10 ml PO Q4H PRN PRN Reason: Cough Last Admin: 06/02/25 10:48 Dose: 10 ml Documented By: SOREN Losartan Potassium (Losartan Potassium 50 Mg Tablet) 50 mg PO BID [facility]; Protocol On Hold: 05/31/25 07:36 Last Admin: 05/30/25 21:39 Dose: 50 mg Documented By: JOSEPHINE Magnesium Hydroxide (Milk Of Magnesia 30 Ml Oral.Susp) 30 ml PO DAILY PRN PRN Reason: Constipation Last Admin: 05/31/25 16:40 Dose: 30 ml Documented By: JABIER Melatonin (Melatonin 3 Mg Tablet) 6 mg PO BEDTIME PRN PRN Reason: Insomnia Metoprolol Succinate (Metoprolol Succinate Er 12.5 Mg Halftab.Er.24h) 12.5 mg PO BID [facility]; Protocol Last Admin: 06/02/25 08:34 Dose: 12.5 mg Documented By: SOREN Omeprazole (Omeprazole 20 Mg Capsule.Dr) 20 mg PO DAILY@0630 [facility] Last Admin: 06/02/25 05:36 Dose: 20 mg Documented By: JOMAR Ondansetron HCl (Ondansetron Hcl 4 Mg/2 Ml Vial) 4 mg IVPUSH Q8H PRN PRN Reason: Nausea and Vomiting Last Admin: 06/02/25 13:38 Dose: 4 mg Documented By: SOREN Polyethylene Glycol (Polyethylene Glycol 3350 17 Gm Powd.Pack) 17 gm PO DAILY [facility] Last Admin: 06/02/25 08:34 Dose: 17 gm Documented By: SOREN Prednisone (Prednisone 20 Mg Tablet) 20 mg PO DAILY [facility] Last Admin: 06/02/25 08:34 Dose: 20 mg Documented By: SOREN Senna/Docusate Sodium (Sennosides/Docusate Sodium Tablet) 2 tab PO BID [facility] Last Admin: 06/02/25 08:34 Dose: 2 tab Documented By: SOREN Sodium Chloride (0.9 % Sodium Chloride Flush 3 Ml Syringe) 3 ml IVFLUSH QSHIFT [facility] Last Admin: 06/02/25 08:35 Dose: 3 ml Documented By: SOREN Labs 06/01/25 06:07 06/01/25 12:14 Assessment and Plan (1) COPD exacerbation: Status: Acute (2) Acute urinary retention: Status: Acute Plan 89yo F with chronic hypoxia due to COPD on 2L home O2, HTN, hx lung CA s/p LLLobectomy and lumbar radiculopathy presenting with 1 wk of exertional dyspnea and orthopnea and weakness, admitted for suspected CHF 1.Acute COPD exacerbation - continue prednisone taper as outlined - nebs Breo -continue to titrate O2 to home levels 2.Suspicious lung nodule -outpatient follow up 3.Acute/chronic HFpEF, R-sided HF - good response to IV Lasix -now stable and well compensated - TTE 05/28: - The left ventricular systolic function is hyperdynamic. The visually estimated ejection fraction is >70%. - There is moderate mitral annular calcification. - There is moderate tricuspid valve regurgitation. - The right ventricular systolic pressure is 88 mmHg. Severe pulmonary hypertension is present. 4.ANGELA -responded well to volume -follow renals/divalents 5.HTN -add back losartan/follow clinicall enoxaparin DNR/DNI dispo - PT consulted: KALYANI In my clinical judgment, the patient requires continued inpatient hospitalization for the following reasons: placement Quality Stroke Does the patient have a stroke diagnosis?: No VTE Prior VTE?: No VTE Risk Level:: Medical - moderate - high VTE Device Contraindication: Treatment Not Indicated VTE Drug Contraindication: N/A - Med Ordered
[2025-06-02 15:35] VITALS: BP 148/67; PULSE 68; RESP 16; TEMP 36.7; O2SAT 93
[2025-06-02 20:09] VITALS: BP 140/64
[2025-06-02 23:27] VITALS: BP 177/79; PULSE 62; RESP 16; TEMP 36.2; O2SAT 97
[2025-06-03 00:06] VITALS: BP 162/74
[2025-06-03 06:13] LABS: Alanine Aminotransferase 14 U/L (0-31); Albumin Level 3.3 g/dL (3.5-5.0); Alkaline Phosphatase 44 U/L (39-117); Anion Gap 12 (12-20); Aspartate Amino Transferase 21 U/L (5-31); Blood Urea Nitrogen 30 mg/dL (9-16); Calcium 8.6 mg/dL (8.4-10.2); Carbon Dioxide 28 mmol/L (22-29); Chloride 100 mmol/L (96-108); Creatinine Clr Calc Pharmacy 29.6; Estimated Glomerular Filt Rate 58; Potassium 4.9 mmol/L (3.3-5.1); Sodium 135 mmol/L (135-145); Total Protein 5.8 g/dL (6.5-8.0)
[2025-06-03 06:17] LABS: Hematocrit 34.9 % (37.0-47.0); Hemoglobin 11.6 g/dl (12.0-16.0); Imm Gran Abs Auto 0.14 X10*3/uL (0.00-0.03); Imm Gran Pct Auto 1.1 % (0.0-0.4); Lymphocytes Absolute Auto 2.8 X10*3/uL (1.2-4.9); MANUAL DIFF FLAG SCAN; Mean Corpuscular HGB Conc 33.2 g/dl (31.0-35.0); Mean Corpuscular Hemoglobin 26.9 pg (27.0-33.0); Mean Corpuscular Volume 81.0 fL (80.0-98.0); NRBC Abs Auto 0.000 X10*3/uL (0.0-0.012); NRBC Pct Auto 0.0 /100WBC (0.0-0.2); Platelet Count 216 X10*3/uL (160-400); Red Blood Count 4.31 X10*6/uL (4.20-5.50); SCAN SMEAR FLAG 1; White Blood Count 12.6 X10*3/uL (4.8-10.8)
[2025-06-03] MEDS: Fluticasone/Vilanterol 100/25 BLST.W.DEV 1 PUFF INHALE (07:44)
[2025-06-03 07:46] VITALS: BP 179/82; PULSE 58; PULSE 62; RESP 16; TEMP 36; O2SAT 92; O2SAT 94
[2025-06-03] MEDS: Metoprolol Succinate ER 12.5 MG HALFTAB.ER.24H PO (08:03)
[2025-06-03] MEDS: guaiFEN/Codeine SF 200/20/10ML 10 ML LIQUID PO (08:03)
[2025-06-03] MEDS: 0.9 % Sodium Chloride Flush 3 ML SYRINGE IVFLUSH (08:03)
--- NOTE | 2025-06-03 10:30 | MHC.CM.PN ---
Addendum entered by Cristel Julian RN 06/03/25 10:35: Son, Vinicius, also notified per patient request. Original Note: [facility] has obtained auth. Per , medically cleared for dc. S transport schedule for 2pm. , RN, and patient aware.
[2025-06-03 11:32] VITALS: BP 119/58; PULSE 68; RESP 18; O2SAT 91
--- NOTE | 2025-06-03 12:53 | PM.DS ---
DS: Providers Provider Date of Service: 06/03/25 Date of admission: 05/27/25 20:46 Date of discharge: 06/03/25 Primary care physician: Aurelia Mendoza MD Consults: 05/27/25 21:00 Consult to Cardiology Routine Consulting Provider: [facility] Reason for consultation: CHF, new onset Has provider been notified: Yes 05/28/25 05:44 Consult to Urology Routine Consulting Provider: [facility] Reason for consultation: urinary retention 05/28/25 09:01 Consult to Wound Care Routine Reason for consultation: PI coccyx 05/29/25 11:54 Consult to Pulmonology Routine Consulting Provider: [facility] Reason for consultation: irregular spiculated nodule in the RUL; Gosia pt; hx lung CA DS: Diagnosis Discharge Diagnosis (1) COPD exacerbation: Status: Acute (2) Acute urinary retention: Status: Acute DS: Summary Hospital Course Hospital Course: From the history and physical by the admitting hospitalist, Gama Mohr MD, 05/27/25: This has a 89-year-old female with pertinent history of chronic hypoxemic respiratory failure due to COPD on baseline supplemental oxygen while ambulation, lumbar radiculopathy, hypertension who presents to the emergency department for evaluation of dyspnea. Patient states her symptoms started about a week prior to presentation. She has been having dyspnea which has been progressive and worse with exertion. Also admits orthopnea. Patient complains of malaise and easy fatigability. She has been weak overall. Does use supplemental oxygen 2 L while ambulation for COPD. No wheezing or cough. No fever or chills. She denies chest pain, palpitations, abdominal pain, changes in urinary or bowel habits. In the emergency department, BNP found to be elevated and patient requiring 6 L supplemental oxygen. 89yo F with chronic hypoxia due to COPD on 2L home O2, HTN, hx lung CA s/p RLL lobectomy and lumbar radiculopathy presenting with 1 wk of exertional dyspnea and orthopnea and weakness, admitted for suspected CHF. Hospital course by problem: acute COPD exacerbation - Started IV methylprednisolone 05/28-, changed to PO prednisone 05/30- and continue to taper upon discharge. suspicious lung nodule - Noted on CT scan: irregular spiculated nodule in the right upper lobe measuring 11 x 6 x 11 mm. Pulmonology consulted, will see as outpt for PET/CT, possible biopsy. acute/chronic HFpEF, R-sided HF - diuresed with IV furosemide, net negative 4.67L, started on PO furosemide upon discharge. - metoprolol succinate - TTE 05/28: - The left ventricular systolic function is hyperdynamic. The visually estimated ejection fraction is >70%. - There is moderate mitral annular calcification. - There is moderate tricuspid valve regurgitation. - The right ventricular systolic pressure is 88 mmHg. Severe pulmonary hypertension is present. ANGELA - suspect due to excess diuresis; resolved mild hyperK - resolved after discontinuing losartan and giving Lokelma AHRF - wean O2 as tolerated hypoNa - mild, resolving AUR - given doxazosin and Rae placed; resolved and passed voiding trial She was discharged to short-term rehabilitation and will need Pulmonology follow-up as above. Time Attestation Discharge Coordination Time (in mins): 35 Quality: Safe Use of Opioids Does Pt have an Active Cancer Diagnosis on the Problem List?: No Quality: Stroke Does the patient have a stroke diagnosis?: No Physical Exam Vital Signs: Vital Signs: Last Vital Signs Temp 96.8 F 06/03/25 07:46 Pulse 68 06/03/25 11:32 Resp 18 06/03/25 11:32 BP 119/58 L 06/03/25 11:32 Pulse Ox 91 L 06/03/25 11:32 O2 Del Method Nasal Cannula 06/03/25 11:32 O2 Flow Rate 2 06/03/25 11:32 Oxygen Flow Rate 2.0 05/31/25 08:00 BMI result Body Mass Index 25.3 Const: Other: Awake alert oriented x3 in no acute distress Resp: Other: Diminished at bases with scattered expiratory wheezes Cardio: Other: No S4; positive S1-S2; no S3 murmurs rubs or gallops GI: Other: Soft nontender nondistended normoactive bowel sounds Extrem: Other: No edema bilaterally DS: Data Data Completed and Pending Labs on day of discharge: Laboratory Results - last 24 hr 06/03/25 05:46 WBC 12.6 H RBC 4.31 Hgb 11.6 L Hct 34.9 L MCV 81.0 MCH 26.9 L MCHC 33.2 RDW 16.9 H Plt Count 216 MPV 11.0 Immature Gran % (Auto) 1.1 H Neut % (Auto) 62.5 Lymph % (Auto) 22.1 Peach % (Auto) 13.0 H Eos % (Auto) 1.1 Baso % (Auto) 0.2 Lymph # (Auto) 2.8 Peach # (Auto) 1.6 H Eos # (Auto) 0.1 Baso # (Auto) 0.0 Abs Immat Gran (auto) 0.14 H Absolute Neuts (auto) 7.9 Absolute Nucleated RBC 0.000 Nucleated RBC % (auto) 0.0 Smear Tech's Comments VERIFIED Sodium 135 Potassium 4.9 Chloride 100 Carbon Dioxide 28 Anion Gap 12 BUN 30 H Creatinine 0.92 Estim Creat Clear Calc 29.6 Estimated GFR 58 Fasting Glucose 83 Calcium 8.6 Total Bilirubin 0.5 AST 21 ALT 14 Alkaline Phosphatase 44 Total Protein 5.8 L Albumin 3.3 L Discharge Plan Discharge Anticipated Discharge Date/Time: 06/03/25 12:52 Patient Disposition: Xfer SNF Discharge Diagnosis: COPD R-sided CHF hyperkalemia suspicious pulmonary nodule Referrals: [facility] [Provider Group, Pulmonology] - 2 Weeks [facility] [Outside] - 1 Day Referral Note: short term rehab Aurelia Mendoza MD [Primary Care Provider, Endocrinology] - 1 Week Discharge Medications: New ipratropium-albuterol 0.5 mg-3 mg(2.5 mg base)/3 mL Solution For Nebulization 3 ml inhalation Q4H PRN (Reason: Shortness Of Breath/Wheezing) Qty: 1 0RF prednisone 10 mg tablet See Rx Instructions .ROUTE .COMPLEX Qty: 7 0RF Rx Instructions: 20 mg (2 tabs) daily for 2 days, then 10 mg (1 tab) daily for 2 days, then 5 mg (half tab) daily for 2 days furosemide 20 mg tablet 20 mg PO QAM Qty: 30 0RF Continued hydrocodone-homatropine 5-1.5 mg/5 mL solution 5 ml PO QID PRN (Reason: cough) Qty: 600 0RF Rx Instructions: Patient may pay out pocket omeprazole 20 mg Capsule,Delayed Release(Dr/Ec) 20 mg PO DAILY@0630 metoprolol succinate 25 mg tablet extended release 24 hr 12.5 mg PO BID Breo Ellipta 100-25 mcg/dose blister with device 1 ea inhalation DAILY Qty: 3 3RF acetaminophen 650 mg tablet extended release 650 mg PO TID Discontinued losartan 50 mg tablet 50 mg PO BID Qty: 180 3RF Discharge Orders: Discharge Order (Routine); Ordered 06/03/25 Ordered By: Luis Miguel Motta Diet: Low salt diet Activity on Discharge: As tolerated Stand Alone Forms: Patient Portal Discharge page Print Language: Sinhala Care Plan Goals: lung health Health Concerns: COPD R-sided CHF hyperkalemia suspicious pulmonary nodule Plan of Treatment: to short-term rehabilitation prednisone taper as follows: 20 mg (2 tabs) daily for 2 days, then 10 mg (1 tab) daily for 2 days, then 5 mg (half tab) daily for 2 days start furosemide 20 mg once daily Low-sodium diet: less than 2000 mg of sodium daily. Weigh yourself daily and call your doctor if your weight goes up by more than 3 lb/day or 5 lb/week. stop losartan due to hyperkalemia follow up with [facility] in 2 weeks for workup of nodule in lung suspicious for cancer Please follow up with your primary care doctor within 1 week of discharge from rehabilitation. Return to the hospital if you experience recurrent or worsening symptoms. Assessment: See Discharge Summary.
[2025-06-03 14:09] VITALS: BP 122/60; PULSE 68; RESP 16; TEMP 36.2; O2SAT 94
== END 2025-06-03 14:15 | disposition skilled nursing facility (03) | DRG 291 ==
LOC: HO.ED 21:19 → HO.EDOVER 21:21 → HO.S3 05-28 07:18
PROVIDERS: Family Medicine; Physician Assistant Medical; Admitting Provider Student in an Organized Health Care Education/Training Program; Emergency Provider Emergency Medicine; PCP Internal Medicine; Visit Provider Hospitalist
DX: I11.0 Hypertensive heart disease with heart failure (principal); I50.33 Acute on chronic diastolic (congestive) heart failure; J96.21 Acute and chronic respiratory failure with hypoxia; E87.1 Hypo-osmolality and hyponatremia; N17.9 Acute kidney failure, unspecified; M54.16 Radiculopathy, lumbar region; R91.1 Solitary pulmonary nodule; Z66 Do not resuscitate; R33.9 Retention of urine, unspecified; I07.1 Rheumatic tricuspid insufficiency; I27.29 Other secondary pulmonary hypertension; I50.813 Acute on chronic right heart failure; Z90.2 Acquired absence of lung [part of]; Z99.81 Dependence on supplemental oxygen; Z20.822 Contact with and (suspected) exposure to COVID-19; Z85.118 Personal history of other malignant neoplasm of bronchus and lung; Z87.891 Personal history of nicotine dependence; Z79.51 Long term (current) use of inhaled steroids; Z79.899 Other long term (current) drug therapy
CPT/HCPCS: 36415; 36600; 70450; 71045; 71250; 80048; 80053; 80076; 82140; 82803; 82947; 83735; 83880; 84484; 85025; 85027; 87633; 87637; 92610; 93005; 93306; 93970; 94660; 97162; 97530; 99285; J1650; J1938; J2270; J2405; J2919; Q9957

== ENCOUNTER → 2025-05-27 18:42 | Outpatient (BNV) | payer MEDICARE, SELFPAY | PROVIDERS: Admitting Provider Student in an Organized Health Care Education/Training Program; Emergency Provider Emergency Medicine; PCP Internal Medicine; Visit Provider Radiology Diagnostic Radiology | DX: I51.7 Cardiomegaly (principal) | CPT/HCPCS: 71045 ==

== ENCOUNTER 2025-05-27 20:46 | Outpatient (BNV) | payer MEDICARE, SELFPAY | END 2025-05-29 08:11 | PROVIDERS: Admitting Provider Student in an Organized Health Care Education/Training Program; Emergency Provider Emergency Medicine; PCP Internal Medicine; Visit Provider Radiology Diagnostic Radiology | DX: R91.1 Solitary pulmonary nodule (principal); Z85.110 Personal history of malignant carcinoid tumor of bronchus and lung | CPT/HCPCS: 71250 ==

== ENCOUNTER 2025-05-27 20:46 | Outpatient (BNV) | payer MEDICARE, SELFPAY | END 2025-05-28 07:00 | PROVIDERS: Admitting Provider Student in an Organized Health Care Education/Training Program; Emergency Provider Emergency Medicine; PCP Internal Medicine; Visit Provider Internal Medicine | DX: I27.20 Pulmonary hypertension, unspecified (principal); I34.81 Nonrheumatic mitral (valve) annulus calcification; I36.1 Nonrheumatic tricuspid (valve) insufficiency; I51.89 Other ill-defined heart diseases; R94.31 Abnormal electrocardiogram [ECG] [EKG]; R00.1 Bradycardia, unspecified | CPT/HCPCS: 93010; 93306 ==

== ENCOUNTER 2025-05-27 20:46 | Outpatient (BNV) | payer MEDICARE, SELFPAY | END 2025-05-28 11:55 | PROVIDERS: Admitting Provider Student in an Organized Health Care Education/Training Program; Emergency Provider Emergency Medicine; PCP Internal Medicine; Visit Provider Radiology Diagnostic Radiology | DX: R41.82 Altered mental status, unspecified (principal); M79.669 Pain in unspecified lower leg | CPT/HCPCS: 70450; 93970 ==

== ENCOUNTER → 2025-05-27 20:46 | Outpatient (BNV) | payer MEDICARE, SELFPAY | PROVIDERS: Admitting Provider Student in an Organized Health Care Education/Training Program; Emergency Provider Emergency Medicine; PCP Internal Medicine; Visit Provider Student in an Organized Health Care Education/Training Program | DX: J44.1 Chronic obstructive pulmonary disease with (acute) exacerbation (principal); R33.8 Other retention of urine | CPT/HCPCS: 99223; 99232; 99239 ==

== ENCOUNTER → 2025-05-27 20:46 | Outpatient (BNV) | payer MEDICARE, SELFPAY | PROVIDERS: Admitting Provider Student in an Organized Health Care Education/Training Program; Emergency Provider Emergency Medicine; PCP Internal Medicine; Visit Provider Urology | DX: R33.9 Retention of urine, unspecified (principal) | CPT/HCPCS: 99222 ==

== ENCOUNTER → 2025-05-27 20:46 | Outpatient (BNV) | payer MEDICARE, SELFPAY | PROVIDERS: Admitting Provider Student in an Organized Health Care Education/Training Program; Emergency Provider Emergency Medicine; PCP Internal Medicine; Visit Provider Internal Medicine | DX: J96.21 Acute and chronic respiratory failure with hypoxia (principal); R94.31 Abnormal electrocardiogram [ECG] [EKG] | CPT/HCPCS: 93010; 99223 ==

== ENCOUNTER → 2025-05-27 20:46 | Outpatient (BNV) | payer MEDICARE, SELFPAY | PROVIDERS: Admitting Provider Student in an Organized Health Care Education/Training Program; Emergency Provider Emergency Medicine; PCP Internal Medicine; Visit Provider Internal Medicine Pulmonary Disease | DX: J44.9 Chronic obstructive pulmonary disease, unspecified (principal); J96.21 Acute and chronic respiratory failure with hypoxia; R91.1 Solitary pulmonary nodule | CPT/HCPCS: 99222 ==

== ENCOUNTER 2025-06-11 12:48 | Outpatient (AMB) | payer MEDICARE, SELFPAY ==
--- NOTE | 2025-06-11 12:54 | MHC.OFFVIS ---
Vital Signs 06/11/25 13:09 Height 4 ft 9 in Weight 99 lb 6 oz BMI 21.5 BP 100/52 L Blood Pressure Location Lt brachial Position Sitting Pulse 56 Pulse Source Pulse Oximeter Pulse Oximetry (%) 96 Oxygen Delivery Method Nasal Cannula Oxygen Flow Rate 2 Intake Visit Reasons: Cough/ COPD Allergies No Known Allergies Allergy (Mild, Verified 06/11/25 13:15) N/A HPI HPI Cough/ COPD: Details: Billie is a pleasant of an 82-year-old female, former 30+ pack smoker, quit 30 years ago with underlying COPD, chronic hypoxic respiratory failure on supplemental oxygen, hypertension, history of lung cancer s/p RLL lobectomy 2012 (no chemo/radiation). She is accompanied by staff member from [facility] where she is currently residing, hoping to be discharged in the next few weeks. She was referred by [facility] after recent admission from 05/27-06/03. She initially presented with worsening dyspnea on exertion, in emergency room BNP found to be elevated and requiring 6 L of supplemental oxygen, baseline 2L with exertion only. She was treated for COPD exacerbation with methylprednisolone and new onset CHF with IV Lasix discharged with p.o. prednisone in addition to oral Lasix, now using 2L continuously. Echo performed revealing severe pulmonary hypertension likely related to fluid overload. Also noted during hospitalization was an irregular spiculated nodule of the right upper lobe measuring 11 x 6 x 11 mm. Recommendations were made for PET and possible biopsy. Prior PFT 2020 revealed mild COPD with significantly decreased DLCO 30. She has been using Breo 100 mcg with suboptimal effect, continues with dyspnea, dry cough and intermittent wheezing. [facility] Medical History (Updated 06/11/25 @ 13:49 by Anila Milan NP) Exercise hypoxemia COPD (chronic obstructive pulmonary disease) Cough in adult patient Family History Father No problems noted. Mother No problems noted. Social History Household Members: Family Housing: House Do you presently have visiting nurse or other home services: No Alcohol intake: current Alcohol intake frequency: does not drink Patient Tobacco Use Status: Former Tobacco user e-Cigarette/Vaping Use: Former Use service: No Current occupational status: retired Cognitive needs: No Hearing needs: No Vision needs: No Review of Systems Const Denies chills, Denies excessive sweating, Denies fever(s), Denies headache(s) and Denies night sweats Eyes Denies dry eyes, Denies irritation and Denies itchy eyes ENT Reports Normal hearing present, Denies headache(s), Denies nasal congestion, Denies nasal discharge, Denies post nasal drip and Denies sore throat Card Denies chest pain, Denies chest pain at rest, Denies chest pain with activity, Denies claudication, Denies leg edema, Denies orthopnea and Denies paroxysmal nocturnal dyspnea Resp Denies chest congestion, Denies excessive phlegm production, Denies pain on inspiration, Denies pain with cough and Denies stridor Musc Denies myalgias Neuro Reports Normal hearing present and Denies headache(s) Endo Denies excessive sweating Miky/Lymph Denies lymphadenopathy Aller/Immun Denies itchy eyes and Denies seasonal rhinorrhea Physical Exam Vital Signs: Last Vital Signs Pulse 56 06/11/25 13:09 BP 100/52 L 06/11/25 13:09 Pulse Ox 96 06/11/25 13:09 Oxygen Delivery Method Nasal Cannula 06/11/25 13:09 Oxygen Flow Rate 2 06/11/25 13:09 BMI result Body Mass Index 21.5 Const General: cooperative, healthy appearing, comfortable, no acute distress and alert Nutritional Appearance: obese Orientation/consciousness: patient oriented x3 HEENT Head: Yes normal to inspection, Yes normocephalic and Yes atraumatic Ears: hearing grossly normal bilaterally and external ears normal Eyes General: appearance normal, both eyes and all related structures Eyelids: Yes eyelids normal Sclerae: sclerae normal EOM: EOMs intact bilaterally Neck Neck: Yes normal visual inspection and Yes no lymphadenopathy Lymphatic: no lymphadenopathy noted Chest Chest palpation & inspection: normal inspection of the chest Resp Other: diminished aeration throughout RLL and inspiratory crackles of LLL Effort & Inspection: normal respiratory effort, able to speak in complete sentences, no audible wheezes, no cough, no stridor, not tachypneic, no tripod positioning and no use of accessory muscles Cardio Jugular venous distension: no JVD Rate: regular rate Rhythm: regular rhythm Skin Other: warm, dry General skin exam: no rashes or lesions noted Neuro General: patient oriented x3 Cranial nerves: Yes Normal hearing present Cognition (Neuro): normal cognition Extrem General: Yes normal to inspection, Yes capillary refill normal, Yes no clubbing, cyanosis or edema and Yes no pedal edema Psych Appearance: grossly normal and well kempt Speech and movement: Normal speech and movement present and Clear speech present Affect: normal affect Attitude: cooperative Thought process: Normal thought process present Thought content: Normal thought content present Insight: Good insight present (Psych) Judgement: Good judgement present (Psych) Results Reviewed Results Reviewed: [address] [address] [address] Scan Report Signed with Addenda Patient: Billie Rangel MR#: [id number] : 1935 Acct:[id number] Age/Sex: 89 / F ADM Date: 05/27/25 Loc: .S3 380-[address]: Harsha Mascorro MD Ordering Physician: Harsha Mascorro MD Date of Service: 05/29/25 Procedure(s): CT chest wo IV con Accession Number(s): [id number] cc: Harsha Mascorro MD; Aurelia Mendoza MD~ Report Number: [id number]: Total DLP = 97.00 mGy-cm ADDENDUM ADDENDUM #1 Text message acknowledged on 05/29/2025 at 9:03 AM. Electronically signed by: Kyle Medina MD 05/29/2025 09:04 AM EDT Addendum Dictated By: Kyle Medina MD Addendum Signed By: <Electronically signed by Kyle Medina MD in OV> 05/29/25903 Addendum Cosigned By: DD/ TD/TT: 05/29/25 EXAMINATION: CT CHEST WITHOUT IV CONTRAST INDICATION: copd, /pna COMPARISON: There are no prior studies available for comparison. TECHNIQUE: Helical CT scan of the chest was performed without intravenous contrast. Coronal and sagittal reformatted images were generated and reviewed. This CT exam was performed with one or more of the following dose reduction techniques: automated exposure control, adjustment of the mA and/or kV according to patient size, use of iterative reconstruction technique. DLP: 97 mGy-cm CHEST: THYROID: The thyroid is unremarkable. LUNGS: There are mild emphysematous changes. Postsurgical changes are again noted on the right. There is a new irregular spiculated nodule in the right upper lung zone measuring 11 x 6 x 11 mm (series 4 image 55 and series 6 image 58). There are are additional punctate nodules at the lung apices (series 4, images 20 and 36). MEDIASTINUM: There is no mediastinal lymphadenopathy. BERNARDA: Evaluation of the hilar regions is limited by lack of intravenous contrast material. CARDIOVASCULATURE: The heart is enlarged. There is no pericardial effusion. The thoracic aorta demonstrates marked atherosclerotic calcification, but is normal in caliber. DEGREE OF CORONARY CALCIFICATION: severe PLEURA: There are trace bilateral pleural effusions. No pneumothorax. MAIN AIRWAYS: The mainstem bronchi and proximal branches are patent. AXILLA: There is no axillary lymphadenopathy. BONES AND SOFT TISSUES: Unremarkable UPPER ABDOMEN: The visualized portions of the liver, spleen, and adrenals have an unremarkable unenhanced appearance. CT/CT chest wo IV con IMPRESSION: Postsurgical changes on the right. New irregular spiculated nodule in the right upper lobe measuring 11 x 6 x 11 mm. Findings are suspicious for neoplasm, especially given the patient's history of prior lung cancer. Surgical consultation is recommended. Short-term follow-up chest CT versus PET/CT scan is also recommended. Findings were communicated to Harsha Mascorro MD by secure text message on 05/29/2025 at 8:49 AM. Electronically signed by: Kyle Medina MD 05/29/2025 08:51 AM EDT Dictated By: Kyle Medina MD Signed By: <Electronically signed by Kyle Medina MD in OV> 05/29/25 0851 DD/ 0 TD/TT: 05/29/25828 Dispatcher Service Or Work: Assessment & Plan Assessment & Plan (1) COPD (chronic obstructive pulmonary disease): Code(s): J44.9 - Chronic obstructive pulmonary disease, unspecified Category: Medical (2) Pulmonary nodule 1 cm or greater in diameter: Code(s): R91.1 - Solitary pulmonary nodule Category: Medical (3) Cough: Code(s): R05.9 - Cough, unspecified Category: Medical Qualifiers: Cough type: chronic Qualified Code(s): R05.3 - Chronic cough Plan Yoshi presents for pulmonary evaluation after recent hospital admission for COPD exacerbation and new onset of CHF. She reports suboptimal control using Breo 100 mcg, will increase to Breo 200 mcg in addition to DuoNeb p.r.n.. Encouraged patient to continue 2 L supplemental oxygen to maintain oxygen saturation greater than 92%. Will attempt 6 minute walk at next visit and consider overnight oximetry. We reviewed the need for a PET scan and biopsy to evaluate the new lung nodule, explaining the procedure and its purpose. Will order PET now followed by biopsy after PET resulted. On exam today patient with inspiratory crackles of LLL and diminished aeration throughout RLL however s/p resection, will send for CXR to further evaluate. Since patient is residing at [facility] both prescription for Breo and CXR were printed and given to [facility] staff member. The importance of maintaining oxygen therapy and monitoring fluid status with furosemide was emphasized. All questions were answered and patient is in agreement of plan. Will follow up to review results or sooner if needed. Orders: Orders XR chest 2V 06/11/25 R06.00 - Dyspnea, unspecified Medications: New fluticasone furoate-vilanterol 200-25 mcg/dose (Breo Ellipta) 1 inh inhalation DAILY 60 ea 3RF Coding Level of Care Code New Pt Level 4 (19303) Diagnoses COPD (chronic obstructive pulmonary disease) J44.9 Pulmonary nodule 1 cm or greater in diameter R91.1 Chronic cough R05.3 Cough type: chronic
[2025-06-11 13:09] VITALS: BP 100/52; PULSE 56; O2SAT 96; BMI 21.5
--- OUTSIDE RECORDS SUMMARY | 2025-06-11 13:21 | XMS_ITS | Encounter Summary ---
Author Organization [facility] Address [address] [place] [address] Phone Care Team Providers Care Sed Middle [employer] Teacher Name Role Phone Júnior Sunshine MD Primary Care Provider Reason for Referral * Physical Therapy (Routine) - Closed Specialty Diagnoses / Procedures Referred By Contmyrna t Referred To Contact Physical Therapy Diagnoses Encounter for rehabilitation Júnior Sunshine MD [address] [place] [address] [place] [address] Phone: tel: fax: [address] [address] Phone: tel: Referral ID Status Reason Start Date Expiration Date Visits Re quested Visits Authorized [id number] Closed 07/18/2019 11/12/2019 99 99 Encounter Details Date Type Department Care Team (Latest Contact Info) Description 07/01/2019 Transcribe Orders [facility] [address] [place] [id number] Júnior Sunshine MD [address] [place] [address] [place] [address] Encounter for rehabilitation (Primary Dx) Social History Tobacco Use Types Packs/Day Years Used Date Smoking Tobacco: Former Cigarettes 1 23 1990 Smokeless Tobacco: Never Comments Unknown Sex and Gender Information Value Date Recorded Sex Assigned at Not on file Legal Sex Female 10:14 PM EDT Gender Identity Not on file Sexual Orientation Not on file documented as of this encounter Plan of Treatment Scheduled Referrals Name Type Priority Associated Diagnoses Orde r Schedule Ambulatory referral to [facility] Physical Therapy Outpatient Referral Routine Encounter for rehabilitation Ordered: 07/01/2019 documented as of this encounter Visit Diagnoses Diagnosis Encounter for rehabilitation- Primary documented in this encounter Care Teams [employer] Teacher Relationship Specialty Start Date End Date Júnior Sunshine MD [address] [place] [address] Dr [place], [place] [address] PCP - General 08/31/17 documented as of this encounter Additional Source Comments The information contained in this document represents components of the legal health record. It is not the complete legal health record.[facility]
--- OUTSIDE RECORDS SUMMARY | 2025-06-11 13:21 | XMS_ITS | Patient Health Record ---
Author Organization Kyle Lechuga III, MD Address [address] [place] [address] Care Team Providers Care Endless Track Vehicle Mechanic Name Role Phone Júnior Sunshine MD Primary Care Provider Kyle Gomes Unavailable [phone] Allergies No Known Allergies Reason For Referral [...] Problem Status W/U Status Risk Notes Problem 3465144 Former smoker (Z87.891) Active confirmed She is highly motivated not to smoke. She has a plan to prevent relapse in times of stress and illness. Problem 50914703 Hypertension (I10) Active confirmed Her blood press ure stable at this time and no change in her regimen is necessary. Problem 56028389 COPD (chronic obstructive pulmonary disease) (J44.9) Active confirmed Her COPD is stable and she is breathing room air comfortably. No change in her regimen was necessary. Problem 23782950 Colonic polyp (K63.5) Active confirmed Problem 644980981 Osteoarthritis (M19.90) Active confirmed Problem 016041384 Barretts esophagus (K22.70) Active confirmed I have strongly recommended that she see a supervisor education periodically for endoscopy. She has agreed to do so. Problem 268857903 Adenocarcinoma of lung (C34.90) Active confirmed There is cu rrently no sign of recurrent disease and she is comfortable breathing room air. He is medically stable only be followed annually. Problem 10688871 Pleural effusion on right (J90) Active confirmed [...] End Date MEDICARE NGS [address] [place] [address] [id number] Billie Rangel Self - patient is the insured [facility] [address] [place] [address] [id number] Billie Rangel Self - patient is the insured Medical (General) History Medical History History ICD Code copd hypertension [id number] osteoarthritis dysfunctional uterine bleeding adenocarcinoma of the lung, right lower lobe,07/2013 tubular adenomas of the colon Rojas's esophagus Surgical History Surgery Date(Month/Year) hysterectomy 1985 right first toe surgery 1998 left knee replacement 2000 colonoscopy, Dr. Kyle Bhardwaj right lower lobectomy, adenocarcinoma of lung 07/2013
--- OUTSIDE RECORDS SUMMARY | 2025-06-11 13:21 | XMS_ITS | Patient Health Record ---
Author Organization [facility] Address [address] [place] [id number] Care Team Providers Care Claims Technician Name Role Phone Lashae Kyle Unavailable [phone] Reason For Referral No Information Plan Of Treatment No Information
== END 2025-06-11 13:58 | disposition home or self-care (01) ==
LOC: HO.HPSW 12:49
PROVIDERS: PCP Internal Medicine; Referring Provider Internal Medicine; Visit Provider Nurse Practitioner Family
DX: J44.9 Chronic obstructive pulmonary disease, unspecified (principal); R91.1 Solitary pulmonary nodule; R05.3 Chronic cough
CPT/HCPCS: 99204

== ENCOUNTER → 2025-06-11 12:48 | Outpatient (BNVA) | payer MEDICARE, SELFPAY | PROVIDERS: PCP Internal Medicine; Referring Provider Internal Medicine; Visit Provider Nurse Practitioner Family | DX: R91.1 Solitary pulmonary nodule (principal); R39.12 Poor urinary stream; J44.9 Chronic obstructive pulmonary disease, unspecified; R05.3 Chronic cough | CPT/HCPCS: 99202 ==

== ENCOUNTER 2025-07-31 13:39 | Outpatient (AMB) | payer MEDICARE, SELFPAY ==
--- NOTE | 2025-07-31 13:41 | MHC.PC.OV ---
Vital Signs 07/31/25 13:50 Height 4 ft 9 in Weight 104 lb BMI 22.5 BMI Reason not done Patient refused/unable BP 134/70 Blood Pressure Location Lt brachial Position Sitting Respiration 20 Pulse 61 Pulse Source Pulse Oximeter Temp 98 F Temp Source Temporal Artery Scan Pulse Oximetry (%) 90 L Oxygen Delivery Method Nasal Cannula Oxygen Flow Rate 2 Intake Visit Reasons: F/U from [facility] Licensed Surveyor Required: No Accompanied by: Self / Same As Patient Allergies No Known Allergies Allergy (Mild, Verified 07/31/25 13:41) N/A Tobacco use date assessed: 05/08/25 Dental Screening Dental Screen Date: 05/08/25 HPI HPI Comments History of Present Illness Details The patient is an 89-year-old female presenting with follow-up concerns post-hospitalization for fluid accumulation around the heart and ongoing respiratory issues. In May, the patient had been admitted to the hospital due to fluid retention around her heart & COPD exacerabtion and was subsequently transferred to a rehabilitation facility for further care. Since discharge, she reports persistent fatigue, noting waking and going to bed feeling tired. Despite home-based physical therapy, her energy levels have not improved. A significant factor contributing to her respiratory symptoms is diagnosed COPD, for which she now uses supplemental oxygen continuously at a baseline of 2 liters. The patient also reports that an ultrasound indicated severe pulmonary hypertension, contributing to increased pulmonary pressures. The patient acknowledges her anemia, although reassured it is not significant enough to contribute to her fatigue. She confirmed the absence of chronic cough but admits to a history of smoking, which she no longer engages in. The patient reports compliance with medication including Breo Ellipta and Spiriva for COPD, but demonstrates ongoing concerns about prescription refills and associated costs, particularly for a nebulizer medication and cough syrup, which were not newly prescribed. Medical History: - Fluid retention with pericardial effusion (May hospitalization) - Severe pulmonary hypertension - Chronic Obstructive Pulmonary Disease (COPD) - Anemia Medications: - Breo Ellipta for COPD - Spiriva for COPD - Albuterol (as needed) for respiratory symptoms - Metoprolol succinate for elevated blood pressure - Tylenol as needed for pain or fever Diagnostic Results: - Labs: Anemia present but not severe - Tests and Diagnostics: Ultrasound showing severe pulmonary hypertension, indicating increased pulmonary pressures Socail: - The patient lives alone and has home-based physical therapy. - Smoker history, now refrains from smoking. - Requires assistance with medication management and concerns about the affordability of prescriptions. [facility] Medical History (Updated 07/31/25 @ 14:07 by Vinicio Live MD) Physical debility Hypertension Exercise hypoxemia COPD (chronic obstructive pulmonary disease) Cough in adult patient Family History Father No problems noted. Mother No problems noted. Social History Household Members: Family Housing: House Do you presently have visiting nurse or other home services: No Alcohol intake: current Alcohol intake frequency: does not drink Patient Tobacco Use Status: Former Tobacco user e-Cigarette/Vaping Use: Former Use service: No Current occupational status: retired Cognitive needs: No Hearing needs: No Vision needs: No Questionnaire Thrive Questionnaire Date Thrive assessed: 05/28/25 AUGUSTUS-7 AMB Questionnaire AUGUSTUS-7 Date AUGUSTUS - 7 assessed: 05/08/25 Source: Developed by Drs. Kyle Lambert, Luz Irene, Acosta Lindsey and colleagues, with an educational zandra from [employer]. Review of Systems Const Details: - Respiratory: Reports persistent fatigue, use of supplemental oxygen, denies chronic cough - Hematologic: Reports anemia All systems reviewed & are unremarkable except as reviewed in HPI and above Physical exam (Primary Care) Vital Signs: Last Vital Signs Temp 98 F 07/31/25 13:50 Pulse 61 07/31/25 13:50 Resp 20 07/31/25 13:50 BP 134/70 07/31/25 13:50 Pulse Ox 90 L 07/31/25 13:50 Oxygen Delivery Method Nasal Cannula 07/31/25 13:50 Oxygen Flow Rate 2 07/31/25 13:50 BMI result Body Mass Index 22.5 Tobacco/Smoking Status: Tobacco use Status Tobacco use date assessed 05/08/25 07/31/25 13:43 Patient Tobacco Use Status Former Tobacco user 07/31/25 13:43 e-Cigarette/Vaping Use Former Use 07/31/25 13:43 Thrive Assessment: Date of Thrive Assessment Date Thrive assessed 05/28/25 07/31/25 13:43 Const Other: General: Alert and oriented, Well nourished, No acute distress, Appears tired. Eye: Pupils are equal, round and reactive to light, Intact accommodation, Extraocular movements are intact, Normal conjunctiva, Vision unchanged. HENT: Normocephalic, Atraumatic, Tympanic membranes are clear, Normal hearing, Oral mucosa is moist, No pharyngeal erythema, Ear canals patent. Respiratory: Lungs CTA bilaterally, No wheeze, Respirations are non-labored, Severe pulmonary hypertension noted, COPD present. Cardiovascular: Regular rate, Regular rhythm, S1 auscultated, S2 auscultated, No murmur, Good pulses equal in all extremities, Normal peripheral perfusion, No edema, History of fluid around the heart. Gastrointestinal: Soft, Non-tender, Non-distended, Normal bowel sounds, No organomegaly. Musculoskeletal: Normal range of motion, Normal strength, No tenderness, No swelling, No deformity, Normal gait. Integumentary: Warm, Dry, [place], Intact. Neurologic: Alert, Oriented, Normal sensory, Normal motor function, No focal defects, Cranial Nerves II-XII are grossly intact, Normal deep tendon reflexes. Psychiatric: Cooperative, Appropriate mood & affect, Normal judgment. Coding Level of Care Code Est Pt Level 4 (00340) Complex EM visit Add On G2211 Diagnoses Chronic obstructive pulmonary disease with acute exacerbation J44.1 COPD type: COPD with acute exacerbation Chronic cough R05.3 Cough type: chronic Hypertension, unspecified type I10 Hypertension type: unspecified Pulmonary hypertension I27.20 Physical debility R53.81 Assessment & Plan Assessment & Plan (1) COPD (chronic obstructive pulmonary disease): Comment: - Continue Breo Ellipta and Spiriva inhalers. - Ensure prescription for nebulizer medication is refilled; emphasize the necessity of maintaining oxygen therapy, with caution against smoking. - Recently admitted to the hospital where she was hypoxic and since been discharged on 2L of home oxygen Code(s): J44.9 - Chronic obstructive pulmonary disease, unspecified Category: Medical Qualifiers: COPD type: COPD with acute exacerbation Qualified Code(s): J44.1 - Chronic obstructive pulmonary disease with (acute) exacerbation (2) Cough: Comment: - Continue hydrocodone-homatropine. Advised patient against use but patient re-iterated that she required the medciation for her chronic cough Code(s): R05.9 - Cough, unspecified Category: Medical Qualifiers: Cough type: chronic Qualified Code(s): R05.3 - Chronic cough (3) Hypertension: Comment: Continue metoprolol succinate 12.5 daily Code(s): I10 - Essential (primary) hypertension Category: Medical Qualifiers: Hypertension type: unspecified Qualified Code(s): I10 - Essential (primary) hypertension (4) Pulmonary hypertension: Comment: - Refer to pulmonology for comprehensive evaluation and management. - RRSVP elevated to 88 Code(s): I27.20 - Pulmonary hypertension, unspecified Category: Medical Plan: - Reinforce the importance of adherence to prescribed inhalers and oxygen therapy. - Reiterate smoking cessation benefits. - Ongoing physical therapy to improve endurance and functionality. Patient was informed and verbally consented to the use of an ambient scribe for clinic note documentation during this visit. (5) Physical debility: Comment: Debility status post hospitalization for COPD exacerbation. On exam does appear frail. Advised patient if she is unable to look after herself to presented to the emergency room however she had related that she stable and safe Code(s): R53.81 - Other malaise Category: Medical Plan During the visit, I reviewed the patient's current issues surrounding respiratory and cardiac management following hospitalization for fluid retention and ongoing concerns with severe pulmonary hypertension. She was informed of the need to maintain organ function, manage oxygen therapy, and continue her inhalation therapies for COPD. Refill of necessary medications and alternatives due to insurance constraints were discussed. I instructed her to adhere to home-based rehabilitation exercises and discussed referrals to cardiology and pulmonology for further evaluation. Smoking cessation benefits were reiterated, although the patient has already quit. Medications: Changed From tiotropium bromide (Spiriva with HandiHaler) puncture 1 cap using device; one dose = 2 inhalations 1 cap inhalation DAILY To tiotropium bromide (Spiriva with HandiHaler) puncture 1 cap using device; one dose = 2 inhalations 1 cap inhalation DAILY 60 ea 3RF 30 days Refilled hydrocodone-homatropine 5-1.5 mg/5 mL Patient may pay out pocket 5 mL PO QID PRN 600 mL 0RF cough J44.9 - Chronic obstructive pulmonary disease, unspecified, R05.9 - Cough, unspecified ipratropium-albuterol 0.5 mg-3 mg(2.5 mg base)/3 mL 3 mL inhalation Q4H PRN 1 mL 0RF Shortness Of Breath/Wheezing fluticasone furoate-vilanterol 200-25 mcg/dose (Breo Ellipta) 1 inh inhalation DAILY 60 ea 3RF Patient Instructions: - Keep using your Breo and Spiriva inhalers daily, and albuterol as needed for breathing. - Continue oxygen therapy at 2 liters consistently, even when sleeping. - Be diligent about taking metoprolol for blood pressure management. - Follow your physical therapy exercises at home. - Attend all specialist appointments with cardiology and pulmonology for further evaluation. - Do not smoke, and avoid any environments with smoke. - Seek medical care immediately if you have any difficulty breathing, chest pain, or other concerning symptoms.
[2025-07-31 13:50] VITALS: BP 134/70; PULSE 61; RESP 20; TEMP 36.6; O2SAT 90; BMI 22.5
--- OUTSIDE RECORDS SUMMARY | 2025-07-31 15:37 | XMS_ITS | Encounter Summary ---
Author Organization [facility] Address [address] [facility] [address] [place] [phone] Phone Care Team Providers Care Bridge Saw Operator Name Role Phone Júnior Sunshine MD Primary Care Provider Encounter Details Date Type Department Care Team (Late st Contact Info) Description 04/20/2020 Transcribe Orders [facility] [address] [place] [id number] Júnior Sunshine MD [address] [place] [address] [place] [address] Hypertension, unspecified type (Primary Dx); Avitaminosis D Social History Tobacco Use Types Packs/Day Years Used Date Smoking Tobacco: Former Cigarettes 1990 Smokeless Tobacco: Never Comments Unknown Sex and Gender Information Value Date Recorded Sex Assigned at Not on file Legal Sex Female 10:14 PM EDT Gender Identity Not on file Sexual Orientation Not on file documented as of this encounter Plan of Treatment Not on file documented as of this encounter Results * (ABNORMAL) CBC and differential (04/20/2020 9:24 AM EDT) WBC 8.91 4.00 - 11.00 K/uL [facility] Comment:Note Reference Range updates to all CBC and Differential results. RBC 4.90 3.72 - 5.30 M/uL [facility] HGB 14.3 11.4 - 15.9 g/dL [facility] Comment:Note updated Referen ce Ranges for all CBC and Differential results. HCT 43.8 34.2 - 46.8 % [facility] PLT 305 140 - 430 K/uL [facility] MCV 89.4 78.0 - 97.0 fL [facility] MCH 29.2 25.0 - 33.0 pg [facility] MCHC 32.6 32.0 - 36.0 g/dL [facility] RDW 15.0 11.0 - 16.0 % [facility] MPV 12.4 8.4 - 12.8 fl [facility] NRBC 0.00 0 /100 WBCs [facility] ABSOLUTE NRBC 0.00 0 K/uL [facility] DIFF METHOD Auto [facility] NEUTS 63.7 43.0 - 75.0 % [facility] LYMPHS 19.6 18.2 - 47.4 % [facility] MONOS 13.2(H) 4.00 - 11.00 % [facility] EOS 1.8 0.0 - 8.0 % [facility] BASOS 1.1 0.0 - 2.0 % [facility] Granulocytes, immature (%) 0.6 0.0 - 0.9 % [facility] ABSOLUTE NEUTS 5.67 1.80 - 7.70 K/uL [facility] ABSOLUTE LYMPHS 1.75 1.00 - 3.10 K/uL [facility] ABSOLUTE MONOS 1.18(H) 0.20 - 0.80 K/uL [facility] ABSOLUTE EOS 0.16 0.00 - 0.80 K/uL [facility] ABSOLUTE BASOS 0.10(H) 0.00 - 0.09 K/uL [facility] Granulocytes, immature 0.05 0.00 - 0.05 K/uL [facility] Blood 04/20/2020 9:24 AM EDT 04/20/2020 11:19 AM EDT us Júnior Sunshine MD LAB BLOOD ORDERABLES Fi nal Result [address] [address] * 25-OH vitamin D (04/20/2020 9:24 AM EDT) 25 OH VIT D (TOTAL) 37 30 - 60 ng/mL [facility] Blood 04/20/2020 9:24 AM EDT 04/20/2020 11:19 AM EDT Júnior Sunshine MD LAB BLOOD ORDERABLES Fi nal Result Performing Organization Address City/[facility]/ZIP Co de Phone Number [address] [phone] * (ABNORMAL) Comprehensive metabolic panel (04/20/2020 9:24 AM EDT) SODIUM 136 133 - 146 mmol/L [facility] POTASSIUM 4.9 3.3 - 5.1 mmol/L [facility] CHLORIDE 102 96 - 108 mmol/L [facility] CO2 20(L) 21 - 35 mmol/L [facility] BUN 18 6 - 19 mg/dL [facility] CREATININE 0.80 0.5 - 1.5 mg/dL [facility] GLUCOSE 96 70 - 99 mg/dL [facility] ALBUMIN 4.0 3.9 - 4.8 g/dL [facility] TOTAL PROTEIN 7.4 6.5 - 8.0 g/dL [facility] CALCIUM 10.0 8.4 - 10.3 mg/dL [facility] ALKALINE PHOSPHATASE 70 39 - 117 U/L [facility] TOTAL BILIRUBIN 0.3 0.0 - 1.2 mg/dL [facility] AST 28 0 - 37 U/L [facility] ALT 12 0 - 40 U/L [facility] GLOBULIN 3.4 1 - 4.8 g/dL [facility] EGFR 68 >59 mL/min/1.7 3m2 [facility] Comment:If patient is black, multiply result by 1.159. Estimated glomerular filtration rate calculated using the CKD-EPI equation. ANION GAP 19 10 - 20 mmol/L [facility] Blood 04/20/2020 9:24 AM EDT 04/20/2020 11:19 AM EDT Júnior Sunshine MD LAB BLOOD ORDERABLES Fi nal Result Performing Organization Address City/[facility]/ZIP Co de Phone Number [address] [phone] documented in this encounter Visit Diagnoses Diagnosis Hypertension, unspecified type- Primary Avitaminosis D Unspecified vitamin D deficiency documented in this encounter Care Teams Bridge Saw Operator Relationship Specialty Start Date End Date Júnior Sunshine MD [address] [place] [address] [place] [id number] PCP - General 08/31/17 documented as of this encounter Additional Source Comments The information contained in this document represents components of the legal health record. It is not the complete legal health record.[facility]
--- OUTSIDE RECORDS SUMMARY | 2025-07-31 15:37 | XMS_ITS | Clinical Summary ---
Author Organization [facility] Address [address] [place] [address] Phone Care Team Providers Care [employer] Academic [employer] Name Role Phone Júnior Sunshine MD Primary Care Provider Allergies No known active allergies Medications fluticasone-sharda anterol (BREO ELLIPTA) 100-25 mcg/dose DsDv 1 puff 11/18/2014 Activ e tiotropium (SPIRIVA WITH HANDIHALER) 18 mcg inhalation capsule inhale contents of 1 capsule Active naproxen sodium (ALEVE) 220 mg Cap 1 tablet as needed Active hydroCHLOROthia zide (HYDRODIURIL) 12.5 MG tablet 1 tablet 06/29/2017 Acti ve losartan (COZAAR) 50 MG tablet 1 tablet Active pregabalin (LYRICA) 50 MG capsule 1 capsule 01/06/2015 Active metoprolol tartrate (LOPRESSOR) 25 MG tablet 1 tablet Active multivitamins capsule as directed Active omeprazole (PRILOSEC) 40 MG capsule 1 capsule Active HYDROcodone-mariam atropine (HYDROMET) 5-1.5 mg/5 mL (5 mL) syrup Take 5 mL by mouth 4 (four) times a day as needed (cough). 600 mL 05/21/2019 Active Active Problems Problem Noted Date Diagnosed Date Chronic obstructive pulmonary disease 10/23/2017 Assessment & Plan (10/23/2017 1:31 PM EST): Continue Spiriva and Breo Ellipta. Does not use albuterol due to lack of clinical benefit. 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 Assessment & Plan (10/23/2017 1:28 PM EST): Recalcitrant chronic cough of unclear etiology. Trial of Lyrica unsuccessful. As per prior visit recommend repeat bronchoscopy for evaluation of both upper and lower airways. Patient prefers to wait till spring time we will proceed with follow-up 1-2 weeks following procedure. Okay to continue use of Hycodan cough syrup. Following November 13, patient to call for new prescription of codeine-guaifenesin cough syrup due to cost. 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 Hypoxemia 10/23/2017 Assessment & Plan (10/23/2017 1:32 PM EST): No evidence of significant pulmonary hypertension on recent echo to explain low DLCO on PFTs. Would recommend following clinically and repeat PFTs annually. Gastroesophageal reflux disease 10/23/2017 Assessment & Plan (10/23/2017 1:31 PM EST): Continue once daily omeprazole. Pending bronchoscopy result, may benefit from repeat GI evaluation. Encounters Date Type Department Care Team Description 06/19/2025 8:20 AM EDT - 06/19/2025 11:59 PM EDT Hospital Encounter [facility] Laboratory [address] [place] [address] Dejuan Neil MD Discharge Disposition: Home or Self Care 06/17/2025 9:30 AM EDT - 06/17/2025 11:59 PM EDT Hospital Encounter [facility] Laboratory [address] [place] [address] Dejuan Neil MD Discharge Disposition: Home or Self Care 06/10/2025 9:40 AM EDT - 06/10/2025 11:59 PM EDT Hospital Encounter [facility] Laboratory [address] [place] [address] Dejuan Neil MD Discharge Disposition: Home or Self Care 06/10/2025 Transcribe Orders [facility] Specimen Processing [address] [place] [address] Dejuan Neil MD Iron deficiency anemia secondary to blood loss (chronic) (Primary Dx); Vanishing lung 06/09/2025 7:38 AM EDT - 06/09/2025 11:59 PM EDT Hospital Encounter [facility] Laboratory [address] [place] [address] Dejuan Neil MD Discharge Disposition: Home or Self Care 06/09/2025 Transcribe Orders [facility] Specimen Processing [address] [place] [address] Dejuan Neil MD Obstructive chronic bronchitis with exacerbation (Primary Dx) 06/04/2025 9:33 AM EDT - 06/04/2025 11:59 PM EDT Hospital Encounter [facility] Laboratory [address] [place] [address] Dejuan Neil MD Discharge Disposition: Home or Self Care 06/04/2025 Transcribe Orders [facility] Specimen Processing [address] [place] [address] Dejuan Neil MD Illness (Primary Dx) 05/30/2025 Transcribe Orders [facility] Rehabilitation Services [address] [place] [address] Alethea Parker Encounter for rehabilitation (Primary Dx) from Last 3 Months Family History Medical History Relation Comments CV disease Mother 2 Diabetes mellitus Sibling 3 Hypertension Sibling 3 Relation Status Comments Mother 1 Mother 2 Sibling 1 Sibling 2 Sibling 3 Social History Tobacco Use Types Packs/Day Years Used Date Smoking Tobacco: Former Cigarettes 1 23 1 968 - 1990 Smokeless Tobacco: Never Education Answer Date Recorded Are you interested in more education? Not on abel e 03/10/2023 Are you concerned about learning? Not on file 03/10/2023 No 03/10/2023 No 03/10/2023 Digital Access Answer Date Recorded No 04/08/2023 No 04/08/2023 Reliable internet access at home? Not on file 04/08/2023 Device with a working camera? Not on file Comments Unknown Sex and Gender Information Value Date Recorded Sex Assigned at Not on file Legal Sex Female 10:14 PM EDT Gender Identity Not on file Sexual Orientation Not on file Last Filed Vital Signs Vital Sign Reading Time Taken Comments Blood Pressure 132/69 10/23/2017 12:46 PM EST Pulse 70 10/23/2017 12:46 PM EST Temperature 36.6 C (97.9 F) 10/23/2017 12:46 PM EST Respiratory Rate - - Oxygen Saturation 98% 10/23/2017 12:46 PM EST Inhaled Oxygen Concentration - - Weight 61.2 kg (135 lb) 10/23/2017 12:46 PM EST Height 153.7 cm (5' 0.5 ) 10/23/2017 12:46 PM ES T Body Mass Index 25.93 10/23/2017 12:46 PM EST Plan of Treatment Health Maintenance Due Date Last Done Comments Adult Td,Tdap Booster 1937 DEPRESSION SCREENING 1949 PNEUMOCOCCAL VACCINES (50+ years) (1 of 2 - PCV) 1956 ZOSTER VACCINES (1 of 2) 1987 OSTEOPOROSIS SCREENING INITIAL (ONE-TIME) 2002 RSV VACCINE (1 - 1-dose 75+ series) 2012 INFLUENZA VACCINE (#1) 2025 7, 08/18/2016, 07/07/2015 COVID-19 VACCINE (3 - 2024- season) 2025 01/15/2021, 12/25/2020 CREATININE LEVEL 06/19/2026 06/19/2025, 03/2025, 06/10/2025, Additional history exists POTASSIUM LEVEL 06/19/2026 06/19/2025, 08/0 03/2025, 06/10/2025, Additional history exists HEPATITIS A VACCINES Aged Out No long er eligible based on patient's age to complete this topic HIB VACCINES Aged Out No longer eligi ble based on patient's age to complete this topic MENINGOCOCCAL VACCINES (ACWY) Aged Out No longer eligible based on patient's age to complete this topic MENINGOCOCCAL VACCINES (B) Aged Out N o longer eligible based on patient's age to complete this topic Medical Devices Not on file Procedures Procedure Name Priority Date/Time Associated Diagnosis Comments BASIC METABOLIC PANEL Routine 06/19/2025 6:58 AM EDT Heart failure, unspecified HF chronicity, unspecified heart failure type NT-PROBNP Routine 06/19/2025 6:58 AM EDT Heart failure, unspecified HF chronicity, unspecified heart failure type BASIC METABOLIC PANEL Routine 06/17/2025 7:18 AM EDT Obstructive chronic bronchitis with exacerbation Chronic hypoxemic respiratory failure Anemia, unspecified type CBC Routine 06/17/2025 7:18 AM EDT Obstructive chronic bronchitis with exacerbation Chronic hypoxemic respiratory failure Anemia, unspecified type IRON AND IRON BINDING CAPACITY Routine 06/10/2025 8:55 AM EDT 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 FERRITIN Routine 06/10/2025 8:55 AM EDT 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 FOLATE Routine 06/10/2025 8:55 AM EDT 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 CBC Routine 06/10/2025 8:55 AM EDT 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 COMPREHENSIVE METABOLIC PANEL Routine 06/10/2025 8:55 AM EDT 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 VITAMIN B12 Routine 06/10/2025 8:55 AM EDT 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 RETICULOCYTES Routine 06/10/2025 8:55 AM EDT 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 VITAMIN B12 Routine 06/09/2025 6:55 AM EDT Obstructive chronic bronchitis with exacerbation RETICULOCYTES Routine 06/09/2025 6:55 AM EDT Obstructive chronic bronchitis with exacerbation IRON AND IRON BINDING CAPACITY Routine 06/09/2025 6:55 AM EDT Obstructive chronic bronchitis with exacerbation FERRITIN Routine 06/09/2025 6:55 AM EDT Obstructive chronic bronchitis with exacerbation FOLATE Routine 06/09/2025 6:55 AM EDT Obstructive chronic bronchitis with exacerbation CBC Routine 06/09/2025 6:55 AM EDT Obstructive chronic bronchitis with exacerbation BASIC METABOLIC PANEL Routine 06/09/2025 6:55 AM EDT Obstructive chronic bronchitis with exacerbation COMPREHENSIVE METABOLIC PANEL Routine 06/04/2025 9:10 AM EDT Illness CBC Routine 06/04/2025 9:10 AM EDT Illness from Last 3 Months Results * (ABNORMAL) NT-proBNP (06/19/2025 6:58 AM EDT) NT-PROBNP 774(H) 0 - 450 pg/mL [facility] 06/19/2025 6:58 AM EDT 06/19/2025 8:36 AM EDT us Dejuan Neil MD LAB BLOOD ORDERABLES Final Resul t [address] [address] * (ABNORMAL) Basic metabolic panel (06/19/2025 6:58 AM EDT) Only the most recent of3 resultswithin the time period is included. SODIUM 136 133 - 146 mmol/L [facility] CHLORIDE 100 96 - 108 mmol/L [facility] POTASSIUM 5.3(H) 3.3 - 5.1 mmol/L [facility] CO2 26 21 - 35 mmol/L [facility] BUN 20(H) 6 - 19 mg/dL [facility] CREATININE 1.00 0.5 - 1.5 mg/dL [facility] GLUCOSE 82 70 - 99 mg/dL [facility] CALCIUM 9.5 8.4 - 10.3 mg/dL [facility] EGFR 54(L) >59 mL/min/1.7 3m2 [facility] Comment:Estimated glomerular filtration rate calculated using the CKD-EPI refit equation. ANION GAP 15 10 - 20 mmol/L [facility] 06/19/2025 6:58 AM EDT 06/19/2025 8:36 AM EDT us Dejuan Neil MD LAB BLOOD ORDERABLES Final Resul t Performing Organization Address City/[facility]/ZIP Co de Phone Number [address] [address] * (ABNORMAL) CBC (06/17/2025 7:18 AM EDT) Only the most recent of4 resultswithin the time period is included. WBC 8.73 4.00 - 11.00 K/uL [facility] RBC 4.28 4.00 - 5.20 M/uL [facility] HGB 11.6(L) 12.0 - 16.0 g/dL [facility] HCT 36.1 36.0 - 46.0 % [facility] PLT 269 150 - 450 K/uL [facility] MCV 84.3 80.0 - 100.0 fL [facility] MCH 27.1 27.0 - 31.0 pg [facility] MCHC 32.1 32.0 - 36.0 g/dL [facility] RDW 19.9(H) 11.5 - 14.5 % [facility] MPV 12.1(H) 8.4 - 12.0 fL [facility] NRBC 0.00 0.00 /100 WBCs [facility] ABSOLUTE NRBC 0.00 0.00 K/uL [facility] 06/17/2025 7:18 AM EDT 06/17/2025 9:54 AM EDT us Dejuan Neil MD LAB BLOOD ORDERABLES Final Resul t [address] [address] * (ABNORMAL) Reticulocytes (06/10/2025 8:55 AM EDT) Only the most recent of2 resultswithin the time period is included. RETIC (%) 1.2 0.7 - 2.5 % [facility] RETIC (ABSOLUTE) 0.0529 0.0164 - 0.0776 M/uL [facility] RETIC HGB EQUIV 36.70(H) 26.7 - 35.5 pg [facility] Retics, immature(%) 13.2 3.0 - 15.9 % [facility] Blood 06/10/2025 8:55 AM EDT 06/10/2025 10:54 AM EDT us Dejuan Neil MD LAB BLOOD ORDERABLES Final Resul t [address] [address] * (ABNORMAL) Comprehensive metabolic panel (06/10/2025 8:55 AM EDT) Only the most recent of2 resultswithin the time period is included. SODIUM 134 133 - 146 mmol/L [facility] POTASSIUM 5.5(H) 3.3 - 5.1 mmol/L [facility] Comment:Specimen slightly he molyzed, result may be falsely elevated. CHLORIDE 98 96 - 108 mmol/L [facility] CO2 24 21 - 35 mmol/L [facility] BUN 27(H) 6 - 19 mg/dL [facility] CREATININE 0.90 0.5 - 1.5 mg/dL [facility] GLUCOSE 80 70 - 99 mg/dL [facility] ALBUMIN 3.7(L) 3.9 - 4.8 g/dL [facility] TOTAL PROTEIN 6.4(L) 6.5 - 8.0 g/dL [facility] CALCIUM 9.5 8.4 - 10.3 mg/dL [facility] ALKALINE PHOSPHATASE 43 39 - 117 U/L [facility] TOTAL BILIRUBIN 0.5 0.0 - 1.2 mg/dL [facility] AST 32 0 - 37 U/L [facility] ALT 13 0 - 40 U/L [facility] GLOBULIN 2.7 1 - 4.8 g/dL [facility] EGFR 61 >59 mL/min/1.7 3m2 [facility] Comment:Estimated glomerular filtration rate calculated using the CKD-EPI refit equation. ANION GAP 18 10 - 20 mmol/L [facility] Blood 06/10/2025 8:55 AM EDT 06/10/2025 10:54 AM EDT us Dejuan Neil MD LAB BLOOD ORDERABLES Final Resul t Performing Organization Address City/[facility]/ZIP Co de Phone Number [address] [address] * Iron and iron binding capacity (06/10/2025 8:55 AM EDT) Only the most recent of2 resultswithin the time period is included. IRON 79 30 - 160 ug/dL [facility] IRON BINDING CAPACITY 333 228 - 428 ug/dL [facility] TRANSFERRIN SATURAT. 24 15 - 50 % [facility] Blood 06/10/2025 8:55 AM EDT 06/10/2025 10:54 AM EDT us Dejuan Neil MD LAB BLOOD ORDERABLES Final Resul t [address] [address] * Folate (06/10/2025 8:55 AM EDT) Only the most recent of2 resultswithin the time period is included. FOLIC ACID 17.6 4.2 - 19.9 ng/mL [facility] Blood 06/10/2025 8:55 AM EDT 06/10/2025 10:54 AM EDT us Dejuan Neil MD LAB BLOOD ORDERABLES Final Resul t [address] [address] * Ferritin (06/10/2025 8:55 AM EDT) Only the most recent of2 resultswithin the time period is included. FERRITIN 78 13 - 150 ug/L [facility] Blood 06/10/2025 8:5 5 AM EDT 06/10/2025 10:54 AM EDT us Dejuan Neil MD LAB BLOOD ORDERABLES Final Resul t Performing Organization Address [facility] Co de Phone Number [address] [address] * Vitamin B12 (06/10/2025 8:55 AM EDT) Only the most recent of2 resultswithin the time period is included. VITAMIN B12 701 232 - 1,245 pg/mL [facility] Blood 06/10/2025 8:55 AM EDT 06/10/2025 10:54 AM EDT us Dejuan Neil MD LAB BLOOD ORDERABLES Final Resul t Performing Organization Address City/[facility] Co de Phone Number [address] [address] from Last 3 Months Insurance MEDICARE PART A & B [facility] MEDICARE REPLACEMENT MEDICARE PART A & B [facility] MEDICARE REPLACEMENT MEDICARE PART A & B Member Subscriber Plan / Payer (Ef fective 1991-Present) Name:Timoteo Rangelance Member ID:[id number] Relation to Subscriber:Self Name:Billie Rangel Subscriber ID:[id number] Payer ID:[id number] Group ID:Not on file Type:Medicare Address: [employer] [address] [place] [address] MEDICARE PART A & B Member Subscriber Plan / Payer (Ef fective 1991-Present) Name:Timoteo Rangelance Member ID:[id number] Relation to Subscriber:Self Name:Billie Rangel Subscriber ID:[id number] Payer ID:[id number] Group ID:Not on file Type:Medicare Address: [employer] [address] [place] [address] MEDICARE PART A & B Member Subscriber Plan / Payer (Ef fective 1991-Present) Name:Billie Rangel Member ID:[id number] Relation to Subscriber:Self Name:Billie Rangel Subscriber ID:[id number] Payer ID:[id number] Group ID:Not on file Type:Medicare Address: [employer] [address] [place] [address] [place] [address] MEDICARE PART A & B Member Subscriber Plan / Payer (Ef fective 1991-Present) Name:Billie Rangel Member ID:[id number] Relation to Subscriber:Self Name:Billie Rangel Subscriber ID:[id number] Payer ID:[id number] Group ID:Not on file Type:Medicare Address: [employer] [address] [place] [address] MEDICARE PART A & B Member Subscriber Plan / Payer (Ef fective 1991-Present) Name:Timoteo Rangelance Member ID:[id number] Relation to Subscriber:Self Name:Billie Rangel Subscriber ID:[id number] Payer ID:[id number] Group ID:Not on file Type:Medicare Address: [employer] [address] [place] [address] [employer] P[employer] MEDICARE REPLACEMENT MEDICARE PART A & B Member Subscriber Plan / Payer (Ef fective 1991-Present) Name:Timoteo Rangelance Member ID:[id number] Relation to Subscriber:Self Name:Billie Rangel Subscriber ID:[id number] Payer ID:[id number] Group ID:Not on file Type:Medicare Address: [employer] [address] [place] [address] [facility] MEDICARE PART A & B Member Subscriber Plan / Payer (Ef fective 1991-) Name:Billie Rangel Member ID:[id number] Relation to Subscriber:Self Name:Billie Rangel Subscriber ID:[id number] Payer ID:[id number] Group ID:Not on file Type:Medicare Address: [employer] [address] [place] [address] [facility] Care Teams High [employer] Academic Coach Relationship Specialty Start Date End Date Júnior Sunshine MD [address] [place] [address] Dr Bloom, [place] [address] PCP - General 08/31/17 Additional Source Comments The information contained in this document represents components of the legal health record. It is not the complete legal health record.[facility]
--- OUTSIDE RECORDS SUMMARY | 2025-07-31 15:37 | XMS_ITS | Encounter Summary ---
Author Organization [facility] Address [address] [place] [address] Phone Care Team Providers Care Rn Home Health Name Role Phone Júnior Sunshine MD Primary Care Provider Reason for Referral * Physical Therapy (Routine) - Closed Specialty Diagnoses / Procedures Referred By Contmyrna t Referred To Contact Physical Therapy Diagnoses Encounter for rehabilitation Júnior Sunshine MD [address] [place] [address] [place] [address] Phone: tel: fax: [address] [address] Phone: tel: Referral ID Status Reason Start Date Expiration Date Visits Re quested Visits Authorized [id number] Closed 07/18/2019 11/12/2019 99 99 Encounter Details Date Type Department Care Team (Latest Contact Info) Description 07/01/2019 Transcribe Orders [facility] Rehabilitation Services [address] [place] [address] Júnior Sunshine MD [address] [place] [address] [place] [address] Encounter for rehabilitation (Primary Dx) Social History [...] Diagnoses Orde r Schedule Ambulatory referral to [facility] Physical Therapy Outpatient Referral Routine Encounter for rehabilitation Ordered: 07/01/2019 documented as of this encounter Visit Diagnoses Diagnosis Encounter for rehabilitation- Primary documented in this encounter Care Teams Rn Home Health Relationship Specialty Start Date End Date Júnior Sunshine MD [address] [place] [address] Dr Bloom, [place] [address] PCP - General 08/31/17 documented as of this encounter Additional Source Comments The information contained in this document represents components of the legal health record. It is not the complete legal health record.[facility]
== END 2025-07-31 14:18 | disposition home or self-care (01) ==
LOC: HO.HMCHD 13:39
PROVIDERS: PCP Student in an Organized Health Care Education/Training Program; Visit Provider Student in an Organized Health Care Education/Training Program
DX: J44.1 Chronic obstructive pulmonary disease with (acute) exacerbation (principal); R05.3 Chronic cough; I10 Essential (primary) hypertension; I27.20 Pulmonary hypertension, unspecified; R53.81 Other malaise

== ENCOUNTER → 2025-07-31 13:39 | Outpatient (BNVA) | payer MEDICARE, SELFPAY | PROVIDERS: PCP Student in an Organized Health Care Education/Training Program; Visit Provider Student in an Organized Health Care Education/Training Program | DX: J44.1 Chronic obstructive pulmonary disease with (acute) exacerbation (principal); R05.3 Chronic cough; I10 Essential (primary) hypertension; I27.20 Pulmonary hypertension, unspecified; R53.81 Other malaise; Z79.899 Other long term (current) drug therapy | CPT/HCPCS: 99212 ==

== ENCOUNTER 2025-10-01 12:53 | Outpatient (AMB) | payer MEDICARE, SELFPAY ==
--- NOTE | 2025-10-01 12:57 | MHC.PC.OV ---
Vital Signs 10/01/25 13:03 10/03/25 17:25 Height 5 ft Weight 46.266 kg BMI 19.9 BP 156/88 H 140/82 H Blood Pressure Location Rt brachial Position Sitting Respiration 22 H Pulse 56 Pulse Source Pulse Oximeter Temp 97.9 F Temp Source Temporal Artery Scan Pulse Oximetry (%) 87 L 95 Oxygen Delivery Method Nasal Cannula Oxygen Flow Rate 2 Intake Visit Reasons: 2 month f/u wants to have Tracy Guevara as a pcp Laboratory Development Technician Required: No Accompanied by: Self / Same As Patient Allergies No Known Allergies Allergy (Mild, Verified 10/01/25 12:58) N/A Medication List - Last Reconciled 10/01/25 by RACIEL Hoskins benzonatate 100 mg PO TID PRN fluticasone furoate-vilanterol 200-25 mcg/dose (Breo Ellipta) 1 inh inhalation DAILY guaifenesin 400 mg (10 mL) PO Q6H PRN hydrocodone-homatropine 5-1.5 mg/5 mL 5 mL PO QID PRN ipratropium-albuterol 0.5 mg-3 mg(2.5 mg base)/3 mL 3 mL inhalation Q4H PRN metoprolol succinate ER 12.5 mg PO BID naproxen sodium (Aleve) 220 mg PO BID PRN tiotropium bromide (Spiriva with HandiHaler) 1 cap inhalation DAILY 30 days Tobacco use date assessed: 05/08/25 Dental Screening Dental Screen Date: 05/08/25 HPI HPI Comments History of Present Illness Details The patient is a 89 year old female with a past medical history of hypertension, GERD, barretts, COPD, SAYDA, lung cancer, back pain presenting for follow up. Low back pain with pain across the pelvis at that time. Xray was ordered. No fracture was identified. Still having quite severe low back pain, pelvic pain. Improving CV: On metoprolol-12.5 twice daily, losartan 50mg twice daily. Blood pressure well controlled COPD/SAYDA/history of pulmonary nodule: on spiriva, breo. SAYDA untreated. She is on 2 L supplemental O2 at all times. She has been using Hydromet scheduled for chronic cough which was then discontinued and given Robitussin with codeine instead. 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 Fell and his head on oxygen unit. No LOC. Bruises on legs. ?mechanical. No prodrome. Requires assisted from son and staff member. No ED. ROS: See HPI EXAM: Constitutional - Awake and Alert, No apparent distress Eyes - PERRL Cardiovascular - S1S2, RRR, No edema Respiratory - Normal lung expansion, Normal respiratory effort, No respiratory distress, CTA bilaterally Extremities - no calf tenderness bilaterally, no swelling Skin - Warm/Dry. Ecchymosis noted on the left posterior calf, right frontal/temporal area Neurological - Alert & oriented x3 Psychological - Appropriate affect [facility] Medical History (Updated 07/31/25 @ 14:07 by Vinicio Live MD) Physical debility Hypertension Exercise hypoxemia COPD (chronic obstructive pulmonary disease) Cough in adult patient Family History Father No problems noted. Mother No problems noted. Social History Household Members: Family Housing: House Do you presently have visiting nurse or other home services: No Alcohol intake: current Alcohol intake frequency: does not drink Patient Tobacco Use Status: Former Tobacco user e-Cigarette/Vaping Use: Former Use service: No Current occupational status: retired Cognitive needs: No Hearing needs: No Vision needs: No Questionnaire Thrive Questionnaire Date Thrive assessed: 05/28/25 AUGUSTUS-7 AMB Questionnaire AUGUSTUS-7 Date AUGUSTUS - 7 assessed: 05/08/25 Source: Developed by Drs. Kyle Lambert, Luz Irene, Acosta Lindsey and colleagues, with an educational zandra from [employer]. Physical exam (Primary Care) Vital Signs: Last Vital Signs Temp 97.9 F 10/01/25 13:03 Pulse 56 10/01/25 13:03 Resp 22 H 10/01/25 13:03 BP 156/88 H 10/01/25 13:03 Pulse Ox 87 L 10/01/25 13:03 Oxygen Delivery Method Nasal Cannula 10/01/25 13:03 Oxygen Flow Rate 2 10/01/25 13:03 BMI result Body Mass Index 19.9 Tobacco/Smoking Status: Tobacco use Status Tobacco use date assessed 05/08/25 10/01/25 13:00 Patient Tobacco Use Status Former Tobacco user 10/01/25 13:00 e-Cigarette/Vaping Use Former Use 10/01/25 13:00 Thrive Assessment: Date of Thrive Assessment Date Thrive assessed 05/28/25 10/01/25 13:00 Coding Level of Care Code Est Pt Level 4 (76456) Complex visit Add On G2211 Diagnoses Hypertension, unspecified type I10 Hypertension type: unspecified Cough in adult patient R05 Chronic obstructive pulmonary disease with acute exacerbation J44.1 COPD type: COPD with acute exacerbation Exercise hypoxemia R09.02 Assessment & Plan Assessment & Plan (1) Hypertension: Comment: Continue metoprolol succinate 12.5 daily Code(s): I10 - Essential (primary) hypertension Category: Medical Qualifiers: Hypertension type: unspecified Qualified Code(s): I10 - Essential (primary) hypertension Plan: Reasonably controlled for age. Continue Toprol 12.5 mg twice daily (2) Cough in adult patient: Comment: CHRONIC COUGH, NONSPECIFIC,, MAY BE PARTLY DUE TO CHRONIC OBSTRUCTIVE AIRWAY DISORDER. AND DUE TO MINIMAL FIBROTIC CHANGES IN THE RIGHT LOWER LOBE , AFTER THE PREVIOUS SURGERY. [place] :FOR CONTROL OF COUGH ADVISED THAT SHE SHOULD USE COUGH DROPS MORE FREQUENTLY. USE STEAM INHALATIONS 2 OR 3 TIMES A DAY. FOR SEVERE COUGH MAY CONTINUE TO USE HYDROCODONE-HOMATROPINE SOLUTION 5 ML .Q 6 HOURS P.R.N. MOSTLY IN THE MORNINGS AND EVENINGS. Code(s): R05 - Cough Category: Medical Plan: Given prescription for guaifenesin and benzonatate to use as needed. Discussed these should only be used as needed and if cough continues to be regular, she should see her core manager as this could be related to her COPD. Continue maintenance inhalers (3) COPD (chronic obstructive pulmonary disease): Comment: - Continue Breo Ellipta and Spiriva inhalers. - Ensure prescription for nebulizer medication is refilled; emphasize the necessity of maintaining oxygen therapy, with caution against smoking. - Recently admitted to the hospital where she was hypoxic and since been discharged on 2L of home oxygen Code(s): J44.9 - Chronic obstructive pulmonary disease, unspecified Category: Medical Qualifiers: COPD type: COPD with acute exacerbation Qualified Code(s): J44.1 - Chronic obstructive pulmonary disease with (acute) exacerbation Plan: Reviewed last pulmonology note. Continue Breo, albuterol PRN as well as Spiriva (4) Exercise hypoxemia: Comment: HER O2 SAT AT REST IS LOW NORMAL. SHE QUICKLY DESATURATES ON WALKING. HAS BEEN PROVIDED WITH A PORTABLE OXYGEN CONCENTRATOR (POC ). SHE STATES THAT IS TOO HEAVY FOR HER TO CARRY ON THE SHOULDER. DME HE DOES NOT HAVE A SPEECH AND LANGUAGE TUTOR WEIGHT POC. THAT WILL BE COVERED BY INSURANCE. THE BEST SOLUTION IS THAT SHE SHOULD BUY A SMALL ROLLING CART IN WHICH SHE CAN PUT THE POC. SHE DOES NEED TO USE PORTABLE OXYGEN WHEN SHE GOES OUTDOORS OR DOES ANY HEAVY PHYSICAL WORK AT HOME. Code(s): R09.02 - Hypoxemia Category: Medical Plan: Secondary to COPD. Continue 2 L supplemental O2 at all times Plan Follow-up in the office in 6 months with labs to be completed prior to visit Orders: Orders Liver Panel 6 Months I10 - Essential (primary) hypertension, I50.9 - Heart failure, unspecified, J44.1 - Chronic obstructive pulmonary disease with (acute) exacerbation Basic Metabolic Panel 6 Months I10 - Essential (primary) hypertension, I50.9 - Heart failure, unspecified, J44.1 - Chronic obstructive pulmonary disease with (acute) exacerbation Complete Blood Count Auto Diff 6 Months I10 - Essential (primary) hypertension, I50.9 - Heart failure, unspecified, J44.1 - Chronic obstructive pulmonary disease with (acute) exacerbation Lipid Panel 6 Months I10 - Essential (primary) hypertension, I50.9 - Heart failure, unspecified, J44.1 - Chronic obstructive pulmonary disease with (acute) exacerbation Medications: New benzonatate If no improvement with robitussin 100 mg PO TID PRN 90 caps 2RF cough guaifenesin 400 mg (10 mL) PO Q6H PRN 118 mL 2RF cough Discontinued hydrocodone-homatropine 5-1.5 mg/5 mL Patient may pay out pocket Discontinued Reason: Doctor's Order 5 mL PO QID PRN 600 mL 0RF cough J44.9 - Chronic obstructive pulmonary disease, unspecified, R05.9 - Cough, unspecified
[2025-10-01 13:03] VITALS: BP 156/88; PULSE 56; RESP 22; TEMP 36.6; O2SAT 87; BMI 19.9
--- OUTSIDE RECORDS SUMMARY | 2025-10-02 00:43 | XMS_ITS | Patient Health Record ---
Author Organization Kyle Lechuga III, MD Address [address] [place] [address] Care Team Providers Care Software Engineering Associate Manager Name Role Phone Júnior Sunshine MD Primary Care Provider Dr. Kyle Gomes III Unavailable [phone] Allergies No Known Allergies Reason For Referral [...] Problem Status W/U Status Risk Notes Problem 8320395 Former smoker (Z87.891) Active confirmed She is highly motivated not to smoke. She has a plan to prevent relapse in times of stress and illness. Problem 27442069 Hypertension (I10) Active confirmed Her blood press ure stable at this time and no change in her regimen is necessary. Problem 36937419 COPD (chronic obstructive pulmonary disease) (J44.9) Active confirmed Her COPD is stable and she is breathing room air comfortably. No change in her regimen was necessary. Problem 16587992 Colonic polyp (K63.5) Active confirmed Problem 277560615 Osteoarthritis (M19.90) Active confirmed Problem 612351551 Barretts esophagus (K22.70) Active confirmed I have strongly recommended that she see a director index periodically for endoscopy. She has agreed to do so. Problem 475003134 Adenocarcinoma of lung (C34.90) Active confirmed There is cu rrently no sign of recurrent disease and she is comfortable breathing room air. He is medically stable only be followed annually. 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 Kyle Bhardwaj right lower lobectomy, adenocarcinoma of lung 07/2013
--- OUTSIDE RECORDS SUMMARY | 2025-10-02 00:43 | XMS_ITS | Patient Health Record ---
Author Organization [facility] Address [address] [place] [address] Care Team Providers Care Retail Management Trainee Name Role Phone Bhardwaj Kyle Unavailable [phone] Reason For Referral No Information Plan Of Treatment No Information
--- OUTSIDE RECORDS SUMMARY | 2025-10-02 00:43 | XMS_ITS | Clinical Summary ---
Author Organization Located Within [facility] Address [address] [place] [id number] Phone Care Team Providers Care Hot Stick Worker Name Role Phone Júnior Sunshine MD Primary [...] result, may benefit from repeat GI evaluation. Family History Medical History Relation Comments CV [...] (#1) 2025 7, 08/18/2016, 07/07/2015 COVID-19 VACCINE ( season) 2025 01/15/2021, 12/25/2020 CREATININE LEVEL 06/19/2026 [...] Date/Time Associated Diagnosis Comments BASIC METABOLIC PANEL (BMP) Routine 06/19/2025 6:58 AM EDT Heart failure, unspecified HF chronicity, unspecified heart failure type from Last 3 Months or Most Recently Relevant to Health Maintenance Results * (ABNORMAL) Basic metabolic panel (06/19/2025 6:58 AM EDT) SODIUM 136 133 - 146 mmol/L [facility] CHLORIDE 100 96 - 108 mmol/L [facility] POTASSIUM 5.3(H) 3.3 - 5.1 mmol/L [facility] CO2 26 21 - 35 mmol/L [facility] BUN 20(H) 6 - 19 mg/dL [facility] CREATININE 1.00 0.5 - 1.5 mg/dL [facility] GLUCOSE 82 70 - 99 mg/dL [facility] CALCIUM 9.5 8.4 - 10.3 mg/dL [facility] EGFR 54(L) >59 mL/min/1.7 3m2 [facility] Comment:Estimated glomerular filtration rate calculated using the CKD-EPI refit equation. ANION GAP 15 10 - 20 mmol/L [facility] 06/19/2025 6:58 AM EDT 06/19/2025 8:36 AM EDT us Dejuan Neil MD LAB BLOOD BKR ORDERABLES Final R esult [facility] [address] [place] [address] from Last 3 Months or Most Recently Relevant to Health Maintenance Insurance MEDICARE PART A & B Member Subscriber Plan / Payer (Ef fective 1991-Present) Name:Billie Rangel Member ID:[id number] Relation to Subscriber:Self Name:Billie Rangel Subscriber ID:[id number] Payer ID:[id number] Group ID:Not on file Type:Medicare Address: [facility] [address] [place] [address] [employer] PPO MEDICARE REPLACEMENT MEDICARE PART A & B [employer] PPO MEDICARE REPLACEMENT MEDICARE PART A & B MEDICARE PART A & B MEDICARE PART A & B [place] [address] MEDICARE PART A & B MEDICARE PART A & B [employer] PPO MEDICARE REPLACEMENT MEDICARE PART A & [facility] MEDICARE PART A & B AET[employer] O MEDICARE REPLACEMENT Care Teams Hot Stick Worker Relationship Specialty Start Date End Date Júnior Sunshine MD [address] [place] [address] [place] [address] PCP - General 08/31/17 Additional Source Comments The information contained in this document represents components of the legal health record. It is not the complete legal health record.Located Within [facility]
--- OUTSIDE RECORDS SUMMARY | 2025-10-02 00:43 | XMS_ITS | Data Portability ---
Author Organization [facility] [employer] [facility], Main Office Address [address], [address] [place] [address] Care Team Providers Care Parakeet Raiser Name Role Phone [facility] ([facility]) OTHER Assessment Encounter Date Assessment Date Assessment LastModified by Organization Details LastModified Time 06/04/2025 06/04/2025 Labs: - Sodium: 127 mmol/L - Potassium: 4.9 mmol/L - BUN: 18 mg/dL - Creatinine: 0.82 mg/dL - Hemoglobin: 11 g/dL - Hematocrit: 32.6% - WBC: 7.4 10 / L glord Not available 06/05/2025 13:06:58 Plan of Treatment Reminders Order Date Submit Date Provider Last Modified By Organization Details Last Modified Time Details Appointments None record ed. Lab None record ed. Referral None record ed. Procedures None record ed. Surgeries None record ed. Imaging None record ed. Medication Orders None record ed. Patient TargetsNo targets recorded. Patient InstructionsNo instructions recorded. Reason for Referral None Reported. Problems Name Problem SNOMED Code Status Onset Date Resolution Date Notes Provider Name and Address Organization Details Recorded Time Chronic hypoxemic respirator y failure 534247481 Active [address], [address], [place], [address] , [facility] 5 22:20:55 Lumbar radiculopa thy 332199743 Active 2024 Not Available [facility] 5 10:48:47 Essential hypertensi on 72197375 Active 2024 SAMY LORD [address] [facility], [address], [place], [address] , [facility] 5 22:21:14 Gastroesop hageal reflux disease without esophagiti s 299923876 Active 2024 SAMY [address] [facility], [address], [place], [address] , [facility] 5 22:23:00 Acute exacerbati on of chronic obstructiv e pulmonary disease 568280043 Active 2024 Not Available [facility] 5 10:39:53 Congestive heart failure 18481429 Active 2024 Not Available [facility] 5 10:40:53 Hypo-osmol ality and or hyponatrem ia 297514035 Active 2024 Not Available [facility] 5 10:42:51 Hypokalemi a 96497572 Active 2024 Not Available [facility] 5 10:43:50 Neoplasm of respirator y tract 932425715 Active 2024 Not Available [facility] 5 10:48:48 Nodule of lung 627309501 Active 2024 SAMY FUENTES [address] [facility], [address], [place], [address] , [facility] 5 12:33:45 Pulmonary emphysema 83799418 Active 2024 Ilana Sales MD [address] [facility], [address], [place], [address] , [facility] 5 17:00:05 Anemia 644299857 Active 2024 Ilana Sales MD [address] [facility], [address], [place], [address] , [facility] 5 16:53:50 Congestive heart failure with right heart failure 1547314972489 9 Active 2024 Ilana Sales MD [address] [facility], [address], [place], [address] , [facility] 5 21:20:04 Problem Notes None recorded. Medical Equipment None Reported. Allergies No known drug allergies Medications Name Sig Start Date Stop Date Status Note LastModified by Organization Details LastModified Time acetaminoph en 325 mg tablet Give 2 tablet by mouth every 6 hours as needed for Pain Do not exceed 3 grams in 24 hours.Tot al 650 mg AND Give 2 tablet by mouth every 6 hours as needed for Elevated temp >101 Do not exceed 3 grams in 24 hours.Tot al 650 mg 2024 active Not Available Not Available Not Avai lable prednisone 10 mg tablet Give 1 tablet by mouth one time a day for chf for 2 Days Take with food. 06/08 completed Not Available Not Available Not Available ipratropium 0.5 mg-albutero l 3 mg (2.5 mg base)/3 mL nebulizatio n soln 1 vial inhale orally via nebulizer every 4 hours as needed for Shortness of Breath/Wh eeze 06/06 completed Not Available Not Available Not Available Hydromide 5 mg-1.5 mg/5 mL oral solution Give 5 ml by mouth every 12 hours as needed for cough May cause drowsines s. Avoid alcohol. AND Give 5 ml by mouth two times a day for cough 2024 active Not Available Not Available Not Avai lable albuterol sulfate 1.25 mg/3 mL solution for nebulizatio n 1 vial inhale orally via nebulizer every 4 hours as needed for SOB/COUGH 2024 active Not Available Not Available Not Avai lable furosemide 20 mg tablet Give 1 tablet by mouth one time a day for diuretic 2024 active Not Available Not Available Not Avai lable metoprolol succinate ER 25 mg tablet,exte nded release 24 hr Give 12.5 mg by mouth two times a day for hypertens ion Take with or immediate ly following meals. Do not crush. 2024 active Not Available Not Available Not Avai lable Laxative (sennosides ) 8.6 mg tablet Give 1 tablet by mouth every 24 hours as needed for Constipat ion 2024 active Not Available Not Available Not Avai lable Sterapred 5 mg tablet Give 1 tablet by mouth one time a day for chf for 2 Days To be given with Food 06/10 completed Not Available Not Available Not Available Spiriva with HandiHaler 18 mcg and inhalation capsules 2 puff inhale orally one time a day for SOB/COUGH Do not swallow. Press green piercing button once. (1 cap = 2 inhalatio ns. 2024 active Not Available Not Available Not Avai lable sodium phosphates 19 gram-7 gram/197 mL enema Insert 1 unit rectally every 24 hours as needed for Constipat ion Use only if Bisacodyl Supposito ry is ineffecti ve 2024 active Not Available Not Available Not Avai lable Acid Motor Coach Operator (omeprazole ) 20 mg capsule,del ayed release Give 1 capsule by mouth one time a day for gerd Take on empty stomach. Do not crush. May be opened and sprinkled on applesauc e. 2024 active Not Available Not Available Not Avai lable OneLAX Bisacodyl 10 mg rectal suppository Insert 1 supposito ry rectally every 24 hours as needed for constipat ion Use if Senna is Ineffecti ve 2024 active Not Available Not Available Not Avai lable Vitals Date Recorded Body height Body mass index (BMI) Body weight Heart rate Respiratory rate Body temperature Oxygen saturation Oxygen saturation in Arterial blood by Pulse oximetry Inhaled oxygen flow rate Systolic And Diastolic Provider Name and Address Organization Details Last Updated DateTime 5 144.78 cm 22.5 kg/m2 34974.3 2 g 64 /min 18 /min 97.4 [degF] 92 % 92 % 2 L/min 150/74 mm[Hg] Ilana Sales MD [address] , [address], [place], [address], [facility] 5 14:59:43 Social History Question Answer Notes LastModified by Organizat ion Details LastModified Time Tobacco Smoking Status Former Smoker smoked 1 ppd 1967- Ilana Sales MD [address] , [address], [place], [address], [facility] 06/05/2025 15:15:45 Do You Have An Advance Directive? Yes Information not available 06/05/2025 What Is Your Code Status? Full Code [email or web address] Information not available 06/05/2025 Where Do You Live? SingleLevelHouse With Son, Several Steps To Enter And Flight To The Basement. Information not available 06/05/2025 Legal Guardian? No Informati on not available 06/05/2025 Do You Have A Medical Power Of Electric Relay Tester? Yes Not Invoked Information not available 06/05/2025 What Was The Date Of Your Most Recent Tobacco Screening? 06/05/2025 Information not available 06/05/2025 Do You Have An Out Of Hospital DNR? No Information not available 06/05/2025 What Is Your Relationship Status? Information not available 06/05/2025 How Much Tobacco Do You Smoke? No Information not available 06/03/2025 Has Tobacco Cessation Counseling Been Provided? No N/a As Pt No Longer Smokes Information not available 06/05/2025 How Many Years Have You Smoked Tobacco? 23 Information not available 06/05/2025 Sex: Unknown Functional Status Question Answer Note LastModified by Organizat ion Details LastModified Time Do you use any illicit or recreational drugs? No Information not available 06/03/2025 Do you or have you ever used any other forms of tobacco or nicotine? No Information not available 06/03/2025 What is your level of alcohol consumption? None Information not available 06/03/2025 Mental Status None recorded. Family History Relationship Description Onset Age of this Age Resolved Age Notes LastModified by Organization Details LastModified Time Father No current problems or disability glord Not available 06/03 22:20:19 Mother No current problems or disability glord Not available 06/03 22:20:20 Notes:n/c Medical History No medical history recorded. Gynecological HistoryNo gynecological history recorded. Obstetrics History GPAL:G 0 P 0 0 0 0 Past Encounters Encounter ID Performer Location Encounter Start Date Encounter Closed Date Diagnosis/Indication Diagnosis SNOMED-CT Code Diagnosis ICD10 Code Diagnosis IMO Codes Diagnosis Note [id number] SAMY LORD Smith at [facility] on [address] [place] [address] 06/05/2025 12:30:12 06/06/2025 11:13:07 Congestive heart failure 67138294 I50.9 10102303 lasix 20 mg dailymonit or fluid volume status, weights, labs Chronic hy poxemic respiratory failure 961696737 J96.11 68629217 duonebs QIDcontinu e prednisone taper per MARhydroco done cough syrup prnmonitor resp status Essential hypertension 45269156 I10 29500 continue metoprolol 12.5 mg BIDmonitor VS q shift History of chronic obstructive airway disease 855267588 Z87.09 2631099 on cont 02now with pulm nodule, will have outpt PET Gastroesop hageal reflux disease without esophagitis 671704166 K21.9 643126 omeprazole 20 mg dailymonit or sxs Nodule of lung 453751326 R91.1 366960 11 x 6 x 11follow up outpt with PET scanpulm to follow [id number] Ilana Sales MD [facility] on [address] [place] [address] 06/05/2025 14:41:58 06/09/2025 13:32:37 Anemia 234899052 D64.89 39526353 With marked drop in hgb since 10/2024.Wa s 13.9 in 10/2024 and now 09-24.Will get anemia labs with next lab draw and heme test stool x3.Monitor CBC weekly. Pulmonary emphysema 8743 3001 J43.8 42759 Not back to baseline.H ad marked desat with walking today.Will change duonebs to scheduled QID and add albuterol nebs q 4 hrs prn.Also Breo Ellipta not transcribe d from d/c orders to [facility], so pt hasn't been getting.Ad d back Breo 100/25 mcg qd.Will restart Spiriva qd which pt was on before (says it was stopped due to insurance non-covera ge).Will change Hycodan cough syrup from 5 ml q 6 hrs prn to BID scheduled and BID prn.Contin ue prednisone taper.Amanda tor resp status.Con sult resp therapist. Needs f/u with pulmonary, being arranged. Chronic hy poxemic respiratory failure 189582095 J96.11 70722616 Due to combinatio n of above.Meds and f/u as above. Gastroesop hageal reflux disease without esophagitis 157382375 K21.9 315097 No GI sxs, but on omeprazole due to chronic cough.Cont inue omeprazole 20 mg qd.Monitor sxs. Essential hypertension 13304646 I10 99784 SBP was very elevated inpt, but had been good since here until this afternoon with borderline high SBP.No changes for now.Contin ue metoprolol 12.5 BID and Lasix 20 mg qd.Carline n stopped inpt due to hyperkalem ia.Monitor BP and labs. Nodule of lung 157733612 R91.1 686360 New spiculated nodule on CT scan.To f/u with pulmonary for PET scan and bx. Congestive heart failure with right heart failure 6403239027 9109 I50.075 7868281 Appears euvolemic. Continue Lasix 20 mg qd and metoprolol 12.5 mg BID.Monito r resp. status, fluid status, wts and labs. Hyponatremia 45870392 E8 7.1 86595 Resolved inpt with diuresis.L ikely combinatio n of fluid overload and lung disease.Mo nitor BMP weekly. Hypokalemia 93917197 E87 .6 9791 Normalized inpt after losartan d/c'd and one dose of lokelma.No w creeping up again.No clear reason and being on lasix should help.Monit or BMP weekly. Asthenia 06774490 R53.1 29486 Very deconditio paxton.Needs PT/OT for strengthen ing, balance, gait training, safety and function.C ontinue fall precaution s.Monitor for safety. Health Concerns Section Related Observation LastModified by Organization Detai ls LastModified Time None Recorded Concern Status LastModified by Organization Details LastModified Time None Recorded Advance Directives Directive Y: Payers Insurance Date Sequence Insurance Name Policy Number Policy Chen Covered Member ID Chen Member ID Guarantor Name 06/04/2025 1 [employer] (MEDICARE REPLACEMENT/ ADVANTAGE - PPO) [id number] Mac Rangel [id number] Billie Rangel Notes Date Note Type Note Provider Name and Address Organization Details Recorded Time 06/04/2025 text/html The patient is a 89-year-old female, with a history of chronic hypoxemic respiratory failure secondary to COPD, lumbar radiculopathy, and HTN, seen today for an initial intake visit. The patient presented to [facility] emergency room for evaluation of dyspnea, which began one week prior to admission. She also reported easy fatigue, malaise, and overall weakness. She is currently on supplemental oxygen at 2 L/min while ambulating due to COPD.Laboratory results showed sodium 127, potassium 4.9, BUN 18, creatinine 0.82, hemoglobin 11, hematocrit 32.6, and WBC 7.4. She was found to be in acute CHF with ED of >70% and was started on IV diuretics and IV steroids. Lung imaging found incidental module in right upper lobe measuring 11 x 6 x 11 mm and pulm was consulted. She will have outpt PET scan and possible biopsy. She was diuresed 4.67 L of fluid and started on PO lasix. Once stable she was discharged to [facility]. SAMY [address], [address], [place], [address], [facility] 06/05/2025 13:07:04 06/05/2025 text/html This is an 89 yo woman with COPD and hx of lung CA on home O2 with exertion only at baseline, who is here for rehab after an acute hospitalization for hypoxic resp failure due to COPD exacerbation and CHF exacerbation. [facility] c/o of one wk of increasing weakness and SOB.No wheezing or cough. No fever or chills. She denies chest pain, palpitations, abdominal pain, changes in urinary or bowel habits. At baseline she uses supplemental O2 with exertion only, but was needing it all the time. Vitals were notable for HTN of 205/88, P-56, O2 sat 96% on 4L by NC.Eval showed sodium 127, potassium 4.9, BUN 18, creatinine 0.82, hemoglobin 11, hematocrit 32.6, WBC 7.4, BNP-2171.CXR showed Again seen is blunting of the right costophrenic anglesconsistent with pleural thickening. The lungs are clear. There is nopleural effusion, pneumothorax, or pulmonary vascular congestion. Theheart remains enlarged. She was txed for COPD and CHF with nebs, steroids and diuresis.Continued on supplemental O2 titrated to sats >90%Hyponatremia was new for this pt and was monitored with diuresis.For her systolic HTN she was continued on home meds as well as lasix. She had a chest CT which showed Postsurgical changes on the right. New irregular spiculated nodule in the right upper lobe measuring 11 x 6 x 11 mm. Findings are suspicious for neoplasm .Outpt f/u was recommended. Put on Lovenox for DVT prophylaxis. Her Na+ improved and she developed ANGELA with diuresis.Her fluid balance was neg 4.67 LRenal function improved when transitioned to po lasix. She developed urinary retention and needed malhotra for 24 hrs, uro consult recommended doxazosin and then voiding trial, which was successful. Echo showed EF of >70% with severe pulmonary HT, c/w right sided heart failure. She developed hyperkalemia and losartan was stopped and she got a dose of lokelma with good effect. She wastransferred here on 06/03. Since here she has been evaluated by rehab. She is SBA for transfers, mod assist for ambulating 10 ft. and mod assist for lower body dressing.Today when working with PT her sat dropped to 82% on 2L while ambulating, with slow recovery at rest to 92% over 5 Her HR remained the same and she had min SOB. She tells me she has had this cough ever since lung CA dx in 2010.Has been on hycodan since then, tries to only take it 2x/d, but sometimes needs it a third.Doesn't use nebulizer or rescue inhaler at home.Does get SOB, but improves with rest quickly at baseline.She says she does feel like she has to take deep breaths when her O2 dropped today, but wouldn't describe this as SOB.Discussed new anemia, no known bleeding or dark stools Her PMH includes HTN, right sided heart failure, COPD on home O2 with exertion, GERD with chronic cough, hx of lung CA s/p RLL resection, lumbar radiculopathy, new pulmonary nodule, and anemia. Ilana Sales MD [address] [facility], [address], [place], [address], [facility] 06/05/2025 21:23:14 OBGyn Episode No OBEpisode recorded.
--- OUTSIDE RECORDS SUMMARY | 2025-10-02 00:43 | XMS_ITS | Encounter Summary ---
Author Organization [facility] Address [address] [facility] [address] [place] [address] Phone Care Team Providers Care Body Worker Name Role Phone Júnior Sunshine MD Primary Care Provider Encounter Details Date Type Department Care Team (Late st Contact Info) Description 04/20/2020 Transcribe Orders [address] [address] Júnior Sunshine MD [address] [place] [address] [place] [address] Hypertension, unspecified type (Primary Dx); Avitaminosis D Social History Tobacco Use Types Packs/Day Years Used Date Smoking Tobacco: Former Cigarettes 1 1990 Smokeless Tobacco: Never Comments Unknown Sex [...] EDT) WBC 8.91 4.00 - 11.00 K/uL [facility] Comment:Note Reference Range updates to all CBC and Differential results. RBC 4.90 3.72 - 5.30 M/uL [facility] HGB 14.3 11.4 - 15.9 g/dL [facility] Comment:Note updated Referen ce Ranges for all CBC and Differential results. HCT 43.8 34.2 - 46.8 % [facility] PLT 305 140 - 430 K/uL [facility] MCV 89.4 78.0 - 97.0 fL [facility] MCH 29.2 25.0 - 33.0 pg [facility] MCHC 32.6 32.0 - 36.0 g/dL [facility] RDW 15.0 11.0 - 16.0 % [facility] MPV 12.4 8.4 - 12.8 fl [facility] NRBC 0.00 0 /100 WBCs [facility] ABSOLUTE NRBC 0.00 0 K/uL [facility] DIFF METHOD Auto [facility] NEUTS 63.7 43.0 - 75.0 % [facility] LYMPHS 19.6 18.2 - 47.4 % [facility] MONOS 13.2(H) 4.00 - 11.00 % [facility] EOS 1.8 0.0 - 8.0 % [facility] BASOS 1.1 0.0 - 2.0 % [facility] Granulocytes, immature (%) 0.6 0.0 - 0.9 % [facility] ABSOLUTE NEUTS 5.67 1.80 - 7.70 K/uL [facility] ABSOLUTE LYMPHS 1.75 1.00 - 3.10 K/uL [facility] ABSOLUTE MONOS 1.18(H) 0.20 - 0.80 K/uL [facility] ABSOLUTE EOS 0.16 0.00 - 0.80 K/uL [facility] ABSOLUTE BASOS 0.10(H) 0.00 - 0.09 K/uL [facility] Granulocytes, immature 0.05 0.00 - 0.05 K/uL [facility] Blood 04/20/2020 9:24 AM EDT 04/20/2020 11:19 AM EDT us Júnior Sunshine MD LAB BLOOD BKR ORDERABLE S Final Result [facility] [address] [place] [address] * 25-OH vitamin D (04/20/2020 9:24 AM EDT) 25 OH VIT D (TOTAL) 37 30 - 60 ng/mL [facility] Blood 04/20/2020 9:24 AM EDT 04/20/2020 11:19 AM EDT Júnior Sunshine MD LAB BLOOD BKR ORDERABLE S Final Result [address] [address] * (ABNORMAL) Comprehensive metabolic panel (04/20/2020 9:24 AM EDT) SODIUM 136 133 - 146 mmol/L [facility] POTASSIUM 4.9 3.3 - 5.1 mmol/L [facility] CHLORIDE 102 96 - 108 mmol/L [facility] CO2 20(L) 21 - 35 mmol/L [facility] BUN 18 6 - 19 mg/dL [facility] CREATININE 0.80 0.5 - 1.5 mg/dL [facility] GLUCOSE 96 70 - 99 mg/dL [facility] ALBUMIN 4.0 3.9 - 4.8 g/dL [facility] TOTAL PROTEIN 7.4 6.5 - 8.0 g/dL [facility] CALCIUM 10.0 8.4 - 10.3 mg/dL [facility] ALKALINE PHOSPHATASE 70 39 - 117 U/L [facility] TOTAL BILIRUBIN 0.3 0.0 - 1.2 mg/dL [facility] AST 28 0 - 37 U/L [facility] ALT 12 0 - 40 U/L [facility] GLOBULIN 3.4 1 - 4.8 g/dL [facility] EGFR 68 >59 mL/min/1.7 3m2 [facility] Comment:If patient is black, multiply result by 1.159. Estimated glomerular filtration rate calculated using the CKD-EPI equation. ANION GAP 19 10 - 20 mmol/L [facility] Blood 04/20/2020 9:24 AM EDT 04/20/2020 11:19 AM EDT us Júnior Sunshine MD LAB BLOOD BKR ORDERABLE S Final Result [address] [address] documented in this encounter Visit Diagnoses Diagnosis Hypertension, unspecified type- Primary Avitaminosis D Unspecified vitamin D deficiency documented in this encounter Care Teams Body Worker Relationship Specialty Start Date End Date Júnior Sunshine MD [address] [place] [address] [place] [address] PCP - General 08/31/17 documented as of this encounter Additional Source Comments The information contained in this document represents components of the legal health record. It is not the complete legal health record.[facility]
--- OUTSIDE RECORDS SUMMARY | 2025-10-02 00:43 | XMS_ITS | Encounter Summary ---
Author Organization [facility] Address [address] [place] [address] Phone Care Team Providers Care Processing Technician Name Role Phone Júnior Sunshine MD Primary Care Provider Reason for Referral * Physical Therapy (Routine) - Closed Specialty Diagnoses / Procedures Referred By Contmyrna t Referred To Contact Physical Therapy Diagnoses Encounter for rehabilitation Júnior Sunshine MD [address] [place] [address] [place] [address] Phone: tel: fax: [address] [address] Phone: tel: Referral ID Status Reason Start Date Expiration Date Visits Re quested Visits Authorized [id number] Closed 07/18/2019 11/12/2019 99 [phone] Encounter Details Date Type Department Care Team (Latest Contact Info) Description 07/01/2019 Transcribe Orders [facility] [address] [place] [address] Júnior Sunshine MD [address] [place] [address] [place] [address] Encounter for rehabilitation (Primary Dx) Social History [...] Diagnoses Orde r Schedule Ambulatory referral to [facility] Physical Therapy Outpatient Referral Routine Encounter for rehabilitation Ordered: 07/01/2019 documented as of this encounter Visit Diagnoses Diagnosis Encounter for rehabilitation- Primary documented in this encounter Care Teams Processing Technician Relationship Specialty Start Date End Date Júnior Sunshine MD [address] [place] [address] Dr [place], [place] [address] PCP - General 08/31/17 documented as of this encounter Additional Source Comments The information contained in this document represents components of the legal health record. It is not the complete legal health record.[facility]
[2025-10-03 17:25] VITALS: BP 140/82; O2SAT 95
== END 2025-10-01 13:44 | disposition home or self-care (01) ==
PROVIDERS: PCP Physician Assistant; Visit Provider Physician Assistant
DX: I10 Essential (primary) hypertension (principal); R05.9 Cough, unspecified; J44.1 Chronic obstructive pulmonary disease with (acute) exacerbation; R09.02 Hypoxemia

== ENCOUNTER → 2025-10-01 12:53 | Outpatient (BNVA) | payer MEDICARE, SELFPAY | PROVIDERS: PCP Student in an Organized Health Care Education/Training Program; Visit Provider Physician Assistant | DX: I10 Essential (primary) hypertension (principal); J44.1 Chronic obstructive pulmonary disease with (acute) exacerbation; I50.9 Heart failure, unspecified; M54.50 Low back pain, unspecified; Z99.89 Dependence on other enabling machines and devices | CPT/HCPCS: 99212 ==